=== PATIENT | female | born 1955 | race Caucasian/White ===

== ENCOUNTER 2017-04-12 08:50 | Inpatient (IN) | payer OTHER, MEDICARE ==
[2017-04-12 09:16] VITALS: BMI 34.1
--- NOTE | 2017-04-12 09:16 | PDOC ---
History of Present Illness - General Stated Complaint: SHORTNESS OF BREATH Time Seen by Provider: 04/12/17 08:58 History Source: Patient - History of Present Illness Initial Comments: 04/12/17 09:16 CC: "I have pain all over" Patient is a 61 y.o. female with a PMH SCC (R lung, Stage 3A, s/p chemotherapy + R middle lobectomy), recent (w/in last 2-3 months) hiatal hernia repair as well as brain aneurysm who presents c/o 3 day h/o of falls and chest pain. Patient states her chest pain started this morning after her 2:30 a.m. fall is stabbing, bilateral, extends bilaterally around her rib cage and is not pleuritic. Patient states she has been falling multiple times while trying to ambulate and is unable to identify any focal weakness ("I just fall") and denies any pre-fall lightheadedness, chest pain, diaphoresis or exacerbation of her baseline shortness of breath. PMD: Patient recently relocating from [place] to , establishing care with Dr. Goss Past surgical: Hiatal hernia repair, R middle lobe lobectomy Social: (-) cigarettes, (-) alcohol, (-) marijuana/cocaine/heroin Allergies: Lorazepam, Codeine, Merperidine + multiple non medication allergies, no latex allergy, allergy to nylon Past History - Past Medical History Allergies/Adverse Reactions: Allergies Allergy/AdvReac Type Severity Reaction Status Date / Time codeine Allergy Verified 04/12/17 09:05 ethyl alcohol Allergy Verified 04/12/17 09:05 lorazepam [From Ativan] Allergy Verified 04/12/17 09:05 meperidine HCl [From Demerol] Allergy Verified 04/12/17 09:05 nylon Allergy Verified 04/12/17 09:05 peanut Allergy Verified 04/12/17 09:05 sulfamethoxazole Allergy Verified 04/12/17 09:05 [From Bactrim] trimethoprim [From Bactrim] Allergy Verified 04/12/17 09:05 wool Allergy Verified 04/12/17 09:05 Home Medications: Ambulatory Orders Amitriptyline HCl [Elavil -] 50 mg PO DAILY 04/12/17 Aspirin [Aspirin EC] 81 mg PO BID 04/12/17 Atorvastatin Ca [Lipitor] 20 mg PO HS 04/12/17 Cetirizine HCl [Zyrtec -] 10 mg PO DAILY 04/12/17 Diazepam [Valium] 10 mg PO BID 04/12/17 Dicyclomine HCl [Bentyl] 10 mg PO TID 04/12/17 Fluticasone Prop 0.05% Nasal [Flonase -] 2 spray NS DAILY 04/12/17 Gabapentin 800 mg PO TID 04/12/17 Hydrochlorothiazide [Hctz -] 12.5 mg PO DAILY 04/12/17 Hydromorphone [Dilaudid -] 4 mg PO Q4H 04/12/17 Levothyroxine [Synthroid -] 25 mcg PO DAILY 04/12/17 Lidocaine 1 each TP DAILY PRN 04/12/17 Meclizine HCl [Antivert -] 12.5 mg PO TID PRN 04/12/17 Metoprolol Tartrate 25 mg PO BID 04/12/17 Mometasone Furoate [Asmanex 220Mcg -] 1 inh IH DAILY 04/12/17 Montelukast Na [Singulair -] 10 mg PO HS 04/12/17 Pantoprazole Sodium [Protonix -] 40 mg PO DAILY 04/12/17 Paroxetine HCl [Paxil] 30 mg PO DAILY 04/12/17 Sucralfate [Carafate -] 1 gm PO DAILY PRN 04/12/17 Review of Systems - Review of Systems Constitutional: No: Diaphoresis, Fever HEENTM: No: Blurred Vision, Throat Pain Respiratory: No: Shortness of Breath Cardiac (ROS): Yes: Chest Pain, Palpitations ABD/GI: No: Constipated, Diarrhea : No: Burning, Dysuria Neurological: No: Headache, Numbness Psychiatric: No: Anxiety, Depression All Other Systems: Reviewed and Negative *Physical Exam - Physical Exam General Appearance: Yes: Nourished, Thin HEENT: positive: EOMI, Pharynx Normal Neck: positive: Trachea midline, Supple Respiratory/Chest: positive: Lungs Clear, Normal Breath Sounds Cardiovascular: positive: S1, S2 Gastrointestinal/Abdominal: positive: Soft Neurologic: positive: alternative dispute resolution mediator II-XII NML intact, Fully Oriented, Alert ED Treatment Course - LABORATORY CBC & Chemistry Diagram: 04/14/17 06:00 04/14/17 06:00 Medical Decision Making - Medical Decision Making 04/12/17 10:00 Patient is a 61 y.o. female who presents via EMS for a 3 day h/o multiple falls and possible AMS. On PE, patient is somewhat somnolent with slurred speech though A&O x4 with normal neurological exam. Initial DDx includes r/o ACS vs. Brain Hemmorhage vs Brain Aneursym vs. Medication Induced AMS vs. Brain Metastasis PLAN 1. CT Head 2. CXR 3. Sepsis Labs 4. BNP 04/12/17 12:24 UA negative for acute infection; source of infection possibly abdominal given patient's recent hiatal hernia repair, CT Abdomen/Pelvis ordered. As patient has h/o SCC with c/o of dyspnea and no medical documentation readily available, CT chest w/o contrast ordered showed LLL PNA, patient started on Vancomycin and Zoysn and admitted to inpatient medicine under Dr. Rogers. *DC/Admit/Observation/Transfer Diagnosis at time of Disposition: Pneumonia Qualifiers: Pneumonia type: aspiration pneumonia - Discharge Dispostion Condition at time of disposition: Good Admit: Yes
[2017-04-12 09:40] LABS: VENOUS BLOOD GAS HCO3 29.8 meq/L (19-25); VENOUS PH 7.39 (7.32-7.42)
--- NOTE | 2017-04-12 09:53 | PDOC ---
Attending Attestation - Resident Resident Name: Bonny Mayes - ED Attending Attestation I have performed the following: I have examined & evaluated the patient, The case was reviewed & discussed with the resident, I agree w/resident's findings & plan, Exceptions are as noted - HPI HPI: 04/12/17 09:48 61 F with h/o Stage III small cell lung CA, s/p partial lobectomy, currently on chemotherapy (last tx 10/2016), presenting to ER with 3 days of falls, weakness, and 1 day of chest pain + SOB. Pt reports feeling weak over the past 3 days and has had multiple falls. Denies lightheadedness/dizziness, denies LOC. She states that her legs just gave out under her. Pt denies F/C. Denies JUDGE/N/V. Endorses pain in her left chest wall after falling associated with some pain with deep inspiration. Denies SOB otherwise. Denies abdominal pain. Denies dysuria but reports some difficulty voiding completely. Denies incontinence of bowel, no saddle anesthesia, no back pain. Pt also reports having hernia repair surgery 4 weeks ago. Pt notes that she is on dilaudid and valium and last took both last night. Pt's family member states that she often becomes sleepy and slurs her speech when she is tired. They believe she is at her baseline mentation and behavior. - Physicial Exam PE: 04/12/17 11:05 "GENERAL: Somnolent but easily arousable, alert, and fully oriented, in no acute distress HEAD: No signs of trauma EYES: pupils pinpoint but reactive, EOMI, sclera anicteric, conjunctiva clear ENT: Auricles normal inspection, hearing grossly normal, nares patent, oropharynx clear without exudates. Moist mucosa NECK: Normal ROM, supple, no lymphadenopathy, JVD, or masses LUNGS: + bilateral chest wall TTP, Breath sounds equal, clear to auscultation bilaterally. No wheezes, and no crackles HEART: Regular rate and rhythm, normal S1 and S2, no murmurs, rubs or gallops ABDOMEN: Soft, nontender, normoactive bowel sounds. No guarding, no rebound. No masses EXTREMITIES: Normal range of motion, no edema. No clubbing or cyanosis. No cords, erythema, or tenderness NEUROLOGICAL: Cranial nerves II through XII intact. NORMAL speech, 5/5 strength and sensation in all extremities, cerebellar function intact, visual izquierdo intact SKIN: Warm, Dry, normal turgor, no rashes or lesions noted. - Medical Decision Making 04/12/17 11:30 61 F with multiple falls over 3 days, now with L chest wall pain. Pt with fever 100.4 here. Etiology of pt's falls likely related to infectious process. UTI vs PNA vs post-op infection. Pt with no neuro deficits on exam. Consider cardiac etiology of fall given chest pain. however, chest pain is likely 2/2 trauma. Pt had no syncopal episode during falls to suggest arrhythmia. - Labs, trops - CTH - CXR, UA - Consider CTAP to r/o post-op infection - Admit Heart Score/ECG Review - History History: Slightly suspicious - Electrocardiogram EKG: Non specific repolarization disturbance - Age Age: 45-65 - Risk Factors Risk Factors Heart Score: Yes Hx Obesity - ECG Impressions Comment:: 04/12/17 10:17 NSR, no LATRICIA/STDs, TWI in V1-V3 and II, III, aVF, intervals wnl
[2017-04-12 10:00] LABS: BASOPHIL 0.3 % (0-2.0); EOSINOPHIL 2.2 % (0-4.5); MCH 31.2 pg (25.7-33.7); MCHC 32.8 g/dl (32.0-36.0); MEAN CELL VOLUME 94.9 fl (80-96); MEAN PLT VOLUME 8.1 fl (7.5-11.1); NEUTROPHILS 73.9 % (42.8-82.8); PLATELET COUNT 202 K/MM3 (134-434); RDW 14.7 % (11.6-15.6); WHITE BLOOD COUNT 6.8 K/mm3 (4.0-10.0)
[2017-04-12 10:24] LABS: ALBUMIN 3.9 g/dl (3.4-5.0); ANION GAP 10 (8-16); BILIRUBIN,TOTAL 0.6 mg/dL (0.2-1.0); CALCIUM 8.9 mg/dL (8.5-10.1); CO2 30 mmol/L (21-32); CREATININE 1.6 mg/dL (0.55-1.02); GLUCOSE,RANDOM 103 mg/dL (74-106); SGPT/ALT 27 U/L (12-78); TOT PROT 7.2 g/dl (6.4-8.2)
[2017-04-12 10:27] LABS: ALK PHOS 162 U/L (45-117); TROPONIN I < 0.02 ng/ml (0.00-0.05)
[2017-04-12 10:35] LABS: CPK 370 IU/L (26-192); SGOT/AST 29 U/L (15-37)
[2017-04-12 10:44] LABS: INR 1.13 (0.82-1.09); PROTHROMBIN TIME (PATIENT) 12.5 SEC (9.98-11.88)
[2017-04-12 10:47] LABS: ACTIVATED PTT 27.3 SECONDS (26.9-34.4)
[2017-04-12] MEDS ORDERED: POTASSIUM CHLORIDE TABS 20 MEQ TABLET.ER (FP) PO ONE ×2 (11:07→11:11)
[2017-04-12 11:11] LABS: URINE APPEARANCE CLEAR; URINE BILIRUBIN NEGATIVE (NEGATIVE); URINE BLOOD NEGATIVE (NEGATIVE); URINE COLOR YELLOW; URINE GLUCOSE (UA) NEGATIVE (NEGATIVE); URINE KETONE NEGATIVE (NEGATIVE); URINE LEUK ESTERASE NEGATIVE (NEGATIVE); URINE NITRITE NEGATIVE (NEGATIVE); URINE PROTEIN NEGATIVE (NEGATIVE); URINE UROBILINOGEN NEGATIVE mg/dL (0.2-1.0)
[2017-04-12] MEDS ORDERED: PIPERACILLIN/TAZOB 3.375 GM/50 ML PRE-DOCKED IV ONE (13:20)
[2017-04-12] MEDS ORDERED: PIPERACILLIN/TAZOB 3.375 GM 50 ML IVPB ONE (13:26)
[2017-04-12] MEDS ORDERED: SUCRALFATE 1 GM TABLET (FP) PO PRN (15:33)
[2017-04-12] MEDS ORDERED: VANCOMYCIN 1 GRAM (PRE-DOCKED) 250 ML IVPB ONE ×2 (15:45→17:45)
--- NOTE | 2017-04-12 15:47 | HP ---
Admitting History and Physical - Primary Care Physician PCP: Curly Goss - Admission Chief Complaint: unable to obtain History of Present Illness: Ms Chopra is a 61 year old female who is new to our practice who comes in with falls and pain. Patient is incredibly somnolent and I am unable to obtain history. Per ER chief internal auditor she obtained history from the patient's family who were at the bedside. Patient has a history of somnolence and recently has been falling. Per ER note she also complains of chest pain. No further history is obtainable at this time. History Source: Medical Record Limitations to Obtaining History: Clinical Condition - Past Medical History Heme/Onc: Yes: Other (small cell lung cancer) - Past Surgical History Past Surgical History: Yes: Hernia Repair - Smoking History Smoking history: Never smoked Have you smoked in the past 12 months: No - Alcohol/Substance Use Hx Alcohol Use: No - Social History Usual Living Arrangement: Yes: Other (family assistance) ADL: Family Assistance Home Medications - Allergies Allergies/Adverse Reactions: Allergies Allergy/AdvReac Type Severity Reaction Status Date / Time codeine Allergy Verified 04/12/17 09:05 ethyl alcohol Allergy Verified 04/12/17 09:05 lorazepam [From Ativan] Allergy Verified 04/12/17 09:05 meperidine HCl [From Demerol] Allergy Verified 04/12/17 09:05 nylon Allergy Verified 04/12/17 09:05 peanut Allergy Verified 04/12/17 09:05 sulfamethoxazole Allergy Verified 04/12/17 09:05 [From Bactrim] trimethoprim [From Bactrim] Allergy Verified 04/12/17 09:05 wool Allergy Verified 04/12/17 09:05 - Home Medications Home Medications: Ambulatory Orders Amitriptyline HCl [Elavil -] 50 mg PO DAILY 04/12/17 Aspirin [Aspirin EC] 81 mg PO BID 04/12/17 Atorvastatin Ca [Lipitor] 20 mg PO HS 04/12/17 Cetirizine HCl [Zyrtec -] 10 mg PO DAILY 04/12/17 Diazepam [Valium] 10 mg PO BID 04/12/17 Dicyclomine HCl [Bentyl] 10 mg PO TID 04/12/17 Fluticasone Prop 0.05% Nasal [Flonase -] 2 spray NS DAILY 04/12/17 Gabapentin 800 mg PO TID 04/12/17 Hydrochlorothiazide [Hctz -] 12.5 mg PO DAILY 04/12/17 Hydromorphone [Dilaudid -] 4 mg PO Q4H 04/12/17 Levothyroxine [Synthroid -] 25 mcg PO DAILY 04/12/17 Lidocaine 1 each TP DAILY PRN 04/12/17 Meclizine HCl [Antivert -] 12.5 mg PO TID PRN 04/12/17 Metoprolol Tartrate 25 mg PO BID 04/12/17 Mometasone Furoate [Asmanex 220Mcg -] 1 inh IH DAILY 04/12/17 Montelukast Na [Singulair -] 10 mg PO HS 04/12/17 Pantoprazole Sodium [Protonix -] 40 mg PO DAILY 04/12/17 Paroxetine HCl [Paxil] 30 mg PO DAILY 04/12/17 Sucralfate [Carafate -] 1 gm PO DAILY PRN 04/12/17 Family Disease History - Family Disease History Family History: Unable to Obtain Review of Systems Unable to obtain ROS, reason: somnolence Physical Examination Vital Signs: Vital Signs Temperature 37.1 C 04/12/17 14:03 Pulse Rate 75 04/12/17 14:44 Respiratory Rate 16 04/12/17 14:44 Blood Pressure 90/56 04/12/17 14:44 O2 Sat by Pulse Oximetry (%) 96 04/12/17 14:44 Constitutional: Yes: Other (somnolent, arousable to voice and shaking) Eyes: Yes: Conjunctiva Clear, PERRL Cardiovascular: Yes: Regular Rate and Rhythm. No: Gallop, Murmur, Rub Respiratory: Yes: Regular, On Nasal O2, Rhonchi. No: CTA Bilaterally, Rales, Wheezes Gastrointestinal: Yes: Normal Bowel Sounds, Soft. No: Distention, Tenderness Extremities: Yes: WNL Edema: No Labs: CBC, BMP 04/12/17 09:14 04/12/17 09:14 Imaging - Results Chest X-ray: Report Reviewed, Image Reviewed Cat Scan: Report Reviewed Problem List - Problems (1) Pneumonia Assessment/Plan: -patient presents with somnolence and found to have a pneumonia -left lower lobe -unsure of last hospitalization or if aspiration secondary to somnolence -admit to telemetry for both somnolence and chest pain -ID consult -vancomycin and zosyn currently -follow up blood cultures Code(s): J18.9 - PNEUMONIA, UNSPECIFIED ORGANISM (2) Metabolic encephalopathy Assessment/Plan: -suspect secondary to infection and multiple pain medications -treat pneumonia -hold all somnolent agents -consult neurology Code(s): G93.41 - METABOLIC ENCEPHALOPATHY (3) Chest pain Assessment/Plan: -ER note says patient has chest pain -possibly secondary to falls -will check cardiac enzymes x3 -telemetry Code(s): R07.9 - CHEST PAIN, UNSPECIFIED (4) Small cell lung cancer in adult Assessment/Plan: -consult oncology since with liver mass Code(s): C34.90 - MALIGNANT NEOPLASM OF UNSP PART OF UNSP BRONCHUS OR LUNG (5) Liver mass Assessment/Plan: -as above Code(s): R16.0 - HEPATOMEGALY, NOT ELSEWHERE CLASSIFIED (6) Hypokalemia Assessment/Plan: -replaced in ED Code(s): E87.6 - HYPOKALEMIA (7) Fall Assessment/Plan: -fall risk precautions -PT consult Code(s): W19.XXXA - UNSPECIFIED FALL, INITIAL ENCOUNTER
[2017-04-12] MEDS: SODIUM CHLORIDE 1,000 ML IV SCH (15:50)
[2017-04-12] MEDS: POTASSIUM CHLORIDE 20 MEQ PREMIX IVPB 100 ML IVPB ONE ×2 (15:51→16:05)
[2017-04-12] MEDS ORDERED: KCL 10 MEQ IVPB 100 ML IVPB ONE (16:02)
[2017-04-12 16:05] LABS: ARTERIAL BLD GAS O2 SATURATION 93.6 % (90-98.9); ARTERIAL BLOOD GAS BASE EXCESS 4.5 meq/l (-2-2); ARTERIAL BLOOD GAS HCO3 29.3 meq/L (22-26); ARTERIAL BLOOD GAS PO2 69.7 mmHg (80-100); ARTERIAL BLOOD GAS pH 7.41 (7.35-7.45)
[2017-04-12 16:06] LABS: ART PUNCT SITE RIGHT RADIAL; METHEMOGLOBIN 0.6 % (0.4-1.5); PT. ON O2? YES
[2017-04-12 16:07] LABS: LPM/O2% 3; TYPE OF O2 NASAL O2
[2017-04-12] MEDS ORDERED: HYDROmorphone HCL CARPU-JECT 2 MG/1 ML DISP.SYRIN IVPB ONE (17:44)
--- NOTE | 2017-04-12 17:48 | CONSULT ---
Consult Consult Specialty:: Oncology - History of Present Illness History of Present Illness: Patient is a 61 y.o. female with a PMH SCC (R lung, Stage 3A, s/p chemotherapy + R middle lobectomy), recent (w/in last 2-3 months) hiatal hernia repair as well as brain aneursym admitted for AMS/PNA/UTI. Pt seen and examined detailed hx obtained from sister at bedside. - History Source History Provided By: Family Member Limitations to Obtaining History: Clinical Condition - Past Medical History ...: No - Past Surgical History Past Surgical History: Yes: Hernia Repair - Alcohol/Substance Use Hx Alcohol Use: No - Smoking History Smoking history: Never smoked Have you smoked in the past 12 months: No - Social History ADL: Family Assistance Home Medications - Allergies Allergies/Adverse Reactions: Allergies Allergy/AdvReac Type Severity Reaction Status Date / Time codeine Allergy Verified 04/12/17 09:05 ethyl alcohol Allergy Verified 04/12/17 09:05 lorazepam [From Ativan] Allergy Verified 04/12/17 09:05 meperidine HCl [From Demerol] Allergy Verified 04/12/17 09:05 nylon Allergy Verified 04/12/17 09:05 peanut Allergy Verified 04/12/17 09:05 sulfamethoxazole Allergy Verified 04/12/17 09:05 [From Bactrim] trimethoprim [From Bactrim] Allergy Verified 04/12/17 09:05 wool Allergy Verified 04/12/17 09:05 - Home Medications Home Medications: Ambulatory Orders Amitriptyline HCl [Elavil -] 50 mg PO DAILY 04/12/17 Aspirin [Aspirin EC] 81 mg PO BID 04/12/17 Atorvastatin Ca [Lipitor] 20 mg PO HS 04/12/17 Cetirizine HCl [Zyrtec -] 10 mg PO DAILY 04/12/17 Diazepam [Valium] 10 mg PO BID 04/12/17 Dicyclomine HCl [Bentyl] 10 mg PO TID 04/12/17 Fluticasone Prop 0.05% Nasal [Flonase -] 2 spray NS DAILY 04/12/17 Gabapentin 800 mg PO TID 04/12/17 Hydrochlorothiazide [Hctz -] 12.5 mg PO DAILY 04/12/17 Hydromorphone [Dilaudid -] 4 mg PO Q4H 04/12/17 Levothyroxine [Synthroid -] 25 mcg PO DAILY 04/12/17 Lidocaine 1 each TP DAILY PRN 04/12/17 Meclizine HCl [Antivert -] 12.5 mg PO TID PRN 04/12/17 Metoprolol Tartrate 25 mg PO BID 04/12/17 Mometasone Furoate [Asmanex 220Mcg -] 1 inh IH DAILY 04/12/17 Montelukast Na [Singulair -] 10 mg PO HS 04/12/17 Pantoprazole Sodium [Protonix -] 40 mg PO DAILY 04/12/17 Paroxetine HCl [Paxil] 30 mg PO DAILY 04/12/17 Sucralfate [Carafate -] 1 gm PO DAILY PRN 04/12/17 Review of Systems - Review of Systems Constitutional: reports: Lethargy Neck: denies: Lumps, Pain on Movement Respiratory: denies: Cough Gastrointestinal: denies: Abdominal Pain, Bloating, Constipation Genitourinary: reports: Incontinence Physical Exam Vital Signs: Vital Signs Temperature 98.5 F 04/12/17 16:56 Pulse Rate 90 04/12/17 16:56 Respiratory Rate 20 04/12/17 16:56 Blood Pressure 116/84 04/12/17 16:56 O2 Sat by Pulse Oximetry (%) 96 04/12/17 16:56 Constitutional: Yes: Mild Distress, Other (looks drowsy.) Eyes: Yes: Conjunctiva Clear HENT: Yes: Atraumatic, Normocephalic Neck: Yes: Supple Cardiovascular: Yes: Regular Rate and Rhythm Respiratory: Yes: Regular, CTA Bilaterally Gastrointestinal: Yes: Normal Bowel Sounds, Soft, Abdomen, Obese Edema: No Neurological: Yes: Alert, Oriented ...Motor Strength: WNL Psychiatric: Yes: Alert, Oriented Imaging - Results Cat Scan: Report Reviewed Problem List - Problems (1) Liver mass Code(s): R16.0 - HEPATOMEGALY, NOT ELSEWHERE CLASSIFIED (2) Metabolic encephalopathy Code(s): G93.41 - METABOLIC ENCEPHALOPATHY (3) Small cell lung cancer in adult Code(s): C34.90 - MALIGNANT NEOPLASM OF UNSP PART OF UNSP BRONCHUS OR LUNG (4) Fall Code(s): W19.XXXA - UNSPECIFIED FALL, INITIAL ENCOUNTER (5) Pneumonia Code(s): J18.9 - PNEUMONIA, UNSPECIFIED ORGANISM Qualifiers: Pneumonia type: aspiration pneumonia Assessment/Plan 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 -Non contrast imaging with a liver mass, difficult to tell etiology ( either primary hepatoma or Lung met vs other), would need contrast imaging study ( CT w / liver protocol vs MRI liver/abdomen) once kidney fn stabilizes. ??pt with aneurysm repair and has coils ?MRI compatibility -AMS: CTH negative, likely metabolic (sepsis/narcotics)?Aspiration PNA/uti, on Abx, ID f/u. Need to r/o brain mets, once renal fn stabilizes,if MRI not feasible will do CTH w/contrast -TITO: IVF/Abx -Will f/u on Neurology recs. -PET CT done at [facility] on 04/05/2017, need to follow-up on the results , will obtain more info from outside oncologist ( Dr.Kenneth Lomeli in [place] [phone]). -Pt requesting pain meds and states that she is in a lot of pain, I have explained to her sister the rationale for not giving her dilaudid/valium that she takes at home , she is at risk for respiratory compromise/aspiration, they verbalized understanding. -HCP/POA is the sister Ruma. Pt just shifted from [place]. will follow
[2017-04-12] MEDS ORDERED: DEXTROSE 5%-WATER - 50 ML IVPB ONE (17:55)
[2017-04-12] MEDS ORDERED: PIPERACILLIN/TAZOBACTAM 3.375 GM VIAL IVPB ONE (17:55)
[2017-04-12] MEDS ORDERED: traMADol HCL 50 MG TABLET PO ONE (17:59)
[2017-04-12] MEDS ORDERED: PIPERACILLIN/TAZOB 3.375 GM/50 ML PRE-DOCKED IVPB SCH ×2 (18:00)
[2017-04-12] MEDS ORDERED: PIPERACILLIN/TAZOB 3.375 GM 3.375 GM in DEXTROSE 5%-WATER - 50 ML IVPB SCH (18:00)
[2017-04-12 19:11] LABS: CPK 213 IU/L (26-192); TROPONIN I < 0.02 ng/ml (0.00-0.05)
[2017-04-12 19:15] LABS: FREE T4 0.78 ng/dl (0.76-1.46); THYROID STIMULATING HORMONE 1.66 uIU/ml (0.358-3.74)
[2017-04-12] MEDS: ATORVASTATIN CA 20 MG TABLET (FP) PO SCH (21:01)
[2017-04-12] MEDS: ASPIRIN COATED 81 MG TABLET.EC PO SCH (21:01)
[2017-04-12] MEDS: MONTELUKAST NA 10 MG TABLET PO SCH (21:01)
[2017-04-12] MEDS: METOPROLOL TARTRATE 25 MG TABLET (FP) PO SCH (21:02)
[2017-04-13] MEDS ORDERED: PIPERACILLIN/TAZOBACTAM 3.375 GM VIAL IVPB ONE ×3 (01:03→17:06)
[2017-04-13] MEDS ORDERED: DEXTROSE 5%-WATER - 50 ML IVPB ONE ×3 (01:04→17:07)
[2017-04-13] MEDS: PIPERACILLIN/TAZOB 3.375 GM 3.375 GM in DEXTROSE 5%-WATER - 50 ML IVPB SCH ×3 (01:12→17:30)
[2017-04-13] MEDS: LEVOTHYROXINE NA 25 MCG TABLET (FP) PO SCH (06:16)
[2017-04-13] MEDS: SODIUM CHLORIDE 1,000 ML IV SCH ×2 (06:17→17:17)
--- NOTE | 2017-04-13 08:01 | CON.NEURO ---
Consult Consult Specialty:: neurology - History of Present Illness Chief Complaint: AMS History of Present Illness: Patient is a 61 y.o. female with a PMH SCC (R lung, Stage 3A, s/p chemotherapy + R middle lobectomy), recent (w/in last 2-3 months) hiatal hernia repair as well as brain aneursym admitted for AMS/PNA/UTI. Pt seen and examined at the bedside. She is awake and alert , states that has dx as lung cancer last year , and received chemo. She c/o joint pain and is on gabapentin for RA. She denies any headache, weakness or numbness, no h/o stroke , NH etc. - Past Medical History ...: No - Past Surgical History Past Surgical History: Yes: Hernia Repair - Alcohol/Substance Use Hx Alcohol Use: No - Smoking History Smoking history: Never smoked Have you smoked in the past 12 months: No - Social History ADL: Family Assistance Home Medications - Allergies Allergies/Adverse Reactions: Allergies Allergy/AdvReac Type Severity Reaction Status Date / Time codeine Allergy Verified 04/12/17 09:05 ethyl alcohol Allergy Verified 04/12/17 09:05 lorazepam [From Ativan] Allergy Verified 04/12/17 09:05 meperidine HCl [From Demerol] Allergy Verified 04/12/17 09:05 nylon Allergy Verified 04/12/17 09:05 peanut Allergy Verified 04/12/17 09:05 sulfamethoxazole Allergy Verified 04/12/17 09:05 [From Bactrim] trimethoprim [From Bactrim] Allergy Verified 04/12/17 09:05 wool Allergy Verified 04/12/17 09:05 - Home Medications Home Medications: Ambulatory Orders Amitriptyline HCl [Elavil -] 50 mg PO DAILY 04/12/17 Aspirin [Aspirin EC] 81 mg PO BID 04/12/17 Atorvastatin Ca [Lipitor] 20 mg PO HS 04/12/17 Cetirizine HCl [Zyrtec -] 10 mg PO DAILY 04/12/17 Diazepam [Valium] 10 mg PO BID 04/12/17 Dicyclomine HCl [Bentyl] 10 mg PO TID 04/12/17 Fluticasone Prop 0.05% Nasal [Flonase -] 2 spray NS DAILY 04/12/17 Gabapentin 800 mg PO TID 04/12/17 Hydrochlorothiazide [Hctz -] 12.5 mg PO DAILY 04/12/17 Hydromorphone [Dilaudid -] 4 mg PO Q4H 04/12/17 Levothyroxine [Synthroid -] 25 mcg PO DAILY 04/12/17 Lidocaine 1 each TP DAILY PRN 04/12/17 Meclizine HCl [Antivert -] 12.5 mg PO TID PRN 04/12/17 Metoprolol Tartrate 25 mg PO BID 04/12/17 Mometasone Furoate [Asmanex 220Mcg -] 1 inh IH DAILY 04/12/17 Montelukast Na [Singulair -] 10 mg PO HS 04/12/17 Pantoprazole Sodium [Protonix -] 40 mg PO DAILY 04/12/17 Paroxetine HCl [Paxil] 30 mg PO DAILY 04/12/17 Sucralfate [Carafate -] 1 gm PO DAILY PRN 04/12/17 Review of Systems - Review of Systems Eyes: reports: No Symptoms HENT: reports: No Symptoms Neck: reports: No Symptoms Cardiovascular: reports: No Symptoms Psychiatric: reports: No Symptoms (All 14 0rgans reviewed and -ve beside HPI .) Physical Exam-Neuro Vital Signs: Vital Signs Temperature 97.7 F 04/13/17 06:00 Pulse Rate 73 04/13/17 06:00 Respiratory Rate 16 04/13/17 06:00 Blood Pressure 106/64 04/13/17 06:00 O2 Sat by Pulse Oximetry (%) 96 04/12/17 19:44 Constitutional: Yes: No Distress Neck: Yes: Supple Cardiovascular: Yes: WNL, Regular Rate and Rhythm Respiratory: Yes: Regular Musculoskeletal: Yes: Other (JOINT PAIN ) Edema: No Psychiatric: Yes: Alert, Oriented Labs: INR, PTT INR 1.13 (0.82-1.09) 04/12/17 09:14 - Neuro Exam Level Of Consciousness: Yes: Oriented to Person, Oriented to Place, Oriented to Time Eyes: Yes: PERRLA Speech: WNL Cranial Nerves II-XII Intact: Yes Gag: Present DTR's: 1+ Left Bicep, 1+ Right Bicep, 1+ Left Tricep, 1+ Right Tricep, 1+ Left Brachioradialis, 1+ Right Brachioradialis, 1+ Left Achilles, 1+ Right Achilles Response to light touch: Normal Response to pain prick: Normal Coordination: Normal: Finger to Nose Motor Strength: 4/5: Left Arm, Right Arm, Left Leg, Right Leg (Moves all exts ) Gait: Other (Deferred ) Imaging - Results Cat Scan: Report Reviewed, Image Reviewed (No acute finding) Problem List - Problems (1) Encephalopathy Code(s): G93.40 - ENCEPHALOPATHY, UNSPECIFIED (2) Lung cancer Code(s): C34.90 - MALIGNANT NEOPLASM OF UNSP PART OF UNSP BRONCHUS OR LUNG (3) SCC (squamous cell carcinoma of lung) Code(s): C34.90 - MALIGNANT NEOPLASM OF UNSP PART OF UNSP BRONCHUS OR LUNG (4) UTI (urinary tract infection) Code(s): N39.0 - URINARY TRACT INFECTION, SITE NOT SPECIFIED (5) TITO (acute kidney injury) Code(s): N17.9 - ACUTE KIDNEY FAILURE, UNSPECIFIED Assessment/Plan 61 y/o w h/o SCC R lung , s/p chemo RA , chronic pain syndrome p/w AMS due to possible infectious / metabolic encephalopathy due to pneumonia , UTI , TITO . MS is improving , no focal neurological deficit on exam ; will obtain MRI brain wo to exclude brain mets. -Will obtain PET scan result from other facility. -Neurocheck q 4 h -Ketorolac im PRN -SE -Will resume gabapentin 300 mg tid when able to swallow Health maintenance per primary team. HOUSTON Webster MD
[2017-04-13 09:12] LABS: BASOPHIL 0.4 % (0-2.0); EOSINOPHIL 4.5 % (0-4.5); MCH 31.3 pg (25.7-33.7); MCHC 33.3 g/dl (32.0-36.0); MEAN CELL VOLUME 93.9 fl (80-96); MEAN PLT VOLUME 7.8 fl (7.5-11.1); NEUTROPHILS 69.8 % (42.8-82.8); PLATELET COUNT 177 K/MM3 (134-434); RDW 14.4 % (11.6-15.6); WHITE BLOOD COUNT 5.1 K/mm3 (4.0-10.0)
[2017-04-13 09:19] LABS: INR 1.13 (0.82-1.09); PROTHROMBIN TIME (PATIENT) 12.5 SEC (9.98-11.88)
[2017-04-13 09:22] LABS: ACTIVATED PTT 27.6 SECONDS (26.9-34.4)
--- NOTE | 2017-04-13 09:28 | EKG ---
Test Reason : Blood Pressure : / mmHG Vent. Rate : 097 BPM Atrial Rate : 097 BPM P-R Int : 180 ms QRS Dur : 102 ms QT Int : 356 ms P-R-T Axes : 035 029 004 degrees QTc Int : 452 ms POOR DATA QUALITY, INTERPRETATION MAY BE ADVERSELY AFFECTED NORMAL SINUS RHYTHM POSSIBLE LEFT ATRIAL ENLARGEMENT CANNOT RULE OUT INFERIOR INFARCT , AGE UNDETERMINED ABNORMAL ECG NO PREVIOUS ECGS AVAILABLE Confirmed by MD AMANDA, JACQUIE ([id number]) on 04/13/2017 9:28:05 AM Referred By: Confirmed By:JACQUIE PATEL MD
[2017-04-13 09:31] LABS: ALBUMIN 2.8 g/dl (3.4-5.0); ANION GAP 10 (8-16); BILIRUBIN,TOTAL 0.8 mg/dL (0.2-1.0); CALCIUM 8.2 mg/dL (8.5-10.1); CO2 29 mmol/L (21-32); CREATININE 1.3 mg/dL (0.55-1.02); GLUCOSE,RANDOM 88 mg/dL (74-106); MAGNESIUM 2.2 mg/dL (1.8-2.4); PHOSPHOROUS 3.1 mg/dL (2.5-4.9); SGOT/AST 16 U/L (15-37); SGPT/ALT 18 U/L (12-78); TOT PROT 5.5 g/dl (6.4-8.2)
[2017-04-13 09:32] LABS: ALK PHOS 117 U/L (45-117); CPK 132 IU/L (26-192); TROPONIN I < 0.02 ng/ml (0.00-0.05)
[2017-04-13] MEDS: ASPIRIN COATED 81 MG TABLET.EC PO SCH ×2 (09:56→21:17)
[2017-04-13] MEDS: LORATADINE 10 MG TABLET PO SCH (09:56)
[2017-04-13] MEDS: PANTOPRAZOLE 40 MG TABLET (FP) PO SCH (09:57)
[2017-04-13] MEDS: METOPROLOL TARTRATE 25 MG TABLET (FP) PO SCH ×2 (09:57→21:16)
[2017-04-13] MEDS ORDERED: PARoxetine HCL 30 MG TABLET PO SCH (10:00)
[2017-04-13] MEDS ORDERED: PT OWN MED DRAWER 7, Y5N ONE ×4 (10:21→15:41)
[2017-04-13] MEDS: FLUTICASONE PROP 0.05% 16 GM NASAL SPRAY NS SCH ×2 (10:24→14:03)
[2017-04-13] MEDS: PAROXETINE HCL 20 MG, PAROXETINE HCL 10 MG PO SCH (10:27)
[2017-04-13] MEDS: MOMETASONE FUROATE 220 MCG/IH INHALER IH SCH (10:32)
--- NOTE | 2017-04-13 13:10 | PN ---
Physical Exam: SUBJECTIVE: Patient seen and examined. She reports being in increased pain when she moves and her recent hernia was in her throat. She feels something has torn inside her following the surgery. OBJECTIVE: Vital Signs Period Temp Pulse Resp BP Sys/Sloan Pulse Ox Last 24 Hr 97.7 F-98.6 F 72-90 16-20 90-116/55-84 89-96 PE Neuro: awake, alert, mental slowing, cn 2-12intact Pulm: diminished, LL lobe incision, tenderness to palpation CV: s1 s2 rrr + sternal reproducible CP Abd: s nd +bs : + vaca clear urine Ext: + 1 edema, warm Laboratory Results - last 24 hr 04/12/17 04/12/17 04/13/17 15:46 18:00 07:30 WBC 5.1 RBC 3.08 L Hgb 9.6 L D Hct 29.0 L MCV 93.9 MCH 31.3 MCHC 33.3 RDW 14.4 Plt Count 177 MPV 7.8 Neutrophils % 69.8 Lymphocytes % 18.3 Monocytes % 7.0 Eosinophils % 4.5 D Basophils % 0.4 INR PTT (Actin FS) Puncture Site Right radial ABG pH 7.41 ABG pCO2 at Pt Temp 47.3 H ABG pO2 at Pt Temp 69.7 L ABG HCO3 29.3 H ABG O2 Sat (Measured) 93.6 ABG O2 Content 12.7 L ABG Base Excess 4.5 H Phil Test Not applicable Carboxyhemoglobin 1.9 Methemoglobin 0.6 O2 Delivery Device Nasal o2 Oxygen Flow Rate 3 Sodium Potassium Chloride Carbon Dioxide Anion Gap BUN Creatinine Creat Clearance w eGFR Random Glucose Calcium Phosphorus Magnesium Total Bilirubin AST ALT Alkaline Phosphatase Creatine Kinase 213 H Creatine Kinase Index 0.8 CK-MB (CK-2) 1.848 Troponin I < 0.02 Total Protein Albumin 04/13/17 04/13/17 04/13/17 07:30 07:30 07:30 WBC RBC Hgb Hct MCV MCH MCHC RDW Plt Count MPV Neutrophils % Lymphocytes % Monocytes % Eosinophils % Basophils % INR 1.13 PTT (Actin FS) 27.6 Puncture Site ABG pH ABG pCO2 at Pt Temp ABG pO2 at Pt Temp ABG HCO3 ABG O2 Sat (Measured) ABG O2 Content ABG Base Excess Phil Test Carboxyhemoglobin Methemoglobin O2 Delivery Device Oxygen Flow Rate Sodium 144 Potassium 3.5 Chloride 105 Carbon Dioxide 29 Anion Gap 10 BUN 13 D Creatinine 1.3 H Creat Clearance w eGFR 41.92 Random Glucose 88 Calcium 8.2 L Phosphorus 3.1 Magnesium 2.2 Total Bilirubin 0.8 D AST 16 D ALT 18 D Alkaline Phosphatase 117 D Creatine Kinase 132 Creatine Kinase Index CK-MB (CK-2) Troponin I < 0.02 Total Protein 5.5 L D Albumin 2.8 L D Active Medications Generic Name Dose Route Start Last Admin Trade Name Gigiq PRN Reason Stop Dose Admin Aspirin 81 mg 04/12/17 22:00 04/13/17 09:56 Ecotrin - PO 81 mg BID MARILIN Administration Atorvastatin Calcium 20 mg 04/12/17 22:00 04/12/17 21:01 Lipitor - PO 20 mg HS MARILIN Administration Fluticasone Propionate 2 spray 04/13/17 10:00 04/13/17 10:24 Flonase - NS Not Given DAILY MARILIN Gabapentin 300 mg 04/13/17 14:00 Neurontin - PO TID MARILIN Sodium Chloride 1,000 mls @ 75 mls/hr 04/12/17 15:45 04/13/17 06:17 Normal Saline - IV 75 mls/hr ASDIR MARILIN Administration Piperacillin Sod/Tazobactam 50 mls @ 100 mls/hr 04/13/17 02:00 04/13/17 10:15 Sod 3.375 gm/ Dextrose IVPB 100 mls/hr Q8H-IV MARILIN Administration Protocol Levothyroxine Sodium 25 mcg 04/13/17 07:00 04/13/17 06:16 Synthroid - PO 25 mcg DAILY@0700 MARILIN Administration Loratadine 10 mg 04/13/17 10:00 04/13/17 09:56 Claritin - PO 10 mg DAILY MARILIN Administration Metoprolol Tartrate 25 mg 04/12/17 22:00 04/13/17 09:57 Lopressor - PO 25 mg BID MARILIN Administration Mometasone Furoate 1 puff 04/13/17 10:00 04/13/17 10:32 Asmanex 220mcg - IH 220 mcg DAILY MARILIN Administration Montelukast Sodium 10 mg 04/12/17 22:00 04/12/17 21:01 Singulair - PO 10 mg HS MARILIN Administration Pantoprazole Sodium 40 mg 04/13/17 10:00 04/13/17 09:57 Protonix - PO 40 mg DAILY MARILIN Administration Paroxetine HCl 20 mg/ 30 mg 04/13/17 10:00 04/13/17 10:27 Paroxetine HCl 10 mg PO 30 mg DAILY MARILIN Administration Sucralfate 1 gm 04/12/17 15:33 Carafate - PO DAILY PRN stomach pain Assessment: 61 year old female with PMHx Stage III small cell lung CA, s/p partial lobectomy, currently on chemotherapy (last tx 10/2016), recent hernia repair 2-3 weeks ago admitted with 3 days of falls, weakness, and 1 day of chest pain + SOB. Plan: 1. Hypoxia/chest pain - Requiring increased oxygen - Will obtain CTA r/o PE given recent surgery and hypercoauable state - Serial trops negative, CP reproducible, possible from recent surgery - Pulmonary requested to see 2. Right lung scc, stage 3A - Liver mass seen on CT ? hepatoma vs lung met - Will need contrast imaging study vs MRI liver/abd (however ?aneurysm repair as coils seen on Head CT) - Oncology following, PET done at [place] 04/05/17, Dr.Kenneth Lomeli in [place] [phone] 3. LL PNA - ? aspiration - s/p vanco - Continue Zosyn - Continue IVF 4. Frequent falls, increased pain - MRA r/o brain mets - Will start gabapentin 300mg TID for pain - PRN ultram 5. HTN - Stable, on the lower side, can decrease to daily if needed - Metoprolol 25mg BID 6. Hypothyroid - Synthroid 88mcg daily 7. TITO - Baseline cr unknown - Cr improving - IVF as above 8. DVT ppx - Lovenox sq Visit type - Emergency Visit Emergency Visit: Yes ED Registration Date: 04/12/17 Care time: The patient presented to the Emergency Department on the above date and was hospitalized for further evaluation of their emergent condition. - New Patient This patient is new to me today: Yes Date on this admission: 04/13/17 - Critical Care Critical Care patient: No
--- NOTE | 2017-04-13 13:18 | PN ---
Progress Note (short form) - Note Progress Note: Seen in follow up. Sleeping in bed. Reports ongoing back pain predominantly. Meds reviewed. Current Medications Generic Name Dose Route Start Last Admin Trade Name Tanner PRN Reason Stop Dose Admin Aspirin 81 mg 04/12/17 22:00 04/13/17 09:56 Ecotrin - PO 81 mg BID MARILIN Administration Atorvastatin Calcium 20 mg 04/12/17 22:00 04/12/17 21:01 Lipitor - PO 20 mg HS MARILIN Administration Fluticasone Propionate 2 spray 04/13/17 10:00 04/13/17 10:24 Flonase - NS Not Given DAILY MARILIN Gabapentin 300 mg 04/13/17 14:00 Neurontin - PO TID MARILIN Sodium Chloride 1,000 mls @ 75 mls/hr 04/12/17 15:45 04/13/17 06:17 Normal Saline - IV 75 mls/hr ASDIR MARILIN Administration Piperacillin Sod/Tazobactam 50 mls @ 100 mls/hr 04/13/17 02:00 04/13/17 10:15 Sod 3.375 gm/ Dextrose IVPB 100 mls/hr Q8H-IV MARILIN Administration Protocol Levothyroxine Sodium 25 mcg 04/13/17 07:00 04/13/17 06:16 Synthroid - PO 25 mcg DAILY@0700 MARILIN Administration Loratadine 10 mg 04/13/17 10:00 04/13/17 09:56 Claritin - PO 10 mg DAILY MARILIN Administration Metoprolol Tartrate 25 mg 04/12/17 22:00 04/13/17 09:57 Lopressor - PO 25 mg BID MARILIN Administration Mometasone Furoate 1 puff 04/13/17 10:00 04/13/17 10:32 Asmanex 220mcg - IH 220 mcg DAILY MARILIN Administration Montelukast Sodium 10 mg 04/12/17 22:00 04/12/17 21:01 Singulair - PO 10 mg HS MARILIN Administration Pantoprazole Sodium 40 mg 04/13/17 10:00 04/13/17 09:57 Protonix - PO 40 mg DAILY MARILIN Administration Paroxetine HCl 20 mg/ 30 mg 04/13/17 10:00 04/13/17 10:27 Paroxetine HCl 10 mg PO 30 mg DAILY MARILIN Administration Sucralfate 1 gm 04/12/17 15:33 Carafate - PO DAILY PRN stomach pain On exam: Last Vital Signs Temp Pulse Resp BP Pulse Ox 97.7 F 79 16 106/64 94 L 04/13/17 06:00 04/13/17 11:17 04/13/17 06:00 04/13/17 06:00 04/13/17 11:17 General: Supine in bed, obese. Extremities: No pallor, no icterus. Chest:good AE bilaterally, clear. Abdomen: Soft, no organomegaly, no masses. Neuro: Drowsy but rousable, interactive and responsive, generally oriented, occasional word-finding difficulties, non-focal. CVS: Normal sinus rhythm, S1, S2, no gallop or murmur. CBC, BMP 04/13/17 07:30 04/13/17 07:30 Assessment. 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 Non contrast imaging with a liver mass, not characterized (either primary hepatoma vs met vs other), would need contrast imaging study (CT w/ liver protocol vs MRI liver/abdomen) once kidney fn stabilizes. Prior aneurysm repair and has coils - ?MRI compatibility AMS: CTH negative, likely metabolic (sepsis/narcotics) - appreciate input neurology - apparently more alert now than on admission. TITO: IVF - improving. Suspicion of penumonia - empiric antibiotics. -PET CT done at [facility] on 04/05/2017, need to follow-up on the results , will obtain more info from outside oncologist (Dr.Kenneth Lomeli in [place] [phone]). Will follow.
--- NOTE | 2017-04-13 13:26 | CON.ID ---
Consult Consult Specialty:: infectious diseases Referred by:: weakness Reason for Consultation:: r/o uti/pna - History of Present Illness Chief Complaint: weakness with frequent falls History of Present Illness: 61 y.o. female with a PMH SCC (R lung, Stage 3A, s/p chemotherapy + R middle lobectomy), recent (w/in last 2-3 months) hiatal hernia repair as well as brain aneursym admitted for AMS/PNA/UTI. She is awake and alert , states that has dx as lung cancer last year , and received chemo. She c/o joint pain and is on gabapentin for RA. She denies any headache, weakness or numbness, no h/o stroke , [place] ETC. patient denies any fever,it seems patient when admitted was somnolent and was not able to give any history she is currently awake and alert and does not look she is any distress patient has chronic vaca and according to her her doctor at [facility] had treated her with abx for uti patients main complaint is weakness and has multiple falls patient denies any other symptoms - History Source History Provided By: Patient Limitations to Obtaining History: No Limitations - Past Medical History ...: No - Past Surgical History Past Surgical History: Yes: Hernia Repair - Alcohol/Substance Use Hx Alcohol Use: No - Smoking History Smoking history: Never smoked Have you smoked in the past 12 months: No - Social History ADL: Family Assistance Home Medications - Allergies Allergies/Adverse Reactions: Allergies Allergy/AdvReac Type Severity Reaction Status Date / Time codeine Allergy Verified 04/12/17 09:05 ethyl alcohol Allergy Verified 04/12/17 09:05 lorazepam [From Ativan] Allergy Verified 04/12/17 09:05 meperidine HCl [From Demerol] Allergy Verified 04/12/17 09:05 nylon Allergy Verified 04/12/17 09:05 peanut Allergy Verified 04/12/17 09:05 sulfamethoxazole Allergy Verified 04/12/17 09:05 [From Bactrim] trimethoprim [From Bactrim] Allergy Verified 04/12/17 09:05 wool Allergy Verified 04/12/17 09:05 - Home Medications Home Medications: Ambulatory Orders Amitriptyline HCl [Elavil -] 50 mg PO DAILY 04/12/17 Aspirin [Aspirin EC] 81 mg PO BID 04/12/17 Atorvastatin Ca [Lipitor] 20 mg PO HS 04/12/17 Cetirizine HCl [Zyrtec -] 10 mg PO DAILY 04/12/17 Diazepam [Valium] 10 mg PO BID 04/12/17 Dicyclomine HCl [Bentyl] 10 mg PO TID 04/12/17 Fluticasone Prop 0.05% Nasal [Flonase -] 2 spray NS DAILY 04/12/17 Gabapentin 800 mg PO TID 04/12/17 Hydrochlorothiazide [Hctz -] 12.5 mg PO DAILY 04/12/17 Hydromorphone [Dilaudid -] 4 mg PO Q4H 04/12/17 Levothyroxine [Synthroid -] 25 mcg PO DAILY 04/12/17 Lidocaine 1 each TP DAILY PRN 04/12/17 Meclizine HCl [Antivert -] 12.5 mg PO TID PRN 04/12/17 Metoprolol Tartrate 25 mg PO BID 04/12/17 Mometasone Furoate [Asmanex 220Mcg -] 1 inh IH DAILY 04/12/17 Montelukast Na [Singulair -] 10 mg PO HS 04/12/17 Pantoprazole Sodium [Protonix -] 40 mg PO DAILY 04/12/17 Paroxetine HCl [Paxil] 30 mg PO DAILY 04/12/17 Sucralfate [Carafate -] 1 gm PO DAILY PRN 04/12/17 Review of Systems - Review of Systems Constitutional: reports: Weakness, Other Eyes: reports: No Symptoms HENT: reports: No Symptoms Neck: reports: No Symptoms Cardiovascular: reports: No Symptoms Respiratory: reports: Cough Gastrointestinal: reports: No Symptoms Genitourinary: reports: No Symptoms Musculoskeletal: reports: Other Integumentary: reports: No Symptoms Neurological: reports: No Symptoms Endocrine: reports: No Symptoms Hematology/Lymphatic: reports: No Symptoms Psychiatric: reports: No Symptoms Physical Exam Vital Signs: Vital Signs Temperature 97.7 F 04/13/17 06:00 Pulse Rate 79 04/13/17 11:17 Respiratory Rate 16 04/13/17 06:00 Blood Pressure 106/64 04/13/17 06:00 O2 Sat by Pulse Oximetry (%) 94 L 04/13/17 11:17 Constitutional: Yes: Well Nourished, No Distress, Calm Eyes: Yes: Conjunctiva Clear HENT: Yes: Atraumatic, Normocephalic Neck: Yes: Supple, Trachea Midline Cardiovascular: Yes: Regular Rate and Rhythm Respiratory: Yes: Diminished (left side) Gastrointestinal: Yes: Normal Bowel Sounds, Soft Renal/: Yes: [place] Present Musculoskeletal: Yes: WNL, Muscle Weakness Neurological: Yes: Alert, Oriented Psychiatric: Yes: Alert, Oriented Labs: CBC, BMP 04/13/17 07:30 04/13/17 07:30 Imaging - Results Chest X-ray: Report Reviewed, Image Reviewed Cat Scan: Report Reviewed, Image Reviewed Assessment/Plan this patient with multiple medical issues now admitted with somnolency, suspicion of uti,pna and weakenss with frequent falls according to the history her frequency of falls have increased the way the history is i am worried about multiple issues and uti could be a factor looking at the patients ct scan and her other imaging studies i have less suspicion of pna though with her history i cannot rule it out also the urine looks pretty clean Problem List - Problems (1) Encephalopathy Code(s): G93.40 - ENCEPHALOPATHY, UNSPECIFIED (2) Lung cancer Code(s): C34.90 - MALIGNANT NEOPLASM OF UNSP PART OF UNSP BRONCHUS OR LUNG (3) SCC (squamous cell carcinoma of lung) Code(s): C34.90 - MALIGNANT NEOPLASM OF UNSP PART OF UNSP BRONCHUS OR LUNG (4) UTI (urinary tract infection) Code(s): N39.0 - URINARY TRACT INFECTION, SITE NOT SPECIFIED (5) TITO (acute kidney injury) Code(s): N17.9 - ACUTE KIDNEY FAILURE, UNSPECIFIED pna uti i am going to continue abx on the patient because of her picture also i am worried about the finding on the liver is it a mets. neurology is on the case plan continue zosyn incentive kota await for cx reports consider doing t3,t4,tsh rest as per primary team
--- NOTE | 2017-04-13 13:45 | PN ---
Progress Note (short form) - Note Progress Note: PULMONARY CONSULTATION DICTATED 04/13/17 IMP ACUTE HYPOXEMIC RESPIRATORY FAILURE R/O PE,ATELECTASIS BILATERAL CONSOLIDATIONS ?PNEUMONIA,?ATELECTASIS LUNG CA SMALL CELL S/P RML LOBECTOMY,CHEMO S/P LEFT THORACOTOMY SECONDARY TO HIATAL HERNIA REPAIR CHEST PAIN LIVER MASS ?MET HTN PLAN O2 ANTIBIOTICS PER ID INHALED BRONCHODILATORS CHEST CTA LOVENOX INCENTIVE SPIROMETER DR WETZEL Problem List - Problems (1) TITO (acute kidney injury) Code(s): N17.9 - ACUTE KIDNEY FAILURE, UNSPECIFIED (2) Liver mass Code(s): R16.0 - HEPATOMEGALY, NOT ELSEWHERE CLASSIFIED (3) Lung cancer Code(s): C34.90 - MALIGNANT NEOPLASM OF UNSP PART OF UNSP BRONCHUS OR LUNG (4) SCC (squamous cell carcinoma of lung) Code(s): C34.90 - MALIGNANT NEOPLASM OF UNSP PART OF UNSP BRONCHUS OR LUNG (5) Small cell lung cancer in adult Code(s): C34.90 - MALIGNANT NEOPLASM OF UNSP PART OF UNSP BRONCHUS OR LUNG (6) Acute hypoxemic respiratory failure Code(s): J96.01 - ACUTE RESPIRATORY FAILURE WITH HYPOXIA (7) Chest pain Code(s): R07.9 - CHEST PAIN, UNSPECIFIED (8) Pneumonia Code(s): J18.9 - PNEUMONIA, UNSPECIFIED ORGANISM Qualifiers: Pneumonia type: aspiration pneumonia
[2017-04-13] MEDS: GABAPENTIN 300 MG CAPSULE (FP) PO SCH ×2 (13:56→21:17)
[2017-04-13] MEDS: ENOXAPARIN NA (PORCINE) 100 MG/1 ML DISP.SYRIN SQ SCH ×2 (13:59→21:17)
[2017-04-13] MEDS: TIOTROPIUM BROMIDE 18 MCG/INH (DEVICE W/ 5 CAPSULES) IH SCH (15:37)
[2017-04-13] MEDS ORDERED: ALBUTEROL SO4 2.5/IPRATROPIUM 0.5 INH SOL 3 ML VIAL.NEB. NEB SCH (18:00)
[2017-04-13] MEDS: ATORVASTATIN CA 20 MG TABLET (FP) PO SCH (21:17)
[2017-04-13] MEDS: MONTELUKAST NA 10 MG TABLET PO SCH (21:17)
[2017-04-14] MEDS ORDERED: DEXTROSE 5%-WATER - 50 ML IVPB ONE ×3 (01:06→18:15)
[2017-04-14] MEDS ORDERED: PIPERACILLIN/TAZOBACTAM 3.375 GM VIAL IVPB ONE ×3 (01:06→18:15)
[2017-04-14] MEDS: PIPERACILLIN/TAZOB 3.375 GM 3.375 GM in DEXTROSE 5%-WATER - 50 ML IVPB SCH ×3 (01:08→18:21)
[2017-04-14] MEDS: GABAPENTIN 300 MG CAPSULE (FP) PO SCH ×3 (06:10→22:30)
[2017-04-14] MEDS: LEVOTHYROXINE NA 25 MCG TABLET (FP) PO SCH (06:10)
[2017-04-14 06:37] LABS: HEP B SURFACE AB Non Reactive (.)
[2017-04-14 08:28] LABS: BASOPHIL 0.5 % (0-2.0); EOSINOPHIL 5.1 % (0-4.5); MCH 30.8 pg (25.7-33.7); MEAN CELL VOLUME 93.3 fl (80-96); MEAN PLT VOLUME 7.8 fl (7.5-11.1); NEUTROPHILS 61.7 % (42.8-82.8); PLATELET COUNT 189 K/MM3 (134-434); RDW 14.2 % (11.6-15.6); WHITE BLOOD COUNT 5.1 K/mm3 (4.0-10.0)
[2017-04-14 08:53] LABS: ALBUMIN 2.9 g/dl (3.4-5.0); ANION GAP 8 (8-16); CALCIUM 8.1 mg/dL (8.5-10.1); CO2 29 mmol/L (21-32); GLUCOSE,RANDOM 88 mg/dL (74-106)
[2017-04-14 08:58] LABS: ALK PHOS 114 U/L (45-117); BILIRUBIN,TOTAL 0.5 mg/dL (0.2-1.0); CREATININE 1.4 mg/dL (0.55-1.02); SGOT/AST 15 U/L (15-37); SGPT/ALT 19 U/L (12-78); TOT PROT 5.6 g/dl (6.4-8.2)
[2017-04-14] MEDS: SODIUM CHLORIDE 1,000 ML IV SCH ×2 (09:02→16:44)
--- NOTE | 2017-04-14 09:43 | ED.PROV ---
Physicial Exam I saw and examined the patient. - Vital Signs Last Vital Signs Temp Pulse Resp BP Pulse Ox 98.2 F 73 20 105/69 96 04/14/17 06:00 04/14/17 06:00 04/13/17 22:00 04/14/17 06:00 04/13/17 21:00 - Physical Exam Reason for Response: 04/14/17 09:40 Nosebleed, Right Nostril, Ongoing..... was called to insert nasal baloon. Could not see where the bleeding was coming from.... the was blood in the posterior pharynx and coming out of the right nostril..... 7.5 ap baloon was placed without any difficulty at all and 3 cc of air was placed in the balloon with effective hemostasis. Dr. Wren notified of procedure (covering for Dr. Rogers).
--- NOTE | 2017-04-14 10:01 | PN ---
Physical Exam: SUBJECTIVE: Patient seen and examined at bedside. Able to relate medical history. Interacted with sister and friend. OBJECTIVE: Vital Signs Period Temp Pulse Resp BP Sys/Sloan Pulse Ox Last 24 Hr 98.2 F-99.0 F 73-82 18-20 105-108/68-71 94-96 GENERAL: The patient is awake, alert, and fully oriented, in no acute distress. At times during conversation, says she becomes sleepy and closes her eyes, then re-engages back in conversation. HEAD: Normal with no signs of trauma. EYES: PERRL, extraocular movements intact, sclera anicteric, conjunctiva clear. No ptosis. LUNGS: Diminished breath sounds left base. HEART: Regular rate and rhythm, S1, S2 without murmur, rub or gallop. ABDOMEN: Soft, nondistended, normoactive bowel sounds; mild LUQ tenderness EXTREMITIES: 2+ pulses, warm, well-perfused, no edema. NEUROLOGICAL: Cranial nerves II through XII grossly intact. Normal speech, gait not observed. PSYCH: Normal mood, normal affect. Laboratory Results - last 24 hr 04/13/17 04/14/17 04/14/17 07:30 06:00 06:00 WBC 5.1 RBC 3.11 L Hgb 9.6 L Hct 29.0 L MCV 93.3 MCH 30.8 MCHC 33.0 RDW 14.2 Plt Count 189 MPV 7.8 Neutrophils % 61.7 Lymphocytes % 25.4 D Monocytes % 7.3 Eosinophils % 5.1 H Basophils % 0.5 Sodium 146 H Potassium 3.5 Chloride 109 H Carbon Dioxide 29 Anion Gap 8 BUN 10 D Creatinine 1.4 H Creat Clearance w eGFR 38.49 Random Glucose 88 Calcium 8.1 L Total Bilirubin 0.5 D AST 15 ALT 19 Alkaline Phosphatase 114 Total Protein 5.6 L Albumin 2.9 L Hepatitis A Ab Total Negative Hep Bs Antigen Negative Hep Bs Antibody Non reactive Hep B Core Total Ab Negative Hepatitis C Antibody <0.1 Active Medications Generic Name Dose Route Start Last Admin Trade Name Freq PRN Reason Stop Dose Admin Aspirin 81 mg 04/12/17 22:00 04/13/17 21:17 Ecotrin - PO 81 mg BID MARILIN Administration Atorvastatin Calcium 20 mg 04/12/17 22:00 04/13/17 21:17 Lipitor - PO 20 mg HS MARILIN Administration Fluticasone Propionate 2 spray 04/13/17 10:00 04/13/17 14:03 Flonase - NS 2 sprays DAILY MARILIN Administration Gabapentin 300 mg 04/13/17 14:00 04/14/17 06:10 Neurontin - PO 300 mg TID MARILIN Administration Sodium Chloride 1,000 mls @ 75 mls/hr 04/12/17 15:45 04/14/17 09:02 Normal Saline - IV 75 mls/hr ASDIR MARILIN Administration Piperacillin Sod/Tazobactam 50 mls @ 100 mls/hr 04/13/17 02:00 04/14/17 01:08 Sod 3.375 gm/ Dextrose IVPB 100 mls/hr Q8H-IV MARILIN Administration Protocol Levothyroxine Sodium 25 mcg 04/13/17 07:00 04/14/17 06:10 Synthroid - PO 25 mcg DAILY@0700 MARILIN Administration Loratadine 10 mg 04/13/17 10:00 04/13/17 09:56 Claritin - PO 10 mg DAILY MARILIN Administration Metoprolol Tartrate 25 mg 04/12/17 22:00 04/13/17 21:16 Lopressor - PO 25 mg BID MARILIN Administration Mometasone Furoate 1 puff 04/13/17 10:00 04/13/17 10:32 Asmanex 220mcg - IH 220 mcg DAILY MARILIN Administration Montelukast Sodium 10 mg 04/12/17 22:00 04/13/17 21:17 Singulair - PO 10 mg HS MARILIN Administration Pantoprazole Sodium 40 mg 04/13/17 10:00 04/13/17 09:57 Protonix - PO 40 mg DAILY MARILIN Administration Paroxetine HCl 20 mg/ 30 mg 04/13/17 10:00 04/13/17 10:27 Paroxetine HCl 10 mg PO 30 mg DAILY MARILIN Administration Sucralfate 1 gm 04/12/17 15:33 Carafate - PO DAILY PRN stomach pain Tiotropium Manning 1 puff 04/13/17 14:30 04/13/17 15:37 Spiriva - IH 1 puff DAILY MARILIN Administration ASSESSMENT/PLAN 61 year-old female with a PMH of aneurysm repair with coils, small cell lung cancer Stage III s/p RML lobectomy and currently on chemotherapy (last tx 2016), h/o pulmonary embolism, recent hiatal hernia repair (2-3 months), admitted with 3 days of falls, weakness, and 1 day of chest pain and SOB. Community acquired pneumonia Left pleural effusion --04/12 and 04/14 CT: extensive LLL consolidation and moderate size left pleural effusion --discussed with Dr. Lion, he will discuss possible aspiration with IR tomorrow --continue Zosyn (day #2) Hypoxemic respiratory failure Chest pain r/o PE --CTA negative for PE --due egfr of 45, hydrated with NS 75cc x12 hrs before CTA and continue hydration following CTA x12hr --renal following Epistaxis --mild nosebleed while on full dose lovenox --nasal packing in place --full a/c stopped since CTA neg for PE Small cell lung cancer Stage III --follows with oncologist in [place], Dr.Kenneth Lomeli [phone] --PET scan done at [facility] 04/05/2017 --follow up with oncologist in [place] Aneurysm s/p repair with coils --coils are MRI compatable (card in chart) Frequent falls Somnolence --patient on valium, gabapentin, hydromorphone, meclizine, cetirizine at home --falls could be secondary to polypharmacy; ultram PRN for pain --MRI brain pending to r/o brain mets Hypertension --continue metoprolol Hypothyroidism --continue levothyroxine DVT prophylaxis: subq lovenox, oob, ambulation Visit type - Emergency Visit Emergency Visit: Yes ED Registration Date: 04/12/17 Care time: The patient presented to the Emergency Department on the above date and was hospitalized for further evaluation of their emergent condition. - New Patient This patient is new to me today: Yes Date on this admission: 04/14/17 - Critical Care Critical Care patient: No
--- NOTE | 2017-04-14 10:13 | PN ---
Progress Note (short form) - Note Progress Note: Patient is a 61 y.o. female with a PMH SCC (R lung, Stage 3A, s/p chemotherapy + R middle lobectomy), recent (w/in last 2-3 months) hiatal hernia repair as well as brain aneursym admitted for AMS/PNA/UTI. Pt seen and examined at the bedside. She is awake and alert , states that has dx as lung cancer last year , and received chemo. She c/o joint pain and is on gabapentin for RA. She denies any headache, weakness or numbness, no h/o stroke , [place] etc. F/U: Pt was started on Levonax full dose concerning PE , given the h/o PE in the past and respiratory distress however she developed nose bleed.She denies any headache, visual changes , weakness, numbness. Level Of Consciousness: Yes: Oriented to Person, Oriented to Place, Oriented to Time Eyes: Yes: PERRLA Speech: WNL Cranial Nerves II-XII Intact: Yes Gag: Present DTR's: 1+ Left Bicep, 1+ Right Bicep, 1+ Left Tricep, 1+ Right Tricep, 1+ Left Brachioradialis, 1+ Right Brachioradialis, 1+ Left Achilles, 1+ Right Achilles Response to light touch: Normal Response to pain prick: Normal Coordination: Normal: Finger to Nose Motor Strength: Moves all exts , no focal weakness Gait: Other (Deferred ) A/P: AMS and multiple fall due to encephalopathy , inf/ met ; ? pneumonia , UTI in the setting of lung cancer; h/o brain aneurysm s/p coiling. MS is improving ;need to exclude brain mets. AC on hold for nose bleed f/u w CTA chest to exclude PE Will verify w radiology regarding compatibility w MRI neurocheck q 4 Health maintenance per primary team. Thank you. HOUTSON Webster MD , Problem List - Problems (1) Encephalopathy Code(s): G93.40 - ENCEPHALOPATHY, UNSPECIFIED (2) Lung cancer Code(s): C34.90 - MALIGNANT NEOPLASM OF UNSP PART OF UNSP BRONCHUS OR LUNG (3) SCC (squamous cell carcinoma of lung) Code(s): C34.90 - MALIGNANT NEOPLASM OF UNSP PART OF UNSP BRONCHUS OR LUNG (4) UTI (urinary tract infection) Code(s): N39.0 - URINARY TRACT INFECTION, SITE NOT SPECIFIED (5) TITO (acute kidney injury) Code(s): N17.9 - ACUTE KIDNEY FAILURE, UNSPECIFIED
--- NOTE | 2017-04-14 11:27 | CON.NEP ---
Consult Consult Specialty:: nephrology Reason for Consultation:: ckd - History of Present Illness History of Present Illness: 61 y.o. female with a PMH SCC (R lung, Stage 3A, s/p chemotherapy + R middle lobectomy), recent (w/in last 2-3 months) hiatal hernia repair as well as brain aneursym admitted for AMS/PNA/UTI. She needs to have PE ruled out given dyspnea and h/o PE in past. She was started on lovenox and started having epistaxis. Needs a CTA to guide therapy. Has a history of urinary retention and has had a vaca for at least three weeks. Her memory is poor. - History Source History Provided By: Patient, Medical Record - Past Medical History Pulmonary: Yes: Cancer, Pulmonary Embolus Gastrointestinal: Yes: Hiatal Hernia ...: No - Past Surgical History Past Surgical History: Yes: Hernia Repair - Alcohol/Substance Use Hx Alcohol Use: No - Smoking History Smoking history: Never smoked Have you smoked in the past 12 months: No - Social History ADL: Family Assistance Home Medications - Allergies Allergies/Adverse Reactions: Allergies Allergy/AdvReac Type Severity Reaction Status Date / Time codeine Allergy Verified 04/12/17 09:05 ethyl alcohol Allergy Verified 04/12/17 09:05 lorazepam [From Ativan] Allergy Verified 04/12/17 09:05 meperidine HCl [From Demerol] Allergy Verified 04/12/17 09:05 nylon Allergy Verified 04/12/17 09:05 peanut Allergy Verified 04/12/17 09:05 sulfamethoxazole Allergy Verified 04/12/17 09:05 [From Bactrim] trimethoprim [From Bactrim] Allergy Verified 04/12/17 09:05 wool Allergy Verified 04/12/17 09:05 - Home Medications Home Medications: Ambulatory Orders Amitriptyline HCl [Elavil -] 50 mg PO DAILY 04/12/17 Aspirin [Aspirin EC] 81 mg PO BID 04/12/17 Atorvastatin Ca [Lipitor] 20 mg PO HS 04/12/17 Cetirizine HCl [Zyrtec -] 10 mg PO DAILY 04/12/17 Diazepam [Valium] 10 mg PO BID 04/12/17 Dicyclomine HCl [Bentyl] 10 mg PO TID 04/12/17 Fluticasone Prop 0.05% Nasal [Flonase -] 2 spray NS DAILY 04/12/17 Gabapentin 800 mg PO TID 04/12/17 Hydrochlorothiazide [Hctz -] 12.5 mg PO DAILY 04/12/17 Hydromorphone [Dilaudid -] 4 mg PO Q4H 04/12/17 Levothyroxine [Synthroid -] 25 mcg PO DAILY 04/12/17 Lidocaine 1 each TP DAILY PRN 04/12/17 Meclizine HCl [Antivert -] 12.5 mg PO TID PRN 04/12/17 Metoprolol Tartrate 25 mg PO BID 04/12/17 Mometasone Furoate [Asmanex 220Mcg -] 1 inh IH DAILY 04/12/17 Montelukast Na [Singulair -] 10 mg PO HS 04/12/17 Pantoprazole Sodium [Protonix -] 40 mg PO DAILY 04/12/17 Paroxetine HCl [Paxil] 30 mg PO DAILY 04/12/17 Sucralfate [Carafate -] 1 gm PO DAILY PRN 04/12/17 Review of Systems - Review of Systems Constitutional: reports: Malaise Eyes: reports: No Symptoms HENT: reports: Difficult Swallowing Neck: reports: No Symptoms Cardiovascular: reports: No Symptoms Respiratory: reports: SOB Gastrointestinal: reports: No Symptoms Genitourinary: reports: Other (has vaca) Breasts: reports: No Symptoms Reported Musculoskeletal: reports: No Symptoms Integumentary: reports: No Symptoms Neurological: reports: No Symptoms Endocrine: reports: No Symptoms Hematology/Lymphatic: reports: No Symptoms Psychiatric: reports: No Symptoms Nephrology Consult - Height Height: 5 ft 4 in - Weight Weight: 199 lb - BMI Body Mass Index (BMI): 34.1 - Lab Results CBC,BMP: CBC, BMP 04/14/17 06:00 04/14/17 06:00 Anion Gap: Anion Gap Anion Gap 8 (8-16) 04/14/17 06:00 - Imaging Chest X-ray: Report Reviewed Cat Scan: Report Reviewed (no pe, liver lesion) - Physical Examination Vital Signs: Vital Signs Temperature 98.2 F 04/14/17 06:00 Pulse Rate 73 04/14/17 06:00 Respiratory Rate 20 04/13/17 22:00 Blood Pressure 105/69 04/14/17 06:00 O2 Sat by Pulse Oximetry (%) 96 04/13/17 21:00 Constitutional: Yes: Well Nourished, Calm, Mild Distress Eyes: Yes: Conjunctiva Clear, EOM Intact HENT: Yes: Atraumatic, Normocephalic Neck: Yes: Supple, Trachea Midline Cardiovascular: Yes: Regular Rate and Rhythm Respiratory: Yes: Regular, Diminished Gastrointestinal: Yes: Normal Bowel Sounds Renal/: Yes: WNL, [place] Present Musculoskeletal: Yes: WNL Extremities: Yes: WNL Edema: No Wound/Incision: Yes: Clean/Dry Neurological: Yes: Alert, Oriented Psychiatric: Yes: Alert, Oriented Assessment/Plan IMPRESSION non proteinuric ckd h/o pe dyspnea r/o PE- pt needs cta despite renal insufficiency. 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
--- NOTE | 2017-04-14 11:30 | PN ---
Progress Note, Physician History of Present Illness: pulmonary alert,-resp distress. chest cta - for pe - Current Medication List Current Medications: Active Medications Aspirin (Ecotrin -) 81 mg PO BID [facility] Last Admin: 04/13/17 21:17 Dose: 81 mg Atorvastatin Calcium (Lipitor -) 20 mg PO HS [facility] Last Admin: 04/13/17 21:17 Dose: 20 mg Fluticasone Propionate (Flonase -) 2 spray NS DAILY [facility] Last Admin: 04/13/17 14:03 Dose: 2 sprays Gabapentin (Neurontin -) 300 mg PO TID [facility] Last Admin: 04/14/17 06:10 Dose: 300 mg Sodium Chloride (Normal Saline -) 1,000 mls @ 75 mls/hr IV ASDIR [facility] Last Admin: 04/14/17 09:02 Dose: 75 mls/hr Piperacillin Sod/Tazobactam (Sod 3.375 gm/ Dextrose) 50 mls @ 100 mls/hr IVPB Q8H-IV MARILIN PRN Reason: Protocol Last Admin: 04/14/17 01:08 Dose: 100 mls/hr Levothyroxine Sodium (Synthroid -) 25 mcg PO DAILY@0700 [facility] Last Admin: 04/14/17 06:10 Dose: 25 mcg Loratadine (Claritin -) 10 mg PO DAILY [facility] Last Admin: 04/13/17 09:56 Dose: 10 mg Metoprolol Tartrate (Lopressor -) 25 mg PO BID [facility] Last Admin: 04/13/17 21:16 Dose: 25 mg Mometasone Furoate (Asmanex 220mcg -) 1 puff IH DAILY [facility] Last Admin: 04/13/17 10:32 Dose: 220 mcg Montelukast Sodium (Singulair -) 10 mg PO HS [facility] Last Admin: 04/13/17 21:17 Dose: 10 mg Pantoprazole Sodium (Protonix -) 40 mg PO DAILY [facility] Last Admin: 04/13/17 09:57 Dose: 40 mg Paroxetine HCl 20 mg/ (Paroxetine HCl 10 mg) 30 mg PO DAILY [facility] Last Admin: 04/13/17 10:27 Dose: 30 mg Sucralfate (Carafate -) 1 gm PO DAILY PRN PRN Reason: stomach pain Tiotropium [place] (Spiriva -) 1 puff IH DAILY [facility] Last Admin: 04/13/17 15:37 Dose: 1 puff - Objective Vital Signs: Vital Signs Temperature 98.2 F 04/14/17 06:00 Pulse Rate 73 04/14/17 06:00 Respiratory Rate 20 04/13/17 22:00 Blood Pressure 105/69 04/14/17 06:00 O2 Sat by Pulse Oximetry (%) 96 04/13/17 21:00 Constitutional: Yes: Well Nourished, Calm Eyes: Yes: WNL HENT: Yes: WNL Neck: Yes: WNL Cardiovascular: Yes: Regular Rate and Rhythm, S1, S2 Respiratory: Yes: Diminished (bibasilar crackles) Gastrointestinal: Yes: Normal Bowel Sounds, Soft Extremities: Yes: WNL Edema: No Labs: CBC, BMP 04/14/17 06:00 04/14/17 06:00 INR, PTT INR 1.13 (0.82-1.09) 04/13/17 07:30 Problem List - Problems (1) TITO (acute kidney injury) Code(s): N17.9 - ACUTE KIDNEY FAILURE, UNSPECIFIED (2) Liver mass Code(s): R16.0 - HEPATOMEGALY, NOT ELSEWHERE CLASSIFIED (3) Lung cancer Code(s): C34.90 - MALIGNANT NEOPLASM OF UNSP PART OF UNSP BRONCHUS OR LUNG (4) SCC (squamous cell carcinoma of lung) Code(s): C34.90 - MALIGNANT NEOPLASM OF UNSP PART OF UNSP BRONCHUS OR LUNG (5) Small cell lung cancer in adult Code(s): C34.90 - MALIGNANT NEOPLASM OF UNSP PART OF UNSP BRONCHUS OR LUNG (6) Acute hypoxemic respiratory failure Code(s): J96.01 - ACUTE RESPIRATORY FAILURE WITH HYPOXIA (7) Chest pain Code(s): R07.9 - CHEST PAIN, UNSPECIFIED (8) Pneumonia Code(s): J18.9 - PNEUMONIA, UNSPECIFIED ORGANISM Qualifiers: Pneumonia type: aspiration pneumonia Assessment/Plan IMP ACUTE HYPOXEMIC RESPIRATORY FAILURE ,ATELECTASIS BILATERAL CONSOLIDATIONS ?PNEUMONIA,?ATELECTASIS LUNG CA SMALL CELL S/P RML LOBECTOMY,CHEMO S/P LEFT THORACOTOMY SECONDARY TO HIATAL HERNIA REPAIR CHEST PAIN LIVER MASS ?MET HTN PLEURAL EFFUSION PLAN O2 ANTIBIOTICS PER ID INHALED BRONCHODILATORS INCENTIVE SPIROMETER THORACENTESIS IN AM DR WETZEL Problem List - Problems (1) TITO (acute kidney injury) Code(s): N17.9 - ACUTE KIDNEY FAILURE, UNSPECIFIED (2) Liver mass Code(s): R16.0 - HEPATOMEGALY, NOT ELSEWHERE CLASSIFIED (3) Lung cancer Code(s): C34.90 - MALIGNANT NEOPLASM OF UNSP PART OF UNSP BRONCHUS OR LUNG (4) SCC (squamous cell carcinoma of lung) Code(s): C34.90 - MALIGNANT NEOPLASM OF UNSP PART OF UNSP BRONCHUS OR LUNG (5) Small cell lung cancer in adult Code(s): C34.90 - MALIGNANT NEOPLASM OF UNSP PART OF UNSP BRONCHUS OR LUNG (6) Acute hypoxemic respiratory failure Code(s): J96.01 - ACUTE RESPIRATORY FAILURE WITH HYPOXIA (7) Chest pain Code(s): R07.9 - CHEST PAIN, UNSPECIFIED (8) Pneumonia Code(s): J18.9 - PNEUMONIA, UNSPECIFIED ORGANISM Qualifiers: Pneumonia type: aspiration pneumonia
[2017-04-14] MEDS ORDERED: PT OWN MED DRAWER 7, Y5N ONE ×2 (12:13→12:26)
[2017-04-14] MEDS: METOPROLOL TARTRATE 25 MG TABLET (FP) PO SCH ×2 (12:20→22:30)
[2017-04-14] MEDS: FLUTICASONE PROP 0.05% 16 GM NASAL SPRAY NS SCH (12:21)
[2017-04-14] MEDS: LORATADINE 10 MG TABLET PO SCH (12:21)
[2017-04-14] MEDS: TIOTROPIUM BROMIDE 18 MCG/INH (DEVICE W/ 5 CAPSULES) IH SCH (12:21)
[2017-04-14] MEDS: ASPIRIN COATED 81 MG TABLET.EC PO SCH ×2 (12:21→22:30)
[2017-04-14] MEDS: PANTOPRAZOLE 40 MG TABLET (FP) PO SCH (12:21)
[2017-04-14] MEDS: PAROXETINE HCL 20 MG, PAROXETINE HCL 10 MG PO SCH (12:26)
[2017-04-14] MEDS: MOMETASONE FUROATE 220 MCG/IH INHALER IH SCH (12:27)
--- NOTE | 2017-04-14 14:46 | PN ---
Progress Note, Physician History of Present Illness: patient stable no new issues patient has nose bleed now the nose is packed - Current Medication List Current Medications: Active Medications Aspirin (Ecotrin -) 81 mg PO BID [facility] Last Admin: 04/14/17 12:21 Dose: Not Given Atorvastatin Calcium (Lipitor -) 20 mg PO HS [facility] Last Admin: 04/13/17 21:17 Dose: 20 mg Fluticasone Propionate (Flonase -) 2 spray NS DAILY [facility] Last Admin: 04/14/17 12:21 Dose: Not Given Gabapentin (Neurontin -) 300 mg PO TID [facility] Last Admin: 04/14/17 06:10 Dose: 300 mg Sodium Chloride (Normal Saline -) 1,000 mls @ 75 mls/hr IV ASDIR [facility] Last Admin: 04/14/17 09:02 Dose: 75 mls/hr Piperacillin Sod/Tazobactam (Sod 3.375 gm/ Dextrose) 50 mls @ 100 mls/hr IVPB Q8H-IV MARILIN PRN Reason: Protocol Last Admin: 04/14/17 12:20 Dose: 100 mls/hr Levothyroxine Sodium (Synthroid -) 25 mcg PO DAILY@0700 [facility] Last Admin: 04/14/17 06:10 Dose: 25 mcg Loratadine (Claritin -) 10 mg PO DAILY [facility] Last Admin: 04/14/17 12:21 Dose: 10 mg Metoprolol Tartrate (Lopressor -) 25 mg PO BID [facility] Last Admin: 04/14/17 12:20 Dose: 25 mg Mometasone Furoate (Asmanex 220mcg -) 1 puff IH DAILY [facility] Last Admin: 04/14/17 12:27 Dose: 1 puff Montelukast Sodium (Singulair -) 10 mg PO HS [facility] Last Admin: 04/13/17 21:17 Dose: 10 mg Pantoprazole Sodium (Protonix -) 40 mg PO DAILY [facility] Last Admin: 04/14/17 12:21 Dose: 40 mg Paroxetine HCl 20 mg/ (Paroxetine HCl 10 mg) 30 mg PO DAILY [facility] Last Admin: 04/14/17 12:26 Dose: 30 mg Sucralfate (Carafate -) 1 gm PO DAILY PRN PRN Reason: stomach pain Tiotropium [place] (Spiriva -) 1 puff IH DAILY [facility] Last Admin: 04/14/17 12:21 Dose: 1 puff Tramadol HCl (Ultram -) 50 mg PO Q6H PRN PRN Reason: PAIN - Objective Vital Signs: Vital Signs Temperature 98.2 F 04/14/17 06:00 Pulse Rate 73 04/14/17 06:00 Respiratory Rate 20 04/13/17 22:00 Blood Pressure 105/69 04/14/17 06:00 O2 Sat by Pulse Oximetry (%) 96 04/13/17 21:00 Constitutional: Yes: No Distress, Calm Cardiovascular: Yes: Regular Rate and Rhythm Respiratory: Yes: Regular, CTA Bilaterally Gastrointestinal: Yes: Normal Bowel Sounds, Soft Genitourinary: Yes: [place] Present Musculoskeletal: Yes: WNL Extremities: Yes: WNL Neurological: Yes: Alert, Oriented Psychiatric: Yes: Alert, Oriented Labs: CBC, BMP 04/14/17 06:00 04/14/17 06:00 INR, PTT INR 1.13 (0.82-1.09) 04/13/17 07:30 Assessment/Plan Problem List - Problems (1) Encephalopathy Code(s): G93.40 - ENCEPHALOPATHY, UNSPECIFIED (2) Lung cancer Code(s): C34.90 - MALIGNANT NEOPLASM OF UNSP PART OF UNSP BRONCHUS OR LUNG (3) SCC (squamous cell carcinoma of lung) Code(s): C34.90 - MALIGNANT NEOPLASM OF UNSP PART OF UNSP BRONCHUS OR LUNG (4) UTI (urinary tract infection) Code(s): N39.0 - URINARY TRACT INFECTION, SITE NOT SPECIFIED (5) TITO (acute kidney injury) Code(s): N17.9 - ACUTE KIDNEY FAILURE, UNSPECIFIED pna uti plan continue abx nutrition rest continue as per primary onco and pul on case
[2017-04-14] MEDS: ATORVASTATIN CA 20 MG TABLET (FP) PO SCH (22:30)
[2017-04-14] MEDS: MONTELUKAST NA 10 MG TABLET PO SCH (22:30)
[2017-04-15] MEDS ORDERED: DEXTROSE 5%-WATER - 50 ML IVPB ONE ×3 (00:55→18:19)
[2017-04-15] MEDS ORDERED: PIPERACILLIN/TAZOBACTAM 3.375 GM VIAL IVPB ONE ×3 (00:55→18:18)
[2017-04-15] MEDS: PIPERACILLIN/TAZOB 3.375 GM 3.375 GM in DEXTROSE 5%-WATER - 50 ML IVPB SCH ×3 (01:13→18:21)
[2017-04-15] MEDS: SODIUM CHLORIDE 1,000 ML IV SCH ×3 (02:05→22:41)
[2017-04-15] MEDS: GABAPENTIN 300 MG CAPSULE (FP) PO SCH ×4 (06:02→21:40)
[2017-04-15] MEDS ORDERED: PT OWN MED DRAWER 7, Y5N ONE ×5 (06:06→21:30)
[2017-04-15] MEDS: LEVOTHYROXINE NA 25 MCG TABLET (FP) PO SCH (06:10)
[2017-04-15 07:57] LABS: BASOPHIL 0.5 % (0-2.0); EOSINOPHIL 4.6 % (0-4.5); MCH 31.2 pg (25.7-33.7); MCHC 33.3 g/dl (32.0-36.0); MEAN CELL VOLUME 93.9 fl (80-96); MEAN PLT VOLUME 7.5 fl (7.5-11.1); NEUTROPHILS 61.1 % (42.8-82.8); PLATELET COUNT 226 K/MM3 (134-434); RDW 14.3 % (11.6-15.6); WHITE BLOOD COUNT 5.8 K/mm3 (4.0-10.0)
[2017-04-15 08:32] LABS: ALBUMIN 3.4 g/dl (3.4-5.0); ALK PHOS 125 U/L (45-117); ANION GAP 11 (8-16); BILIRUBIN,TOTAL 0.5 mg/dL (0.2-1.0); CALCIUM 8.7 mg/dL (8.5-10.1); CO2 25 mmol/L (21-32); CREATININE 1.3 mg/dL (0.55-1.02); GLUCOSE,RANDOM 93 mg/dL (74-106); MAGNESIUM 2.1 mg/dL (1.8-2.4); SGOT/AST 16 U/L (15-37); SGPT/ALT 20 U/L (12-78); TOT PROT 6.7 g/dl (6.4-8.2)
--- NOTE | 2017-04-15 09:07 | PN ---
Progress Note (short form) - Note Progress Note: 61 y.o. female with a PMH SCC (R lung, Stage 3A, s/p chemotherapy + R middle lobectomy), recent (w/in last 2-3 months) hiatal hernia repair as well as brain aneursym admitted for AMS/PNA/UTI. Pt seen and examined at the bedside. She is awake and alert , states that has dx as lung cancer last year , and received chemo. She c/o joint pain and is on gabapentin for RA. She denies any headache, weakness or numbness, no h/o stroke , SD etc. Pt was started on Levonax full dose concerning PE , given the h/o PE in the past and respiratory distress however she developed nose bleed. F/U: MS much improved; back to baseline supposed to get thoracentisis today MRI BR-P CTA : no PE, liver lesion, L Pleural effusion she states she gets occasional periods of hand weakness. Vital Signs Temperature 98.0 F 04/15/17 05:00 Pulse Rate 69 04/15/17 05:00 Respiratory Rate 20 04/15/17 05:00 Blood Pressure 120/71 04/15/17 05:00 O2 Sat by Pulse Oximetry (%) 98 04/14/17 21:00 CBCD WBC 5.8 K/mm3 (4.0-10.0) 04/15/17 07:05 RBC 3.45 M/mm3 (3.60-5.2) L 04/15/17 07:05 Hgb 10.8 GM/dL (10.7-15.3) D 04/15/17 07:05 Hct 32.4 % (32.4-45.2) 04/15/17 07:05 MCV 93.9 fl (80-96) 04/15/17 07:05 MCHC 33.3 g/dl (32.0-36.0) 04/15/17 07:05 RDW 14.3 % (11.6-15.6) 04/15/17 07:05 Plt Count 226 K/MM3 (134-434) 04/15/17 07:05 MPV 7.5 fl (7.5-11.1) 04/15/17 07:05 CMP Sodium 144 mmol/L (136-145) 04/15/17 07:05 Potassium 3.4 mmol/L (3.5-5.1) L 04/15/17 07:05 Chloride 108 mmol/L (98-107) H 04/15/17 07:05 Carbon Dioxide 25 mmol/L (21-32) 04/15/17 07:05 Anion Gap 11 (8-16) 04/15/17 07:05 BUN 8 mg/dL (7-18) 04/15/17 07:05 Creatinine 1.3 mg/dL (0.55-1.02) H 04/15/17 07:05 Creat Clearance w eGFR 41.92 (>60) 04/15/17 07:05 Calcium 8.7 mg/dL (8.5-10.1) 04/15/17 07:05 Total Bilirubin 0.5 mg/dL (0.2-1.0) 04/15/17 07:05 AST 16 U/L (15-37) 04/15/17 07:05 ALT 20 U/L (12-78) 04/15/17 07:05 Alkaline Phosphatase 125 U/L (45-117) H 04/15/17 07:05 Total Protein 6.7 g/dl (6.4-8.2) 04/15/17 07:05 Albumin 3.4 g/dl (3.4-5.0) 04/15/17 07:05 Level Of Consciousness: Yes: Oriented to Person, Oriented to Place, Oriented to Time Eyes: Yes: PERRLA Speech: WNL Cranial Nerves II-XII Intact: Yes Gag: Present DTR's: 1+ Left Bicep, 1+ Right Bicep, 1+ Left Tricep, 1+ Right Tricep, 1+ Left Brachioradialis, 1+ Right Brachioradialis, 1+ Left Achilles, 1+ Right Achilles Response to light touch: Normal Response to pain prick: Normal Coordination: Normal: Finger to Nose Motor Strength: Moves all exts , no focal weakness Gait: Other (Deferred ) A/P: AMS and multiple fall due to encephalopathy , inf/ metabloic; ? pneumonia , UTI in the setting of lung cancer; h/o brain aneurysm s/p coiling. MS back to baseline, will get MRI brain to ensure no metastatic disaese (told to be compatible) Dr Lopes
[2017-04-15] MEDS ORDERED: ENOXAPARIN NA (PORCINE) 40 MG/0.4 ML DISP.SYRIN SQ SCH (10:00)
[2017-04-15] MEDS: METOPROLOL TARTRATE 25 MG TABLET (FP) PO SCH ×2 (10:31→21:40)
[2017-04-15] MEDS: MOMETASONE FUROATE 220 MCG/IH INHALER IH SCH (10:43)
[2017-04-15] MEDS: TIOTROPIUM BROMIDE 18 MCG/INH (DEVICE W/ 5 CAPSULES) IH SCH (10:43)
[2017-04-15] MEDS: FLUTICASONE PROP 0.05% 16 GM NASAL SPRAY NS SCH (10:44)
[2017-04-15] MEDS: LORATADINE 10 MG TABLET PO SCH ×2 (11:06→15:27)
[2017-04-15] MEDS: PAROXETINE HCL 20 MG, PAROXETINE HCL 10 MG PO SCH ×2 (11:06→16:31)
[2017-04-15] MEDS: PANTOPRAZOLE 40 MG TABLET (FP) PO SCH ×2 (11:06→16:32)
[2017-04-15 13:14] LABS: PLEURAL FLUID SOURCE PLEURAL
[2017-04-15 13:15] LABS: PLEURAL FLUID APPEARANCE HAZY; PLEURAL FLUID COLOR YELLOW
[2017-04-15 13:23] LABS: GLUCOSE,BODY FLUID 97 mg/dl
--- NOTE | 2017-04-15 13:30 | PN ---
Progress Note, Physician History of Present Illness: patient stable no new issues patient had thoracocentesis - Current Medication List Current Medications: Active Medications Aspirin (Ecotrin -) 81 mg PO BID [facility] Last Admin: 04/14/17 22:30 Dose: Not Given Atorvastatin Calcium (Lipitor -) 20 mg PO HS [facility] Last Admin: 04/14/17 22:30 Dose: 20 mg Fluticasone Propionate (Flonase -) 2 spray NS DAILY [facility] Last Admin: 04/15/17 10:44 Dose: 2 sprays Gabapentin (Neurontin -) 300 mg PO TID [facility] Last Admin: 04/15/17 06:02 Dose: Not Given Sodium Chloride (Normal Saline -) 1,000 mls @ 75 mls/hr IV ASDIR [facility] Last Admin: 04/15/17 02:05 Dose: 75 mls/hr Piperacillin Sod/Tazobactam (Sod 3.375 gm/ Dextrose) 50 mls @ 100 mls/hr IVPB Q8H-IV MARILIN PRN Reason: Protocol Last Admin: 04/15/17 10:31 Dose: 100 mls/hr Levothyroxine Sodium (Synthroid -) 25 mcg PO DAILY@0700 [facility] Last Admin: 04/15/17 06:10 Dose: 25 mcg Loratadine (Claritin -) 10 mg PO DAILY [facility] Last Admin: 04/15/17 11:06 Dose: Not Given Metoprolol Tartrate (Lopressor -) 25 mg PO BID [facility] Last Admin: 04/15/17 10:31 Dose: 25 mg Mometasone Furoate (Asmanex 220mcg -) 1 puff IH DAILY [facility] Last Admin: 04/15/17 10:43 Dose: 1 puff Montelukast Sodium (Singulair -) 10 mg PO HS [facility] Last Admin: 04/14/17 22:30 Dose: 10 mg Pantoprazole Sodium (Protonix -) 40 mg PO DAILY [facility] Last Admin: 04/15/17 11:06 Dose: Not Given Paroxetine HCl 20 mg/ (Paroxetine HCl 10 mg) 30 mg PO DAILY [facility] Last Admin: 04/15/17 11:06 Dose: Not Given Sucralfate (Carafate -) 1 gm PO DAILY PRN PRN Reason: stomach pain Tiotropium [place] (Spiriva -) 1 puff IH DAILY [facility] Last Admin: 04/15/17 10:43 Dose: 1 puff Tramadol HCl (Ultram -) 50 mg PO Q6H PRN PRN Reason: PAIN - Objective Vital Signs: Vital Signs Temperature 98.1 F 04/15/17 12:59 Pulse Rate 66 04/15/17 12:59 Respiratory Rate 12 04/15/17 12:59 Blood Pressure 155/87 04/15/17 12:59 O2 Sat by Pulse Oximetry (%) 96 04/15/17 12:57 Constitutional: Yes: No Distress, Calm Cardiovascular: Yes: Regular Rate and Rhythm Respiratory: Yes: Regular, Poor Air Entry Gastrointestinal: Yes: Normal Bowel Sounds, Soft Genitourinary: Yes: [place] Present Musculoskeletal: Yes: WNL Extremities: Yes: WNL Neurological: Yes: Alert, Oriented Psychiatric: Yes: Alert, Oriented Labs: CBC, BMP 04/15/17 07:05 04/15/17 07:05 INR, PTT INR 1.13 (0.82-1.09) 04/13/17 07:30 Assessment/Plan Problem List - Problems (1) Encephalopathy Code(s): G93.40 - ENCEPHALOPATHY, UNSPECIFIED (2) Lung cancer Code(s): C34.90 - MALIGNANT NEOPLASM OF UNSP PART OF UNSP BRONCHUS OR LUNG (3) SCC (squamous cell carcinoma of lung) Code(s): C34.90 - MALIGNANT NEOPLASM OF UNSP PART OF UNSP BRONCHUS OR LUNG (4) UTI (urinary tract infection) Code(s): N39.0 - URINARY TRACT INFECTION, SITE NOT SPECIFIED (5) TITO (acute kidney injury) Code(s): N17.9 - ACUTE KIDNEY FAILURE, UNSPECIFIED pna uti plan continue abx nutrition await for all the reports from pleural tap rest as per primary team
--- NOTE | 2017-04-15 14:25 | PN ---
Progress Note, Physician History of Present Illness: pulmonary alert,nad ,s/p thoracentesis . pleural fluid c/w exudate - Current Medication List Current Medications: Active Medications Aspirin (Ecotrin -) 81 mg PO BID [facility] Last Admin: 04/14/17 22:30 Dose: Not Given Atorvastatin Calcium (Lipitor -) 20 mg PO HS [facility] Last Admin: 04/14/17 22:30 Dose: 20 mg Fluticasone Propionate (Flonase -) 2 spray NS DAILY [facility] Last Admin: 04/15/17 10:44 Dose: 2 sprays Gabapentin (Neurontin -) 300 mg PO TID [facility] Last Admin: 04/15/17 06:02 Dose: Not Given Sodium Chloride (Normal Saline -) 1,000 mls @ 75 mls/hr IV ASDIR [facility] Last Admin: 04/15/17 02:05 Dose: 75 mls/hr Piperacillin Sod/Tazobactam (Sod 3.375 gm/ Dextrose) 50 mls @ 100 mls/hr IVPB Q8H-IV MARILIN PRN Reason: Protocol Last Admin: 04/15/17 10:31 Dose: 100 mls/hr Levothyroxine Sodium (Synthroid -) 25 mcg PO DAILY@0700 [facility] Last Admin: 04/15/17 06:10 Dose: 25 mcg Loratadine (Claritin -) 10 mg PO DAILY [facility] Last Admin: 04/15/17 11:06 Dose: Not Given Metoprolol Tartrate (Lopressor -) 25 mg PO BID [facility] Last Admin: 04/15/17 10:31 Dose: 25 mg Mometasone Furoate (Asmanex 220mcg -) 1 puff IH DAILY [facility] Last Admin: 04/15/17 10:43 Dose: 1 puff Montelukast Sodium (Singulair -) 10 mg PO HS [facility] Last Admin: 04/14/17 22:30 Dose: 10 mg Pantoprazole Sodium (Protonix -) 40 mg PO DAILY [facility] Last Admin: 04/15/17 11:06 Dose: Not Given Paroxetine HCl 20 mg/ (Paroxetine HCl 10 mg) 30 mg PO DAILY [facility] Last Admin: 04/15/17 11:06 Dose: Not Given Sucralfate (Carafate -) 1 gm PO DAILY PRN PRN Reason: stomach pain Tiotropium [place] (Spiriva -) 1 puff IH DAILY [facility] Last Admin: 04/15/17 10:43 Dose: 1 puff Tramadol HCl (Ultram -) 50 mg PO Q6H PRN PRN Reason: PAIN - Objective Vital Signs: Vital Signs Temperature 98.1 F 04/15/17 12:59 Pulse Rate 66 04/15/17 12:59 Respiratory Rate 12 04/15/17 12:59 Blood Pressure 155/87 04/15/17 12:59 O2 Sat by Pulse Oximetry (%) 96 04/15/17 12:57 Constitutional: Yes: Well Nourished, Calm Eyes: Yes: WNL HENT: Yes: WNL Neck: Yes: WNL Cardiovascular: Yes: Regular Rate and Rhythm, S1, S2 Respiratory: Yes: Diminished Gastrointestinal: Yes: Normal Bowel Sounds, Soft Extremities: Yes: WNL Edema: No Labs: CBC, BMP 04/15/17 07:05 04/15/17 07:05 INR, PTT INR 1.13 (0.82-1.09) 04/13/17 07:30 Problem List - Problems (1) TITO (acute kidney injury) Code(s): N17.9 - ACUTE KIDNEY FAILURE, UNSPECIFIED (2) Liver mass Code(s): R16.0 - HEPATOMEGALY, NOT ELSEWHERE CLASSIFIED (3) Lung cancer Code(s): C34.90 - MALIGNANT NEOPLASM OF UNSP PART OF UNSP BRONCHUS OR LUNG (4) SCC (squamous cell carcinoma of lung) Code(s): C34.90 - MALIGNANT NEOPLASM OF UNSP PART OF UNSP BRONCHUS OR LUNG (5) Small cell lung cancer in adult Code(s): C34.90 - MALIGNANT NEOPLASM OF UNSP PART OF UNSP BRONCHUS OR LUNG (6) Acute hypoxemic respiratory failure Code(s): J96.01 - ACUTE RESPIRATORY FAILURE WITH HYPOXIA (7) Chest pain Code(s): R07.9 - CHEST PAIN, UNSPECIFIED (8) Pneumonia Code(s): J18.9 - PNEUMONIA, UNSPECIFIED ORGANISM Qualifiers: Pneumonia type: aspiration pneumonia Assessment/Plan IMP ACUTE HYPOXEMIC RESPIRATORY FAILURE ,ATELECTASIS BILATERAL CONSOLIDATIONS ?PNEUMONIA,?ATELECTASIS LUNG CA SMALL CELL S/P RML LOBECTOMY,CHEMO S/P LEFT THORACOTOMY SECONDARY TO HIATAL HERNIA REPAIR CHEST PAIN LIVER MASS ?MET HTN PLEURAL EFFUSION EXUDATE PLAN O2 ANTIBIOTICS PER ID INHALED BRONCHODILATORS INCENTIVE SPIROMETER CHECK CYTOLOGY ,CULTURES PLEURAL FLUID DR WETZEL Problem List - Problems (1) TITO (acute kidney injury) Code(s): N17.9 - ACUTE KIDNEY FAILURE, UNSPECIFIED (2) Liver mass Code(s): R16.0 - HEPATOMEGALY, NOT ELSEWHERE CLASSIFIED (3) Lung cancer Code(s): C34.90 - MALIGNANT NEOPLASM OF UNSP PART OF UNSP BRONCHUS OR LUNG (4) SCC (squamous cell carcinoma of lung) Code(s): C34.90 - MALIGNANT NEOPLASM OF UNSP PART OF UNSP BRONCHUS OR LUNG (5) Small cell lung cancer in adult Code(s): C34.90 - MALIGNANT NEOPLASM OF UNSP PART OF UNSP BRONCHUS OR LUNG (6) Acute hypoxemic respiratory failure Code(s): J96.01 - ACUTE RESPIRATORY FAILURE WITH HYPOXIA (7) Chest pain Code(s): R07.9 - CHEST PAIN, UNSPECIFIED (8) Pneumonia Code(s): J18.9 - PNEUMONIA, UNSPECIFIED ORGANISM Qualifiers: Pneumonia type: aspiration pneumonia
--- NOTE | 2017-04-15 14:34 | CONS ---
DATE OF CONSULTATION: 04/13/2017 The patient is a 61-year-old white female with a past medical history of bronchogenic carcinoma, small cell type, status post right thoracotomy, right middle lobe lobectomy, recent left thoracotomy for a hiatal hernia repair 3 weeks ago, history of [employer] aneurysm, history of pulmonary embolism approximately a year ago. Time line is difficult to determine as the patient is having difficulty remembering dates. She presented to [facility] on April 12 with complaint of chest pain, stabbing in character, bilaterally, extending around her rib cage. States the pain is nonpleuritic in nature. She also states she has fallen multiple times recently while trying to ambulate. On admission, she underwent a CT of the head which was negative. She had a by Neurology. She also underwent a CT scan of the chest which revealed evidence of bibasilar consolidations, left greater than right, with left pleural effusion. Patient was noted earlier today to be more hypoxic with low O2 saturations requiring increased O2 concentration. The patient has a history of smoking, quit a long time ago. There is no history of occupational exposure to chemicals or fumes. Denies any history of respiratory failure in the past or ventilatory support. PAST MEDICAL HISTORY: Again includes lung cancer, small cell type, status post thoracotomy I believe a year ago, status post chemotherapy for 3 months, history of pulmonary embolism, history of recent hiatal hernia repair, status post left thoracotomy, history of [employer] aneurysm status post coils. Positive hypertension. No diabetes. REVIEW OF SYSTEMS: No orthopnea, positive mild shortness of breath, positive dyspnea on exertion, positive mild weakness, positive chest pain. No cough. Positive sleepiness. CURRENT MEDICATIONS: Asmanex, piperacillin, Lovenox, Neurontin, paroxetine, Lopressor, Lipitor, Flonase, Singulair, Ecotrin, Carafate, Protonix, Synthroid, and Claritin. PHYSICAL EXAMINATION: General: The patient is a well-developed, well-nourished female, awake, in no acute distress. Vital Signs: She is currently afebrile. Blood pressure is 106/64. Respiratory rate is 16. O2 saturation is 94% on 5 L. HEENT: Normocephalic, atraumatic. Neck: Supple. Heart: Regular, S1, S2. Chest: Diminished breath sounds bilaterally. Abdomen: Soft. Bowel sounds are positive. Extremities: No cyanosis or edema. LABORATORY: WBC 5.1, hemoglobin 9.6, hematocrit 29, platelet count 177,000. INR is 1.13. Blood gas: pH 7.41, PCO2 of 47, PO2 of 69, a bicarbonate 29, saturation 93.6 on 3 L nasal cannula. BUN is 13, creatinine 1.3. Chest CT reveals evidence of left lower lobe consolidation, atelectasis, effusion. There is a small right basilar atelectasis. There is no pleural effusion. There is a large right lobe liver lesion. IMPRESSION: 1. Acute hypoxemic respiratory failure multiple factors. One cannot exclude possible pulmonary embolism. Patient at increased risk secondary to recent surgery, hypercoagulable state due to lung cancer. 2. Possible secondary to atelectasis postoperative. 3. Rule out possible pneumonia. 4. Liver mass. PLAN: A CTA of the chest, supplemental O2, inhaled bronchodilators, cautious use of analgesics, incentive spirometer, antibiotics, cultures, follow up chest x-rays. YENNY WETZEL M.D. [id number]
--- NOTE | 2017-04-15 15:00 | PN ---
Progress Note, Physician Chief Complaint: Ms Chopra complains of multiple areas of pain, including the site of the thoracentesis. Denies chest pressure, shortness of breath, nausea/vomiting - Current Medication List Current Medications: Active Medications Aspirin (Ecotrin -) 81 mg PO BID [facility] Last Admin: 04/14/17 22:30 Dose: Not Given Atorvastatin Calcium (Lipitor -) 20 mg PO HS [facility] Last Admin: 04/14/17 22:30 Dose: 20 mg Fluticasone Propionate (Flonase -) 2 spray NS DAILY [facility] Last Admin: 04/15/17 10:44 Dose: 2 sprays Gabapentin (Neurontin -) 300 mg PO TID [facility] Last Admin: 04/15/17 14:58 Dose: Not Given Sodium Chloride (Normal Saline -) 1,000 mls @ 75 mls/hr IV ASDIR [facility] Last Admin: 04/15/17 02:05 Dose: 75 mls/hr Piperacillin Sod/Tazobactam (Sod 3.375 gm/ Dextrose) 50 mls @ 100 mls/hr IVPB Q8H-IV [facility] PRN Reason: Protocol Last Admin: 04/15/17 10:31 Dose: 100 mls/hr Levothyroxine Sodium (Synthroid -) 25 mcg PO DAILY@0700 [facility] Last Admin: 04/15/17 06:10 Dose: 25 mcg Loratadine (Claritin -) 10 mg PO DAILY [facility] Last Admin: 04/15/17 11:06 Dose: Not Given Metoprolol Tartrate (Lopressor -) 25 mg PO BID [facility] Last Admin: 04/15/17 10:31 Dose: 25 mg Mometasone Furoate (Asmanex 220mcg -) 1 puff IH DAILY [facility] Last Admin: 04/15/17 10:43 Dose: 1 puff Montelukast Sodium (Singulair -) 10 mg PO HS [facility] Last Admin: 04/14/17 22:30 Dose: 10 mg Pantoprazole Sodium (Protonix -) 40 mg PO DAILY [facility] Last Admin: 04/15/17 11:06 Dose: Not Given Paroxetine HCl 20 mg/ (Paroxetine HCl 10 mg) 30 mg PO DAILY [facility] Last Admin: 04/15/17 11:06 Dose: Not Given Sucralfate (Carafate -) 1 gm PO DAILY PRN PRN Reason: stomach pain Tiotropium [place] (Spiriva -) 1 puff IH DAILY [facility] Last Admin: 04/15/17 10:43 Dose: 1 puff Tramadol HCl (Ultram -) 50 mg PO Q6H PRN PRN Reason: PAIN - Objective Vital Signs: Vital Signs Temperature 36.7 C 04/15/17 12:59 Pulse Rate 66 04/15/17 12:59 Respiratory Rate 12 04/15/17 12:59 Blood Pressure 155/87 04/15/17 12:59 O2 Sat by Pulse Oximetry (%) 96 04/15/17 12:57 Constitutional: Yes: No Distress, Calm, Obese Cardiovascular: Yes: Regular Rate and Rhythm. No: Gallop, Murmur, Rub Respiratory: Yes: Regular, CTA Bilaterally. No: Rales, Rhonchi, Wheezes Gastrointestinal: Yes: Normal Bowel Sounds, Soft. No: Distention, Tenderness Extremities: Yes: WNL Edema: No Labs: CBC, BMP 04/15/17 07:05 04/15/17 07:05 INR, PTT INR 1.13 (0.82-1.09) 04/13/17 07:30 Problem List - Problems (1) Pneumonia Code(s): J18.9 - PNEUMONIA, UNSPECIFIED ORGANISM Qualifiers: Pneumonia type: aspiration pneumonia (2) Metabolic encephalopathy Code(s): G93.41 - METABOLIC ENCEPHALOPATHY (3) Chest pain Code(s): R07.9 - CHEST PAIN, UNSPECIFIED (4) Small cell lung cancer in adult Code(s): C34.90 - MALIGNANT NEOPLASM OF UNSP PART OF UNSP BRONCHUS OR LUNG (5) Liver mass Code(s): R16.0 - HEPATOMEGALY, NOT ELSEWHERE CLASSIFIED (6) Hypokalemia Code(s): E87.6 - HYPOKALEMIA (7) Fall Code(s): W19.XXXA - UNSPECIFIED FALL, INITIAL ENCOUNTER Assessment/Plan (1) Pneumonia Assessment/Plan: -appreciate ID assistance -s/p thoracentesis with exudate -continue zosyn per ID Code(s): J18.9 - PNEUMONIA, UNSPECIFIED ORGANISM (2) Metabolic encephalopathy Assessment/Plan: -much improved from Saturday -possible baseline -multifactorial -exacerbated by infection and pain medications -however needs MRI to evaluate for possible mets -appreciate neurology assistance Code(s): G93.41 - METABOLIC ENCEPHALOPATHY (3) Chest pain Assessment/Plan: -resolved Code(s): R07.9 - CHEST PAIN, UNSPECIFIED (4) Small cell lung cancer in adult Assessment/Plan: -appreciate oncology assistance -s/p thoracentesis, fluid sent for cytology Code(s): C34.90 - MALIGNANT NEOPLASM OF UNSP PART OF UNSP BRONCHUS OR LUNG (5) Liver mass Assessment/Plan: -will d/w oncology about possible biopsy Code(s): R16.0 - HEPATOMEGALY, NOT ELSEWHERE CLASSIFIED (6) Hypokalemia Assessment/Plan: -resolved Code(s): E87.6 - HYPOKALEMIA (7) Fall Assessment/Plan: -fall risk precautions -PT consulted and following Code(s): W19.XXXA - UNSPECIFIED FALL, INITIAL ENCOUNTER
--- NOTE | 2017-04-15 15:23 | PN ---
Progress Note, Physician History of Present Illness: Pt seen and examined at bedside. She had the thoracocentesis done today. - Current Medication List Current Medications: Active Medications Aspirin (Ecotrin -) 81 mg PO BID [facility] Last Admin: 04/14/17 22:30 Dose: Not Given Atorvastatin Calcium (Lipitor -) 20 mg PO HS [facility] Last Admin: 04/14/17 22:30 Dose: 20 mg Fluticasone Propionate (Flonase -) 2 spray NS DAILY [facility] Last Admin: 04/15/17 10:44 Dose: 2 sprays Gabapentin (Neurontin -) 300 mg PO TID [facility] Last Admin: 04/15/17 06:02 Dose: Not Given Sodium Chloride (Normal Saline -) 1,000 mls @ 75 mls/hr IV ASDIR [facility] Last Admin: 04/15/17 02:05 Dose: 75 mls/hr Piperacillin Sod/Tazobactam (Sod 3.375 gm/ Dextrose) 50 mls @ 100 mls/hr IVPB Q8H-IV [facility] PRN Reason: Protocol Last Admin: 04/15/17 10:31 Dose: 100 mls/hr Levothyroxine Sodium (Synthroid -) 25 mcg PO DAILY@0700 [facility] Last Admin: 04/15/17 06:10 Dose: 25 mcg Loratadine (Claritin -) 10 mg PO DAILY [facility] Last Admin: 04/15/17 11:06 Dose: Not Given Metoprolol Tartrate (Lopressor -) 25 mg PO BID [facility] Last Admin: 04/15/17 10:31 Dose: 25 mg Mometasone Furoate (Asmanex 220mcg -) 1 puff IH DAILY [facility] Last Admin: 04/15/17 10:43 Dose: 1 puff Montelukast Sodium (Singulair -) 10 mg PO HS [facility] Last Admin: 04/14/17 22:30 Dose: 10 mg Pantoprazole Sodium (Protonix -) 40 mg PO DAILY [facility] Last Admin: 04/15/17 11:06 Dose: Not Given Paroxetine HCl 20 mg/ (Paroxetine HCl 10 mg) 30 mg PO DAILY [facility] Last Admin: 04/15/17 11:06 Dose: Not Given Sucralfate (Carafate -) 1 gm PO DAILY PRN PRN Reason: stomach pain Tiotropium [place] (Spiriva -) 1 puff IH DAILY [facility] Last Admin: 04/15/17 10:43 Dose: 1 puff Tramadol HCl (Ultram -) 50 mg PO Q6H PRN PRN Reason: PAIN - Objective Vital Signs: Vital Signs Temperature 98.1 F 04/15/17 12:59 Pulse Rate 66 04/15/17 12:59 Respiratory Rate 12 04/15/17 12:59 Blood Pressure 155/87 04/15/17 12:59 O2 Sat by Pulse Oximetry (%) 96 04/15/17 12:57 Constitutional: Yes: Calm Eyes: Yes: Conjunctiva Clear Cardiovascular: Yes: S1, S2 Respiratory: Yes: CTA Bilaterally Gastrointestinal: Yes: Soft Genitourinary: Yes: WNL Edema: No Neurological: Yes: Oriented Psychiatric: Yes: Oriented Labs: CBC, BMP 04/15/17 07:05 04/15/17 07:05 INR, PTT INR 1.13 (0.82-1.09) 04/13/17 07:30 Laboratory Tests 04/12/17 04/15/17 09:14 07:05 Sodium 144 Potassium 3.4 L Chloride 108 H Carbon Dioxide 25 Anion Gap 11 BUN 8 Creatinine 1.3 H Urine Protein Negative Urine Blood Negative Problem List - Problems (1) Small cell lung cancer in adult Code(s): C34.90 - MALIGNANT NEOPLASM OF UNSP PART OF UNSP BRONCHUS OR LUNG (2) CKD (chronic kidney disease) Code(s): N18.9 - CHRONIC KIDNEY DISEASE, UNSPECIFIED Assessment/Plan Current Medications Generic Name Dose Route Start Last Admin Trade Name Freq PRN Reason Stop Dose Admin Aspirin 81 mg 04/12/17 22:00 04/14/17 22:30 Ecotrin - PO Not Given BID [facility] Atorvastatin Calcium 20 mg 04/12/17 22:00 04/14/17 22:30 Lipitor - PO 20 mg HS [facility] Administration Fluticasone Propionate 2 spray 04/13/17 10:00 04/15/17 10:44 Flonase - NS 2 sprays DAILY [facility] Administration Gabapentin 300 mg 04/13/17 14:00 04/15/17 06:02 Neurontin - PO Not Given TID [facility] Sodium Chloride 1,000 mls @ 75 mls/hr 04/12/17 15:45 04/15/17 02:05 Normal Saline - IV 75 mls/hr ASDIR [facility] Administration Piperacillin Sod/Tazobactam 50 mls @ 100 mls/hr 04/13/17 02:00 04/15/17 10:31 Sod 3.375 gm/ Dextrose IVPB 100 mls/hr Q8H-IV [facility] Administration Protocol Levothyroxine Sodium 25 mcg 04/13/17 07:00 04/15/17 06:10 Synthroid - PO 25 mcg DAILY@0700 [facility] Administration Loratadine 10 mg 04/13/17 10:00 04/15/17 11:06 Claritin - PO Not Given DAILY [facility] Metoprolol Tartrate 25 mg 04/12/17 22:00 04/15/17 10:31 Lopressor - PO 25 mg BID [facility] Administration Mometasone Furoate 1 puff 04/13/17 10:00 04/15/17 10:43 Asmanex 220mcg - IH 1 puff DAILY [facility] Administration Montelukast Sodium 10 mg 04/12/17 22:00 04/14/17 22:30 Singulair - PO 10 mg HS [facility] Administration Pantoprazole Sodium 40 mg 04/13/17 10:00 04/15/17 11:06 Protonix - PO Not Given DAILY [facility] Paroxetine HCl 20 mg/ 30 mg 04/13/17 10:00 04/15/17 11:06 Paroxetine HCl 10 mg PO Not Given DAILY [facility] Sucralfate 1 gm 04/12/17 15:33 Carafate - PO DAILY PRN stomach pain Tiotropium [place] 1 puff 04/13/17 14:30 04/15/17 10:43 Spiriva - IH 1 puff DAILY [facility] Administration Tramadol HCl 50 mg 04/14/17 12:28 Ultram - PO Q6H PRN PAIN Impression 1. CKD 2. r/o PE 3. pleural effusion 4. lung cancer 5. hypothyroidism Plan - repeat bmp in am to check renal function - cont current meds - can stop fluids if tolerating diet - follow up thoracocentesis results - will follow Dr Fung
[2017-04-15 15:40] LABS: PLEURAL FLUID LYMPHOCYTES 34 %; PLEURAL FLUID NEUTROPHIL 7 %
[2017-04-15 15:41] LABS: PLEURAL FLUID MACROPHAGES 47 %
[2017-04-15] MEDS: traMADol HCL 50 MG TABLET PO PRN (18:44)
--- NOTE | 2017-04-15 18:52 | PN ---
Progress Note (short form) - Note Progress Note: Patient seen and examined Last Vital Signs Temp Pulse Resp BP Pulse Ox 98.1 F 67 12 147/71 96 04/15/17 15:35 04/15/17 15:35 04/15/17 12:59 04/15/17 15:35 04/15/17 12:57 Cor: RSR, No murmurs, No gallops Lungs: Clear to P&A Abd: Soft, Normal bowel sounds, No organomegaly Ext:No significant edema Skin: No rashes, Integument intact Abnormal Lab Results 04/15/17 04/15/17 07:05 07:05 RBC 3.45 L Eosinophils % 4.6 H Potassium 3.4 L Chloride 108 H Creatinine 1.3 H Alkaline Phosphatase 125 H Active Medications Generic Name Dose Route Start Last Admin Trade Name Freq PRN Reason Stop Dose Admin Aspirin 81 mg 04/12/17 22:00 04/14/17 22:30 Ecotrin - PO Not Given BID [facility] Atorvastatin Calcium 20 mg 04/12/17 22:00 04/14/17 22:30 Lipitor - PO 20 mg HS [facility] Administration Fluticasone Propionate 2 spray 04/13/17 10:00 04/15/17 10:44 Flonase - NS 2 sprays DAILY [facility] Administration Gabapentin 300 mg 04/13/17 14:00 04/15/17 15:28 Neurontin - PO 300 mg TID [facility] Administration Sodium Chloride 1,000 mls @ 75 mls/hr 04/12/17 15:45 04/15/17 18:30 Normal Saline - IV 75 mls/hr ASDIR [facility] Administration Piperacillin Sod/Tazobactam 50 mls @ 100 mls/hr 04/13/17 02:00 04/15/17 18:21 Sod 3.375 gm/ Dextrose IVPB 100 mls/hr Q8H-IV [facility] Administration Protocol Levothyroxine Sodium 25 mcg 04/13/17 07:00 04/15/17 06:10 Synthroid - PO 25 mcg DAILY@0700 [facility] Administration Loratadine 10 mg 04/13/17 10:00 04/15/17 15:27 Claritin - PO 10 mg DAILY [facility] Administration Metoprolol Tartrate 25 mg 04/12/17 22:00 04/15/17 10:31 Lopressor - PO 25 mg BID [facility] Administration Mometasone Furoate 1 puff 04/13/17 10:00 04/15/17 10:43 Asmanex 220mcg - IH 1 puff DAILY [facility] Administration Montelukast Sodium 10 mg 04/12/17 22:00 04/14/17 22:30 Singulair - PO 10 mg HS [facility] Administration Pantoprazole Sodium 40 mg 04/13/17 10:00 04/15/17 16:32 Protonix - PO 40 mg DAILY [facility] Administration Paroxetine HCl 20 mg/ 30 mg 04/13/17 10:00 04/15/17 16:31 Paroxetine HCl 10 mg PO 30 mg DAILY [facility] Administration Sucralfate 1 gm 04/12/17 15:33 Carafate - PO DAILY PRN stomach pain Tiotropium [place] 1 puff 04/13/17 14:30 04/15/17 10:43 Spiriva - IH 1 puff DAILY [facility] Administration Tramadol HCl 50 mg 04/14/17 12:28 04/15/17 18:44 Ultram - PO 50 mg Q6H PRN Administration PAIN A/P 61 y/o patient with 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 Non contrast imaging with a liver mass, not characterized (hemangioma vs neoplastic), would need contrast imaging study (CT w/ liver protocol ) once kidney fn imporoves further. Had CTA chest on 04/14 --so need to wait 48-72hrs. for repeat contrast load and need to check cr prior. Prior aneurysm repair and has coils - discussed with MRI team --can only have MRI for 15mins. discussed with neurology To check MRI brain without contrast AMS: CTH negative, likely metabolic (sepsis/narcotics) - appreciate input neurology - apparently more alert now than on admission. TITO: IVF - improving. Suspicion of penumonia - empiric antibiotics. s/p thoracentesis--await cytology -PET CT done at [facility] on 04/05/2017, need to follow-up on the results , will obtain more info from outside oncologist (Dr.Kenneth Lomeli in [place] [phone]). discussed with her health care proxy Will follow.
[2017-04-15] MEDS: ATORVASTATIN CA 20 MG TABLET (FP) PO SCH (21:40)
[2017-04-15] MEDS: MONTELUKAST NA 10 MG TABLET PO SCH (21:40)
[2017-04-16] MEDS ORDERED: DEXTROSE 5%-WATER - 50 ML IVPB ONE ×3 (02:34→17:08)
[2017-04-16] MEDS ORDERED: PIPERACILLIN/TAZOBACTAM 3.375 GM VIAL IVPB ONE ×3 (02:34→17:08)
[2017-04-16] MEDS: PIPERACILLIN/TAZOB 3.375 GM 3.375 GM in DEXTROSE 5%-WATER - 50 ML IVPB SCH ×3 (02:41→17:18)
[2017-04-16] MEDS: LEVOTHYROXINE NA 25 MCG TABLET (FP) PO SCH (06:37)
[2017-04-16] MEDS: GABAPENTIN 300 MG CAPSULE (FP) PO SCH ×3 (06:37→21:15)
--- NOTE | 2017-04-16 07:25 | CONSULT ---
Consult Consult Specialty:: pain medicine Referred by:: hospitalist Reason for Consultation:: chest pain - History of Present Illness Chief Complaint: chest pain History of Present Illness: Patient is a 61 y.o. female with a PMH SCC (R lung, Stage 3A, s/p chemotherapy + R middle lobectomy), recent (w/in last 2-3 months) hiatal hernia repair as well as brain aneursym admitted for AMS/PNA/UTI. Patient had been seen yesterday. She reports she cannot take opioids due to respiratory status Pain score 7/10 - Past Medical History Pulmonary: Yes: Cancer, Pulmonary Embolus Gastrointestinal: Yes: Hiatal Hernia ...: No - Past Surgical History Past Surgical History: Yes: Hernia Repair - Alcohol/Substance Use Hx Alcohol Use: No - Smoking History Smoking history: Never smoked Have you smoked in the past 12 months: No - Social History ADL: Family Assistance Home Medications - Allergies Allergies/Adverse Reactions: Allergies Allergy/AdvReac Type Severity Reaction Status Date / Time codeine Allergy Verified 04/12/17 09:05 ethyl alcohol Allergy Verified 04/12/17 09:05 lorazepam [From Ativan] Allergy Verified 04/12/17 09:05 meperidine HCl [From Demerol] Allergy Verified 04/12/17 09:05 nylon Allergy Verified 04/12/17 09:05 peanut Allergy Verified 04/12/17 09:05 sulfamethoxazole Allergy Verified 04/12/17 09:05 [From Bactrim] trimethoprim [From Bactrim] Allergy Verified 04/12/17 09:05 wool Allergy Verified 04/12/17 09:05 - Home Medications Home Medications: Ambulatory Orders Amitriptyline HCl [Elavil -] 50 mg PO DAILY 04/12/17 Aspirin [Aspirin EC] 81 mg PO BID 04/12/17 Atorvastatin Ca [Lipitor] 20 mg PO HS 04/12/17 Cetirizine HCl [Zyrtec -] 10 mg PO DAILY 04/12/17 Diazepam [Valium] 10 mg PO BID 04/12/17 Dicyclomine HCl [Bentyl] 10 mg PO TID 04/12/17 Fluticasone Prop 0.05% Nasal [Flonase -] 2 spray NS DAILY 04/12/17 Gabapentin 800 mg PO TID 04/12/17 Hydrochlorothiazide [Hctz -] 12.5 mg PO DAILY 04/12/17 Hydromorphone [Dilaudid -] 4 mg PO Q4H 04/12/17 Levothyroxine [Synthroid -] 25 mcg PO DAILY 04/12/17 Lidocaine 1 each TP DAILY PRN 04/12/17 Meclizine HCl [Antivert -] 12.5 mg PO TID PRN 04/12/17 Metoprolol Tartrate 25 mg PO BID 04/12/17 Mometasone Furoate [Asmanex 220Mcg -] 1 inh IH DAILY 04/12/17 Montelukast Na [Singulair -] 10 mg PO HS 04/12/17 Pantoprazole Sodium [Protonix -] 40 mg PO DAILY 04/12/17 Paroxetine HCl [Paxil] 30 mg PO DAILY 04/12/17 Sucralfate [Carafate -] 1 gm PO DAILY PRN 04/12/17 Physical Exam Vital Signs: Vital Signs Temperature 99.3 F 04/16/17 06:00 Pulse Rate 69 04/16/17 06:00 Respiratory Rate 16 04/16/17 06:00 Blood Pressure 135/78 04/16/17 06:00 O2 Sat by Pulse Oximetry (%) 96 04/15/17 21:00 Musculoskeletal: Yes: Other (chest pain around thoracic incision) Labs: CBC, BMP 04/15/17 07:05 04/15/17 07:05 Assessment/Plan Chest pain secondary to thoracentesis site 1. Patient does not want to take opioids 2. Recommend increasing tramadol 1-2 tabs PO q8h prn pain Increasing gabapentin to 300mg PO q8h Tylenol prn pain Consider outpatient medicinal marijuana 3. Physical therapy
[2017-04-16] MEDS ORDERED: PT OWN MED DRAWER 7, Y5N ONE (09:37)
[2017-04-16] MEDS: ASPIRIN COATED 81 MG TABLET.EC PO SCH ×2 (09:48→21:15)
[2017-04-16] MEDS: METOPROLOL TARTRATE 25 MG TABLET (FP) PO SCH ×2 (09:48→21:16)
[2017-04-16] MEDS: PAROXETINE HCL 20 MG, PAROXETINE HCL 10 MG PO SCH (09:48)
[2017-04-16] MEDS: LORATADINE 10 MG TABLET PO SCH (09:55)
[2017-04-16] MEDS: PANTOPRAZOLE 40 MG TABLET (FP) PO SCH (09:55)
[2017-04-16] MEDS: MOMETASONE FUROATE 220 MCG/IH INHALER IH SCH (09:56)
[2017-04-16] MEDS: TIOTROPIUM BROMIDE 18 MCG/INH (DEVICE W/ 5 CAPSULES) IH SCH (09:56)
[2017-04-16] MEDS: FLUTICASONE PROP 0.05% 16 GM NASAL SPRAY NS SCH (09:58)
--- NOTE | 2017-04-16 10:40 | PN ---
Progress Note (short form) - Note Progress Note: Reports discomfort at the thoracentesis site. Pleuritic type chest pain with deep breathing and cough. No hemoptysis. Intake & Output 04/13/17 04/14/17 04/15/17 04/16/17 23:59 23:59 23:59 23:59 Intake Total 2124 1200 1462.5 0 Output Total 3050 2300 Balance -926 -1100 1462.5 0 Weight 199 lb Last Vital Signs Temp Pulse Resp BP Pulse Ox 99.3 F 69 16 135/78 96 04/16/17 06:00 04/16/17 06:00 04/16/17 06:00 04/16/17 06:00 04/15/17 21:00 Active Medications Aspirin (Ecotrin -) 81 mg PO BID [facility] Last Admin: 04/16/17 09:48 Dose: 81 mg Atorvastatin Calcium (Lipitor -) 20 mg PO HS [facility] Last Admin: 04/15/17 21:40 Dose: 20 mg Fluticasone Propionate (Flonase -) 2 spray NS DAILY [facility] Last Admin: 04/16/17 09:58 Dose: 2 sprays Gabapentin (Neurontin -) 300 mg PO TID [facility] Last Admin: 04/16/17 06:37 Dose: 300 mg Sodium Chloride (Normal Saline -) 1,000 mls @ 75 mls/hr IV [facility] Last Admin: 04/15/17 22:41 Dose: 75 mls/hr Piperacillin Sod/Tazobactam (Sod 3.375 gm/ Dextrose) 50 mls @ 100 mls/hr IVPB Q8H-IV [facility] PRN Reason: Protocol Last Admin: 04/16/17 10:01 Dose: 100 mls/hr Levothyroxine Sodium (Synthroid -) 25 mcg PO DAILY@0700 [facility] Last Admin: 04/16/17 06:37 Dose: 25 mcg Loratadine (Claritin -) 10 mg PO DAILY [facility] Last Admin: 04/16/17 09:55 Dose: 10 mg Metoprolol Tartrate (Lopressor -) 25 mg PO BID [facility] Last Admin: 04/16/17 09:48 Dose: 25 mg Mometasone Furoate (Asmanex 220mcg -) 1 puff IH DAILY [facility] Last Admin: 04/16/17 09:56 Dose: 220 mcg Montelukast Sodium (Singulair -) 10 mg PO HS [facility] Last Admin: 04/15/17 21:40 Dose: 10 mg Pantoprazole Sodium (Protonix -) 40 mg PO DAILY [facility] Last Admin: 04/16/17 09:55 Dose: 40 mg Paroxetine HCl 20 mg/ (Paroxetine HCl 10 mg) 30 mg PO DAILY [facility] Last Admin: 04/16/17 09:48 Dose: 30 mg Sucralfate (Carafate -) 1 gm PO DAILY PRN PRN Reason: stomach pain Tiotropium [place] (Spiriva -) 1 puff IH DAILY [facility] Last Admin: 04/16/17 09:56 Dose: 1 puff Tramadol HCl (Ultram -) 50 mg PO Q6H PRN PRN Reason: PAIN Last Admin: 04/15/17 18:44 Dose: 50 mg Constitutional: Yes: Mildly uncomfortable due to pain Eyes: Yes: WNL HENT: Yes: WNL Neck: Yes: WNL Cardiovascular: Yes: Regular Rate and Rhythm, S1, S2 Respiratory: Yes: Bibasilar rhonchi Gastrointestinal: Yes: Normal Bowel Sounds, Soft, obese Extremities: Yes: WNL Edema: No Labs: Laboratory Results - last 24 hr 04/15/17 11:30 Fluid Source Y Fluid WBC 1,160 Fluid RBC 5,705 Fluid Neutrophils Y Fluid Glucose 97 Fluid Total Protein 3.4 LDH Serum/Fluid Ratio 109 Fluid Amylase 29 Pleural Fluid Source Pleural Pleural Color Yellow Pleural Appearance Hazy Pleural RBC Y Pleural Neutrophils 7 Pleural Lymphocytes 34 Pleural Eosinophils 12 Pleural Macrophages 47 Pleural Albumin 2 Pleural Amylase 27.288 Pleural Triglycerides 23 Problem List - Problems (1) TITO (acute kidney injury) Code(s): N17.9 - ACUTE KIDNEY FAILURE, UNSPECIFIED (2) Liver mass Code(s): R16.0 - HEPATOMEGALY, NOT ELSEWHERE CLASSIFIED (3) Lung cancer Code(s): C34.90 - MALIGNANT NEOPLASM OF UNSP PART OF UNSP BRONCHUS OR LUNG (4) SCC (squamous cell carcinoma of lung) Code(s): C34.90 - MALIGNANT NEOPLASM OF UNSP PART OF UNSP BRONCHUS OR LUNG (5) Small cell lung cancer in adult Code(s): C34.90 - MALIGNANT NEOPLASM OF UNSP PART OF UNSP BRONCHUS OR LUNG (6) Acute hypoxemic respiratory failure Code(s): J96.01 - ACUTE RESPIRATORY FAILURE WITH HYPOXIA (7) Chest pain Code(s): R07.9 - CHEST PAIN, UNSPECIFIED (8) Pneumonia Code(s): J18.9 - PNEUMONIA, UNSPECIFIED ORGANISM Qualifiers: Pneumonia type: aspiration pneumonia Assessment/Plan IMP ACUTE HYPOXEMIC RESPIRATORY FAILURE ,ATELECTASIS BILATERAL CONSOLIDATIONS : PNEUMONIA / ATELECTASIS LUNG CA SMALL CELL S/P RML LOBECTOMY,CHEMO S/P LEFT THORACOTOMY SECONDARY TO HIATAL HERNIA REPAIR CHEST PAIN LIVER MASS ?MET HTN PLEURAL EFFUSION EXUDATE PLAN O2 TO MAINTAIN SATURATION ANTIBIOTICS PER ID INHALED BRONCHODILATORS INCENTIVE SPIROMETER FOLLOW CYTOLOGY & CULTURES FROM PLEURAL FLUID DR TATE
--- NOTE | 2017-04-16 11:32 | PN ---
Progress Note, Physician Chief Complaint: altered mental status History of Present Illness: Mentation improved. Patient is a 61 y.o. female with a PMH SCC (R lung, Stage 3A, s/p chemotherapy + R middle lobectomy), recent (w/in last 2-3 months) hiatal hernia repair as well as brain aneursym admitted for AMS/PNA/UTI. Pt seen and examined at the bedside. She is awake and alert , states that has dx as lung cancer last year , and received chemo. She c/o joint pain and is on gabapentin for RA. She denies any headache, weakness or numbness, no h/o stroke , SD etc. Pt was started on Levonax full dose concerning PE , given the h/o PE in the past and respiratory distress however she developed nose bleed.She denies any headache, visual changes , weakness, numbness. She continues to await her MRI, which is to be limited to 15 minutes, and non- contrast. - Current Medication List Current Medications: Active Medications Aspirin (Ecotrin -) 81 mg PO BID [facility] Last Admin: 04/16/17 09:48 Dose: 81 mg Atorvastatin Calcium (Lipitor -) 20 mg PO HS [facility] Last Admin: 04/15/17 21:40 Dose: 20 mg Fluticasone Propionate (Flonase -) 2 spray NS DAILY [facility] Last Admin: 04/16/17 09:58 Dose: 2 sprays Gabapentin (Neurontin -) 300 mg PO TID [facility] Last Admin: 04/16/17 06:37 Dose: 300 mg Sodium Chloride (Normal Saline -) 1,000 mls @ 75 mls/hr IV ASDIR [facility] Last Admin: 04/15/17 22:41 Dose: 75 mls/hr Piperacillin Sod/Tazobactam (Sod 3.375 gm/ Dextrose) 50 mls @ 100 mls/hr IVPB Q8H-IV [facility]ILIN PRN Reason: Protocol Last Admin: 04/16/17 10:01 Dose: 100 mls/hr Levothyroxine Sodium (Synthroid -) 25 mcg PO DAILY@0700 [facility] Last Admin: 04/16/17 06:37 Dose: 25 mcg Loratadine (Claritin -) 10 mg PO DAILY [facility] Last Admin: 04/16/17 09:55 Dose: 10 mg Metoprolol Tartrate (Lopressor -) 25 mg PO BID [facility] Last Admin: 04/16/17 09:48 Dose: 25 mg Mometasone Furoate (Asmanex 220mcg -) 1 puff IH DAILY [facility] Last Admin: 04/16/17 09:56 Dose: 220 mcg Montelukast Sodium (Singulair -) 10 mg PO HS [facility] Last Admin: 04/15/17 21:40 Dose: 10 mg Pantoprazole Sodium (Protonix -) 40 mg PO DAILY [facility] Last Admin: 04/16/17 09:55 Dose: 40 mg Paroxetine HCl 20 mg/ (Paroxetine HCl 10 mg) 30 mg PO DAILY [facility] Last Admin: 04/16/17 09:48 Dose: 30 mg Sucralfate (Carafate -) 1 gm PO DAILY PRN PRN Reason: stomach pain Tiotropium [place] (Spiriva -) 1 puff IH DAILY [facility] Last Admin: 04/16/17 09:56 Dose: 1 puff Tramadol HCl (Ultram -) 50 mg PO Q6H PRN PRN Reason: PAIN Last Admin: 04/15/17 18:44 Dose: 50 mg - Objective Vital Signs: Vital Signs Temperature 99.3 F 04/16/17 06:00 Pulse Rate 69 04/16/17 06:00 Respiratory Rate 16 04/16/17 06:00 Blood Pressure 135/78 04/16/17 06:00 O2 Sat by Pulse Oximetry (%) 96 04/15/17 21:00 Neurological: Yes: Alert, Unsteady Gait Labs: CBC, BMP 04/15/17 07:05 04/15/17 07:05 INR, PTT INR 1.13 (0.82-1.09) 04/13/17 07:30 - ....Imaging MRI: Pending Problem List - Problems (1) Encephalopathy Assessment/Plan: improved, awaits MRI brain Code(s): G93.40 - ENCEPHALOPATHY, UNSPECIFIED
--- NOTE | 2017-04-16 13:14 | PATH ---
Cytology Non-Gynecological Report Patient Name: ANGELO TINSLEY [facility]. Rec. #: [id number] /Age/Gender: 1955 (Age: 61) / F Account: [id number] Location: [address] [place] [address]/[facility] Taken: 04/15/2017 Received: 04/15/2017 Reported: 04/16/2017 Physicians: Jaron Murray M.D. Specimen(s) Received PLEURAL FLUID Clinical History Pleural effusion, lung cancer Final Diagnosis PLEURAL FLUID, PARACENTESIS: SATISFACTORY FOR EVALUATION. NO MALIGNANT CELLS IDENTIFIED. REACTIVE MESOTHELIAL CELLS, HISTIOCYTES AND MIXED INFLAMMATORY CELLS. Electronically Signed Mesfin Zapien M.D. Gross Description Received is 45 cc of cloudy pink fluid in 50% alcohol. One cytofunnel slide and one cell block are made.
[2017-04-16] MEDS: traMADol HCL 50 MG TABLET PO PRN (14:01)
[2017-04-16] MEDS: SODIUM CHLORIDE 1,000 ML IV SCH (14:02)
--- NOTE | 2017-04-16 14:08 | PN ---
Progress Note, Physician History of Present Illness: main issue pain all over the body otherwise stable - Current Medication List Current Medications: Active Medications Aspirin (Ecotrin -) 81 mg PO BID [facility] Last Admin: 04/16/17 09:48 Dose: 81 mg Atorvastatin Calcium (Lipitor -) 20 mg PO HS [facility] Last Admin: 04/15/17 21:40 Dose: 20 mg Fluticasone Propionate (Flonase -) 2 spray NS DAILY [facility] Last Admin: 04/16/17 09:58 Dose: 2 sprays Gabapentin (Neurontin -) 300 mg PO TID [facility] Last Admin: 04/16/17 14:01 Dose: 300 mg Sodium Chloride (Normal Saline -) 1,000 mls @ 75 mls/hr IV ASDIR [facility] Last Admin: 04/16/17 14:02 Dose: 75 mls/hr Piperacillin Sod/Tazobactam (Sod 3.375 gm/ Dextrose) 50 mls @ 100 mls/hr IVPB Q8H-IV [facility]ILIN PRN Reason: Protocol Last Admin: 04/16/17 10:01 Dose: 100 mls/hr Levothyroxine Sodium (Synthroid -) 25 mcg PO DAILY@0700 [facility] Last Admin: 04/16/17 06:37 Dose: 25 mcg Loratadine (Claritin -) 10 mg PO DAILY [facility] Last Admin: 04/16/17 09:55 Dose: 10 mg Metoprolol Tartrate (Lopressor -) 25 mg PO BID [facility] Last Admin: 04/16/17 09:48 Dose: 25 mg Mometasone Furoate (Asmanex 220mcg -) 1 puff IH DAILY [facility] Last Admin: 04/16/17 09:56 Dose: 220 mcg Montelukast Sodium (Singulair -) 10 mg PO HS [facility] Last Admin: 04/15/17 21:40 Dose: 10 mg Pantoprazole Sodium (Protonix -) 40 mg PO DAILY [facility] Last Admin: 04/16/17 09:55 Dose: 40 mg Paroxetine HCl 20 mg/ (Paroxetine HCl 10 mg) 30 mg PO DAILY [facility] Last Admin: 04/16/17 09:48 Dose: 30 mg Sucralfate (Carafate -) 1 gm PO DAILY PRN PRN Reason: stomach pain Tiotropium [place] (Spiriva -) 1 puff IH DAILY [facility] Last Admin: 09/12/17 09:56 Dose: 1 puff Tramadol HCl (Ultram -) 50 mg PO Q6H PRN PRN Reason: PAIN Last Admin: 04/16/17 14:01 Dose: 50 mg - Objective Vital Signs: Vital Signs Temperature 99.3 F 04/16/17 06:00 Pulse Rate 69 04/16/17 06:00 Respiratory Rate 16 04/16/17 06:00 Blood Pressure 135/78 04/16/17 06:00 O2 Sat by Pulse Oximetry (%) 96 04/15/17 21:00 Constitutional: Yes: Calm, Mild Distress Cardiovascular: Yes: Regular Rate and Rhythm Respiratory: Yes: Poor Air Entry Gastrointestinal: Yes: Normal Bowel Sounds, Soft Musculoskeletal: Yes: WNL Extremities: Yes: WNL Neurological: Yes: Alert, Oriented Psychiatric: Yes: Alert, Oriented Labs: CBC, BMP 04/15/17 07:05 04/15/17 07:05 INR, PTT INR 1.13 (0.82-1.09) 04/13/17 07:30 Assessment/Plan Problem List - Problems (1) Encephalopathy Code(s): G93.40 - ENCEPHALOPATHY, UNSPECIFIED (2) Lung cancer Code(s): C34.90 - MALIGNANT NEOPLASM OF UNSP PART OF UNSP BRONCHUS OR LUNG (3) SCC (squamous cell carcinoma of lung) Code(s): C34.90 - MALIGNANT NEOPLASM OF UNSP PART OF UNSP BRONCHUS OR LUNG (4) UTI (urinary tract infection) Code(s): N39.0 - URINARY TRACT INFECTION, SITE NOT SPECIFIED (5) TITO (acute kidney injury) Code(s): N17.9 - ACUTE KIDNEY FAILURE, UNSPECIFIED pna uti plan continue abx nutrition await for all the reports from pleural tap rest as per primary team probably will deescalate abx by tomorrow final plan awaited
--- NOTE | 2017-04-16 14:09 | PN ---
Progress Note, Physician History of Present Illness: Pt seen and examined at bedside. She is out of bed to chair. She denies shortness of breath. - Current Medication List Current Medications: Active Medications Aspirin (Ecotrin -) 81 mg PO BID [facility] Last Admin: 04/16/17 09:48 Dose: 81 mg Atorvastatin Calcium (Lipitor -) 20 mg PO HS [facility] Last Admin: 04/15/17 21:40 Dose: 20 mg Fluticasone Propionate (Flonase -) 2 spray NS DAILY [facility] Last Admin: 04/16/17 09:58 Dose: 2 sprays Gabapentin (Neurontin -) 300 mg PO TID [facility] Last Admin: 04/16/17 14:01 Dose: 300 mg Sodium Chloride (Normal Saline -) 1,000 mls @ 75 mls/hr IV ASDIR [facility] Last Admin: 04/16/17 14:02 Dose: 75 mls/hr Piperacillin Sod/Tazobactam (Sod 3.375 gm/ Dextrose) 50 mls @ 100 mls/hr IVPB Q8H-IV MARILIN PRN Reason: Protocol Last Admin: 04/16/17 10:01 Dose: 100 mls/hr Levothyroxine Sodium (Synthroid -) 25 mcg PO DAILY@0700 [facility] Last Admin: 04/16/17 06:37 Dose: 25 mcg Loratadine (Claritin -) 10 mg PO DAILY [facility] Last Admin: 04/16/17 09:55 Dose: 10 mg Metoprolol Tartrate (Lopressor -) 25 mg PO BID [facility] Last Admin: 04/16/17 09:48 Dose: 25 mg Mometasone Furoate (Asmanex 220mcg -) 1 puff IH DAILY [facility] Last Admin: 04/16/17 09:56 Dose: 220 mcg Montelukast Sodium (Singulair -) 10 mg PO HS [facility] Last Admin: 04/15/17 21:40 Dose: 10 mg Pantoprazole Sodium (Protonix -) 40 mg PO DAILY [facility] Last Admin: 04/16/17 09:55 Dose: 40 mg Paroxetine HCl 20 mg/ (Paroxetine HCl 10 mg) 30 mg PO DAILY [facility] Last Admin: 04/16/17 09:48 Dose: 30 mg Sucralfate (Carafate -) 1 gm PO DAILY PRN PRN Reason: stomach pain Tiotropium [place] (Spiriva -) 1 puff IH DAILY [facility] Last Admin: 04/16/17 09:56 Dose: 1 puff Tramadol HCl (Ultram -) 50 mg PO Q6H PRN PRN Reason: PAIN Last Admin: 04/16/17 14:01 Dose: 50 mg - Objective Vital Signs: Vital Signs Temperature 99.3 F 04/16/17 06:00 Pulse Rate 69 04/16/17 06:00 Respiratory Rate 16 04/16/17 06:00 Blood Pressure 135/78 04/16/17 06:00 O2 Sat by Pulse Oximetry (%) 96 04/15/17 21:00 Constitutional: Yes: Calm Eyes: Yes: Conjunctiva Clear HENT: Yes: Atraumatic Neck: Yes: Supple Cardiovascular: Yes: S1, S2 Respiratory: Yes: On Nasal O2 Gastrointestinal: Yes: Soft Genitourinary: Yes: WNL Edema: No Neurological: Yes: Oriented Psychiatric: Yes: Oriented Labs: CBC, BMP 04/15/17 07:05 04/15/17 07:05 INR, PTT INR 1.13 (0.82-1.09) 04/13/17 07:30 Problem List - Problems (1) Small cell lung cancer in adult Code(s): C34.90 - MALIGNANT NEOPLASM OF UNSP PART OF UNSP BRONCHUS OR LUNG (2) CKD (chronic kidney disease) Code(s): N18.9 - CHRONIC KIDNEY DISEASE, UNSPECIFIED Assessment/Plan Current Medications Generic Name Dose Route Start Last Admin Trade Name Freq PRN Reason Stop Dose Admin Aspirin 81 mg 04/12/17 22:00 04/16/17 09:48 Ecotrin - PO 81 mg BID [facility]IN Administration Atorvastatin Calcium 20 mg 04/12/17 22:00 04/15/17 21:40 Lipitor - PO 20 mg HS [facility] Administration Fluticasone Propionate 2 spray 04/13/17 10:00 04/16/17 09:58 Flonase - NS 2 sprays DAILY [facility] Administration Gabapentin 300 mg 04/13/17 14:00 04/16/17 14:01 Neurontin - PO 300 mg TID [facility] Administration Sodium Chloride 1,000 mls @ 75 mls/hr 04/12/17 15:45 04/16/17 14:02 Normal Saline - IV 75 mls/hr ASDIR [facility] Administration Piperacillin Sod/Tazobactam 50 mls @ 100 mls/hr 04/13/17 02:00 04/16/17 10:01 Sod 3.375 gm/ Dextrose IVPB 100 mls/hr Q8H-IV [facility]ILIN Administration Protocol Levothyroxine Sodium 25 mcg 04/13/17 07:00 04/16/17 06:37 Synthroid - PO 25 mcg DAILY@0700 [facility] Administration Loratadine 10 mg 04/13/17 10:00 04/16/17 09:55 Claritin - PO 10 mg DAILY [facility] Administration Metoprolol Tartrate 25 mg 04/12/17 22:00 04/16/17 09:48 Lopressor - PO 25 mg BID [facility] Administration Mometasone Furoate 1 puff 04/13/17 10:00 04/16/17 09:56 Asmanex 220mcg - IH 220 mcg DAILY [facility] Administration Montelukast Sodium 10 mg 04/12/17 22:00 04/15/17 21:40 Singulair - PO 10 mg HS [facility] Administration Pantoprazole Sodium 40 mg 04/13/17 10:00 04/16/17 09:55 Protonix - PO 40 mg DAILY [facility] Administration Paroxetine HCl 20 mg/ 30 mg 04/13/17 10:00 04/16/17 09:48 Paroxetine HCl 10 mg PO 30 mg DAILY [facility] Administration Sucralfate 1 gm 04/12/17 15:33 Carafate - PO DAILY PRN stomach pain Tiotropium [place] 1 puff 04/13/17 14:30 04/16/17 09:56 Spiriva - IH 1 puff DAILY [facility] Administration Tramadol HCl 50 mg 04/14/17 12:28 04/16/17 14:01 Ultram - PO 50 mg Q6H PRN Administration PAIN Impression 1. CKD 2. r/o PE 3. pleural effusion 4. lung cancer 5. hypothyroidism Plan - check bmp stat - can hold fluids - also repeat labs in am - encourage PO intake - follow up thoracocentesis results - will follow Dr Fung
--- NOTE | 2017-04-16 14:13 | PN ---
Progress Note (short form) - Note Progress Note: Pt seen and examined No overnight events. Cor: RSR, No murmurs, No gallops Lungs: Clear to P&A Abd: Soft, Normal bowel sounds, No organomegaly Ext:No significant edema Skin: No rashes, Integument intact Last Vital Signs Temp Pulse Resp BP Pulse Ox 99.3 F 69 16 135/78 96 04/16/17 06:00 04/16/17 06:00 04/16/17 06:00 04/16/17 06:00 04/15/17 21:00 CBC, BMP 04/15/17 07:05 04/15/17 07:05 Current Medications Generic Name Dose Route Start Last Admin Trade Name Freq PRN Reason Stop Dose Admin Aspirin 81 mg 04/12/17 22:00 04/16/17 09:48 Ecotrin - PO 81 mg BID [facility] Administration Atorvastatin Calcium 20 mg 04/12/17 22:00 04/15/17 21:40 Lipitor - PO 20 mg HS [facility] Administration Fluticasone Propionate 2 spray 04/13/17 10:00 04/16/17 09:58 Flonase - NS 2 sprays DAILY [facility] Administration Gabapentin 300 mg 04/13/17 14:00 04/16/17 14:01 Neurontin - PO 300 mg TID [facility] Administration Sodium Chloride 1,000 mls @ 75 mls/hr 04/12/17 15:45 04/16/17 14:02 Normal Saline - IV 75 mls/hr ASDIR [facility] Administration Piperacillin Sod/Tazobactam 50 mls @ 100 mls/hr 04/13/17 02:00 04/16/17 10:01 Sod 3.375 gm/ Dextrose IVPB 100 mls/hr Q8H-IV [facility]ILIN Administration Protocol Levothyroxine Sodium 25 mcg 04/13/17 07:00 04/16/17 06:37 Synthroid - PO 25 mcg DAILY@0700 [facility] Administration Loratadine 10 mg 04/13/17 10:00 04/16/17 09:55 Claritin - PO 10 mg DAILY [facility] Administration Metoprolol Tartrate 25 mg 04/12/17 22:00 04/16/17 09:48 Lopressor - PO 25 mg BID [facility] Administration Mometasone Furoate 1 puff 04/13/17 10:00 04/16/17 09:56 Asmanex 220mcg - IH 220 mcg DAILY [facility] Administration Montelukast Sodium 10 mg 04/12/17 22:00 04/15/17 21:40 Singulair - PO 10 mg HS [facility] Administration Pantoprazole Sodium 40 mg 04/13/17 10:00 04/16/17 09:55 Protonix - PO 40 mg DAILY [facility] Administration Paroxetine HCl 20 mg/ 30 mg 04/13/17 10:00 04/16/17 09:48 Paroxetine HCl 10 mg PO 30 mg DAILY [facility] Administration Sucralfate 1 gm 04/12/17 15:33 Carafate - PO DAILY PRN stomach pain Tiotropium [place] 1 puff 04/13/17 14:30 04/16/17 09:56 Spiriva - IH 1 puff DAILY [facility] Administration Tramadol HCl 50 mg 04/14/17 12:28 04/16/17 14:01 Ultram - PO 50 mg Q6H PRN Administration PAIN Assessment/Plan: 61 y/o patient with 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 Non contrast imaging with a liver mass, not characterized (hemangioma vs neoplastic), would need contrast imaging study (CT w/ liver protocol ) ,today is going for MRI brain. Will eventually need a CT/MR with liver protocol to determine the lesion and the need for biopsy. will likely need fluids post MRI. Prior aneurysm repair and has coils - discussed with MRI team today again, who confirmed to me that they have reviewed the pts reports of Coil ( they reviewed the cards given by the pt and showed to their radiologist), who mentioned that they are compatible and would be OK for a normal study and administering contrast was Ok'd by cotton picking machine operator. AMS: CTH negative, likely metabolic (sepsis/narcotics) - appreciate input neurology - now completely back to baseline. 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 TITO: IVF - improving, renal following . 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 I called [facility] Nuclear Medicine [phone] , awaiting the report to be faxed to [facility] -I called DC oncologist , , and left my cell phone and pts info and awaiting a call back at this time. Will follow. Problem List - Problems (1) Liver mass Code(s): R16.0 - HEPATOMEGALY, NOT ELSEWHERE CLASSIFIED (2) Metabolic encephalopathy Code(s): G93.41 - METABOLIC ENCEPHALOPATHY (3) Small cell lung cancer in adult Code(s): C34.90 - MALIGNANT NEOPLASM OF UNSP PART OF UNSP BRONCHUS OR LUNG (4) Fall Code(s): W19.XXXA - UNSPECIFIED FALL, INITIAL ENCOUNTER (5) Pneumonia Code(s): J18.9 - PNEUMONIA, UNSPECIFIED ORGANISM Qualifiers: Pneumonia type: aspiration pneumonia
--- NOTE | 2017-04-16 15:26 | PN ---
Progress Note (short form) - Note Progress Note: Brief Note, Wait for today's BMP prior to contrast administration.Communicated with RN. PET-CT done : [place]:: report placed in the chart. Briefly, Impression: No evidence of hypermetabolic malignancy. post surgical changes in the left lateral chest wall and subcutaneous tissues with foci of uptake along the left angel-diaphragm and gastric cardia. Findings most likley due to recent post surgical changes given hx of diaphrgamatic hernia repair. Small left sided effusion with loculated component in the left upper posterior lung. Non avidhypodense right hepatic lesion , most likely benign in etiology and may be due to hemangioma. Small mildly dilated loops of small bowel, without definite transition point, most likely representing small bowel ileus Hypodense cystic left pelvic sidewall lesion, most likely benign etiology Problem List - Problems (1) Liver mass Code(s): R16.0 - HEPATOMEGALY, NOT ELSEWHERE CLASSIFIED (2) Metabolic encephalopathy Code(s): G93.41 - METABOLIC ENCEPHALOPATHY (3) Small cell lung cancer in adult Code(s): C34.90 - MALIGNANT NEOPLASM OF UNSP PART OF UNSP BRONCHUS OR LUNG (4) Fall Code(s): W19.XXXA - UNSPECIFIED FALL, INITIAL ENCOUNTER (5) Pneumonia Code(s): J18.9 - PNEUMONIA, UNSPECIFIED ORGANISM Qualifiers: Pneumonia type: aspiration pneumonia
--- NOTE | 2017-04-16 15:35 | PN ---
Progress Note, Physician Chief Complaint: Ms Chopra says she is feeling better today. No cp, sob, n/v. Says she is not hungry and does not want to eat much. States she has diarrhea. - Current Medication List Current Medications: Active Medications Aspirin (Ecotrin -) 81 mg PO BID [facility] Last Admin: 04/16/17 09:48 Dose: 81 mg Atorvastatin Calcium (Lipitor -) 20 mg PO HS [facility] Last Admin: 04/15/17 21:40 Dose: 20 mg Fluticasone Propionate (Flonase -) 2 spray NS DAILY [facility] Last Admin: 04/16/17 09:58 Dose: 2 sprays Gabapentin (Neurontin -) 300 mg PO TID [facility] Last Admin: 04/16/17 14:01 Dose: 300 mg Piperacillin Sod/Tazobactam (Sod 3.375 gm/ Dextrose) 50 mls @ 100 mls/hr IVPB Q8H-IV [facility]ILIN PRN Reason: Protocol Last Admin: 04/16/17 10:01 Dose: 100 mls/hr Levothyroxine Sodium (Synthroid -) 25 mcg PO DAILY@0700 [facility] Last Admin: 04/16/17 06:37 Dose: 25 mcg Loratadine (Claritin -) 10 mg PO DAILY [facility] Last Admin: 04/16/17 09:55 Dose: 10 mg Metoprolol Tartrate (Lopressor -) 25 mg PO BID [facility] Last Admin: 04/16/17 09:48 Dose: 25 mg Mometasone Furoate (Asmanex 220mcg -) 1 puff IH DAILY [facility] Last Admin: 04/16/17 09:56 Dose: 220 mcg Montelukast Sodium (Singulair -) 10 mg PO HS [facility] Last Admin: 04/15/17 21:40 Dose: 10 mg Pantoprazole Sodium (Protonix -) 40 mg PO DAILY [facility] Last Admin: 04/16/17 09:55 Dose: 40 mg Paroxetine HCl 20 mg/ (Paroxetine HCl 10 mg) 30 mg PO DAILY [facility] Last Admin: 04/16/17 09:48 Dose: 30 mg Sucralfate (Carafate -) 1 gm PO DAILY PRN PRN Reason: stomach pain Tiotropium [place] (Spiriva -) 1 puff IH DAILY [facility] Last Admin: 04/16/17 09:56 Dose: 1 puff Tramadol HCl (Ultram -) 50 mg PO Q6H PRN PRN Reason: PAIN Last Admin: 04/16/17 14:01 Dose: 50 mg - Objective Vital Signs: Vital Signs Temperature 36.8 C 04/16/17 10:00 Pulse Rate 70 04/16/17 10:00 Respiratory Rate 18 04/16/17 10:00 Blood Pressure 160/99 04/16/17 10:00 O2 Sat by Pulse Oximetry (%) 94 L 04/16/17 09:00 Constitutional: Yes: Well Nourished, No Distress, Calm Cardiovascular: Yes: Regular Rate and Rhythm. No: Gallop, Murmur, Rub Respiratory: Yes: Regular, CTA Bilaterally. No: Rales, Rhonchi, Wheezes Gastrointestinal: Yes: Normal Bowel Sounds, Soft. No: Distention, Tenderness Extremities: Yes: WNL Edema: No Labs: CBC, BMP 04/15/17 07:05 INR, PTT INR 1.13 (0.82-1.09) 04/13/17 07:30 Problem List - Problems (1) Pneumonia Code(s): J18.9 - PNEUMONIA, UNSPECIFIED ORGANISM Qualifiers: Pneumonia type: aspiration pneumonia (2) Metabolic encephalopathy Code(s): G93.41 - METABOLIC ENCEPHALOPATHY (3) Chest pain Code(s): R07.9 - CHEST PAIN, UNSPECIFIED (4) Small cell lung cancer in adult Code(s): C34.90 - MALIGNANT NEOPLASM OF UNSP PART OF UNSP BRONCHUS OR LUNG (5) Liver mass Code(s): R16.0 - HEPATOMEGALY, NOT ELSEWHERE CLASSIFIED (6) Hypokalemia Code(s): E87.6 - HYPOKALEMIA (7) Fall Code(s): W19.XXXA - UNSPECIFIED FALL, INITIAL ENCOUNTER Assessment/Plan (1) Pneumonia Assessment/Plan: -appreciate ID assistance -s/p thoracentesis with exudate -continue zosyn per ID Code(s): J18.9 - PNEUMONIA, UNSPECIFIED ORGANISM (2) Metabolic encephalopathy Assessment/Plan: -patient appears at baseline -continue to monitor Code(s): G93.41 - METABOLIC ENCEPHALOPATHY (3) Chest pain Assessment/Plan: -resolved Code(s): R07.9 - CHEST PAIN, UNSPECIFIED (4) Small cell lung cancer in adult Assessment/Plan: -appreciate oncology assistance -s/p thoracentesis, fluid sent for cytology -MRI of the brain today Code(s): C34.90 - MALIGNANT NEOPLASM OF UNSP PART OF UNSP BRONCHUS OR LUNG (5) Liver mass Assessment/Plan: -patient says either hemangioma vs mesh Code(s): R16.0 - HEPATOMEGALY, NOT ELSEWHERE CLASSIFIED (6) Hypokalemia Assessment/Plan: -resolved Code(s): E87.6 - HYPOKALEMIA (7) Fall Assessment/Plan: -fall risk precautions -PT consulted and following Code(s): W19.XXXA - UNSPECIFIED FALL, INITIAL ENCOUNTER (8) Diarrhea -check for c diff since on antibiotics -add lactobacillus
[2017-04-16 18:31] LABS: ANION GAP 8 (8-16); CALCIUM 8.4 mg/dL (8.5-10.1); CO2 26 mmol/L (21-32); CREATININE 1.2 mg/dL (0.55-1.02); GLUCOSE,RANDOM 134 mg/dL (74-106)
[2017-04-16] MEDS: MONTELUKAST NA 10 MG TABLET PO SCH (21:15)
[2017-04-16] MEDS: diphenhydrAMINE HCL 25 MG CAPSULE (FP) PO PRN (21:15)
[2017-04-16] MEDS: ATORVASTATIN CA 20 MG TABLET (FP) PO SCH (21:15)
[2017-04-17] MEDS ORDERED: POTASSIUM CHLORIDE TABS 20 MEQ TABLET.ER (FP) PO ONE (00:20)
[2017-04-17] MEDS ORDERED: PIPERACILLIN/TAZOBACTAM 3.375 GM VIAL IVPB ONE (01:07)
[2017-04-17] MEDS ORDERED: DEXTROSE 5%-WATER - 50 ML IVPB ONE (01:07)
[2017-04-17] MEDS: PIPERACILLIN/TAZOB 3.375 GM 3.375 GM in DEXTROSE 5%-WATER - 50 ML IVPB SCH ×2 (01:17→12:32)
[2017-04-17] MEDS: diphenhydrAMINE HCL 25 MG CAPSULE (FP) PO PRN (01:42)
[2017-04-17] MEDS: GABAPENTIN 300 MG CAPSULE (FP) PO SCH ×3 (06:28→22:40)
[2017-04-17] MEDS: LEVOTHYROXINE NA 25 MCG TABLET (FP) PO SCH (06:28)
[2017-04-17 08:23] LABS: BASOPHIL 0.6 % (0-2.0); EOSINOPHIL 5.4 % (0-4.5); MCH 30.8 pg (25.7-33.7); MCHC 33.5 g/dl (32.0-36.0); MEAN PLT VOLUME 7.3 fl (7.5-11.1); NEUTROPHILS 65.6 % (42.8-82.8); PLATELET COUNT 211 K/MM3 (134-434); RDW 13.9 % (11.6-15.6); WHITE BLOOD COUNT 6.2 K/mm3 (4.0-10.0)
[2017-04-17 08:36] LABS: ANION GAP 8 (8-16); CALCIUM 8.9 mg/dL (8.5-10.1); CO2 26 mmol/L (21-32); CREATININE 1.3 mg/dL (0.55-1.02); GLUCOSE,RANDOM 101 mg/dL (74-106); MAGNESIUM 1.9 mg/dL (1.8-2.4); PHOSPHOROUS 3.4 mg/dL (2.5-4.9)
[2017-04-17] MEDS: FLUTICASONE PROP 0.05% 16 GM NASAL SPRAY NS SCH (10:00)
--- NOTE | 2017-04-17 11:27 | PN ---
Progress Note (short form) - Note Progress Note: PULMONARY APPEARS LETHARGIC VSS/AFEBRILE COMPLAINING OF DIARRHEA ANICTERIC DIMINISHED B/L BREATH SOUNDS RIGHT GREATER THAN LEFT S1S2 BS+ OBESE NO CALF TENDERNESS LABS/MEDS/PATH/IMAGING/MICRO/NOTES REVIEWED IMP ACUTE HYPOXEMIC RESPIRATORY FAILURE RESOLVING BILATERAL CONSOLIDATIONS : PNEUMONIA / ATELECTASIS LUNG CA SMALL CELL S/P RML LOBECTOMY,CHEMO S/P LEFT THORACOTOMY SECONDARY TO HIATAL HERNIA REPAIR CHEST PAIN LIVER MASS ?MET HTN PLEURAL EFFUSION EXUDATE/CYTOLOGY NEGATIVE MRI BRAIN NO METS PLAN O2 TO MAINTAIN SATURATION ANTIBIOTICS PER ID INHALED BRONCHODILATORS INCENTIVE SPIROMETER AVOID OVERSEDATION Nirav NAM MD
[2017-04-17] MEDS ORDERED: PT OWN MED DRAWER 7, Y5N ONE (12:22)
[2017-04-17] MEDS: LORATADINE 10 MG TABLET PO SCH (12:25)
[2017-04-17] MEDS: LACTOBACILLUS ACIDOPHILUS 1 EACH TAB (FP) PO SCH (12:25)
[2017-04-17] MEDS: METOPROLOL TARTRATE 25 MG TABLET (FP) PO SCH ×2 (12:25→22:40)
[2017-04-17] MEDS: PANTOPRAZOLE 40 MG TABLET (FP) PO SCH (12:25)
[2017-04-17] MEDS: PAROXETINE HCL 20 MG, PAROXETINE HCL 10 MG PO SCH (12:25)
[2017-04-17] MEDS: MOMETASONE FUROATE 220 MCG/IH INHALER IH SCH (12:28)
[2017-04-17] MEDS: ASPIRIN COATED 81 MG TABLET.EC PO SCH ×2 (12:32→22:40)
[2017-04-17] MEDS: TIOTROPIUM BROMIDE 18 MCG/INH (DEVICE W/ 5 CAPSULES) IH SCH (12:32)
--- NOTE | 2017-04-17 12:52 | PN ---
Progress Note, Physician History of Present Illness: main issue pain all over the body otherwise stable had some dirrhoea - Current Medication List Current Medications: Active Medications Aspirin (Ecotrin -) 81 mg PO BID [facility] Last Admin: 04/17/17 12:32 Dose: 81 mg Atorvastatin Calcium (Lipitor -) 20 mg PO HS [facility] Last Admin: 04/16/17 21:15 Dose: 20 mg Diphenhydramine HCl (Benadryl -) 25 mg PO Q4H PRN PRN Reason: ITCHING Last Admin: 04/17/17 01:42 Dose: 25 mg Fluticasone Propionate (Flonase -) 2 spray NS DAILY [facility] Last Admin: 04/16/17 09:58 Dose: 2 sprays Gabapentin (Neurontin -) 300 mg PO TID [facility] Last Admin: 04/17/17 06:28 Dose: 300 mg Piperacillin Sod/Tazobactam (Sod 3.375 gm/ Dextrose) 50 mls @ 100 mls/hr IVPB Q8H-IV [facility] PRN Reason: Protocol Last Admin: 04/17/17 12:32 Dose: Not Given Lactobacillus Acidophilus (Bacid -) 1 tab PO DAILY [facility] Last Admin: 04/17/17 12:25 Dose: 1 tab Levothyroxine Sodium (Synthroid -) 25 mcg PO DAILY@0700 [facility] Last Admin: 04/17/17 06:28 Dose: 25 mcg Loratadine (Claritin -) 10 mg PO DAILY [facility] Last Admin: 04/17/17 12:25 Dose: 10 mg Metoprolol Tartrate (Lopressor -) 25 mg PO BID [facility] Last Admin: 04/17/17 12:25 Dose: 25 mg Mometasone Furoate (Asmanex 220mcg -) 1 puff IH DAILY [facility] Last Admin: 04/17/17 12:28 Dose: 220 mcg Montelukast Sodium (Singulair -) 10 mg PO HS [facility] Last Admin: 04/16/17 21:15 Dose: 10 mg Pantoprazole Sodium (Protonix -) 40 mg PO DAILY [facility] Last Admin: 04/17/17 12:25 Dose: 40 mg Paroxetine HCl 20 mg/ (Paroxetine HCl 10 mg) 30 mg PO DAILY [facility] Last Admin: 04/17/17 12:25 Dose: 30 mg Sucralfate (Carafate -) 1 gm PO DAILY PRN PRN Reason: stomach pain Tiotropium [place] (Spiriva -) 1 puff IH DAILY [facility] Last Admin: 04/17/17 12:32 Dose: 1 puff - Objective Vital Signs: Vital Signs Temperature 97.9 F 04/17/17 05:19 Pulse Rate 65 04/17/17 05:19 Respiratory Rate 20 04/17/17 05:19 Blood Pressure 115/82 04/17/17 05:19 O2 Sat by Pulse Oximetry (%) 94 L 04/16/17 21:00 Constitutional: Yes: No Distress, Calm Cardiovascular: Yes: Regular Rate and Rhythm Respiratory: Yes: Regular, Poor Air Entry Gastrointestinal: Yes: Normal Bowel Sounds, Soft Musculoskeletal: Yes: WNL Extremities: Yes: WNL Neurological: Yes: Alert, Oriented Psychiatric: Yes: Alert, Oriented Labs: CBC, BMP 04/17/17 07:05 04/17/17 07:05 INR, PTT INR 1.13 (0.82-1.09) 04/13/17 07:30 Assessment/Plan Problem List - Problems (1) Encephalopathy Code(s): G93.40 - ENCEPHALOPATHY, UNSPECIFIED (2) Lung cancer Code(s): C34.90 - MALIGNANT NEOPLASM OF UNSP PART OF UNSP BRONCHUS OR LUNG (3) SCC (squamous cell carcinoma of lung) Code(s): C34.90 - MALIGNANT NEOPLASM OF UNSP PART OF UNSP BRONCHUS OR LUNG (4) UTI (urinary tract infection) Code(s): N39.0 - URINARY TRACT INFECTION, SITE NOT SPECIFIED (5) TITO (acute kidney injury) Code(s): N17.9 - ACUTE KIDNEY FAILURE, UNSPECIFIED pna uti plan stopped abx all results noted patient stable rest as per primary
--- NOTE | 2017-04-17 13:02 | PN ---
Progress Note, Physician Chief Complaint: Ms Chopra says she is still having diarrhea. However she says she is doing well otherwise. Denies cp, sob, n/v. - Current Medication List Current Medications: Active Medications Aspirin (Ecotrin -) 81 mg PO BID [facility] Last Admin: 04/17/17 12:32 Dose: 81 mg Atorvastatin Calcium (Lipitor -) 20 mg PO HS [facility] Last Admin: 04/16/17 21:15 Dose: 20 mg Diphenhydramine HCl (Benadryl -) 25 mg PO Q4H PRN PRN Reason: ITCHING Last Admin: 04/17/17 01:42 Dose: 25 mg Fluticasone Propionate (Flonase -) 2 spray NS DAILY [facility] Last Admin: 04/16/17 09:58 Dose: 2 sprays Gabapentin (Neurontin -) 300 mg PO TID [facility] Last Admin: 04/17/17 06:28 Dose: 300 mg Lactobacillus Acidophilus (Bacid -) 1 tab PO DAILY [facility] Last Admin: 04/17/17 12:25 Dose: 1 tab Levothyroxine Sodium (Synthroid -) 25 mcg PO DAILY@0700 [facility] Last Admin: 04/17/17 06:28 Dose: 25 mcg Loratadine (Claritin -) 10 mg PO DAILY [facility] Last Admin: 04/17/17 12:25 Dose: 10 mg Metoprolol Tartrate (Lopressor -) 25 mg PO BID [facility] Last Admin: 04/17/17 12:25 Dose: 25 mg Mometasone Furoate (Asmanex 220mcg -) 1 puff IH DAILY [facility] Last Admin: 04/17/17 12:28 Dose: 220 mcg Montelukast Sodium (Singulair -) 10 mg PO HS [facility] Last Admin: 04/16/17 21:15 Dose: 10 mg Pantoprazole Sodium (Protonix -) 40 mg PO DAILY [facility] Last Admin: 04/17/17 12:25 Dose: 40 mg Paroxetine HCl 20 mg/ (Paroxetine HCl 10 mg) 30 mg PO DAILY [facility] Last Admin: 04/17/17 12:25 Dose: 30 mg Sucralfate (Carafate -) 1 gm PO DAILY PRN PRN Reason: stomach pain Tiotropium [place] (Spiriva -) 1 puff IH DAILY [facility] Last Admin: 04/17/17 12:32 Dose: 1 puff - Objective Vital Signs: Vital Signs Temperature 36.6 C 04/17/17 05:19 Pulse Rate 65 04/17/17 05:19 Respiratory Rate 20 04/17/17 05:19 Blood Pressure 115/82 04/17/17 05:19 O2 Sat by Pulse Oximetry (%) 94 L 04/16/17 21:00 Constitutional: Yes: No Distress, Calm, Obese Cardiovascular: Yes: Regular Rate and Rhythm. No: Gallop, Murmur, Rub Respiratory: Yes: Regular, CTA Bilaterally. No: Rales, Rhonchi, Wheezes Gastrointestinal: Yes: Normal Bowel Sounds, Soft. No: Distention, Tenderness Extremities: Yes: WNL Edema: No Labs: CBC, BMP 04/17/17 07:05 04/17/17 07:05 INR, PTT INR 1.13 (0.82-1.09) 04/13/17 07:30 Problem List - Problems (1) Pneumonia Code(s): J18.9 - PNEUMONIA, UNSPECIFIED ORGANISM Qualifiers: Pneumonia type: aspiration pneumonia (2) Metabolic encephalopathy Code(s): G93.41 - METABOLIC ENCEPHALOPATHY (3) Chest pain Code(s): R07.9 - CHEST PAIN, UNSPECIFIED (4) Small cell lung cancer in adult Code(s): C34.90 - MALIGNANT NEOPLASM OF UNSP PART OF UNSP BRONCHUS OR LUNG (5) Liver mass Code(s): R16.0 - HEPATOMEGALY, NOT ELSEWHERE CLASSIFIED (6) Hypokalemia Code(s): E87.6 - HYPOKALEMIA (7) Fall Code(s): W19.XXXA - UNSPECIFIED FALL, INITIAL ENCOUNTER (8) C. difficile diarrhea Code(s): A04.7 - ENTEROCOLITIS DUE TO CLOSTRIDIUM DIFFICILE Assessment/Plan (1) Pneumonia Assessment/Plan: -appreciate ID assistance -s/p thoracentesis with exudate, however NGTD -ID to see and decide if can be switched to oral antibiotics Code(s): J18.9 - PNEUMONIA, UNSPECIFIED ORGANISM (2) Metabolic encephalopathy Assessment/Plan: -at baseline Code(s): G93.41 - METABOLIC ENCEPHALOPATHY (3) Chest pain Assessment/Plan: -resolved Code(s): R07.9 - CHEST PAIN, UNSPECIFIED (4) Small cell lung cancer in adult Assessment/Plan: -appreciate oncology assistance -MRI brain negative -thoracentesis shows no malignant cells Code(s): C34.90 - MALIGNANT NEOPLASM OF UNSP PART OF UNSP BRONCHUS OR LUNG (5) Liver mass Assessment/Plan: -patient says either hemangioma vs mesh -obtain CT scan with contrast vs MRCP per oncology recommendations Code(s): R16.0 - HEPATOMEGALY, NOT ELSEWHERE CLASSIFIED (6) Hypokalemia Assessment/Plan: -resolved Code(s): E87.6 - HYPOKALEMIA (7) Fall Assessment/Plan: -fall risk precautions -PT consulted and following Code(s): W19.XXXA - UNSPECIFIED FALL, INITIAL ENCOUNTER (8) Diarrhea -c diff positive for antigen but negative for antibody -Dr Tomlinson to evaluate, suspect will need treatment
--- NOTE | 2017-04-17 13:12 | PN ---
Progress Note (short form) - Note Progress Note: Last Vital Signs Note from 04/17: lost for some reason, completing now. Temp Pulse Resp BP Pulse Ox 97.9 F 65 20 115/82 94 L 04/17/17 05:19 04/17/17 05:19 04/17/17 05:19 04/17/17 05:19 04/16/17 21:00 CBC, BMP 04/17/17 07:05 04/17/17 07:05 Current Medications Generic Name Dose Route Start Last Admin Trade Name Freq PRN Reason Stop Dose Admin Aspirin 81 mg 04/12/17 22:00 04/17/17 12:32 Ecotrin - PO 81 mg BID [facility] Administration Atorvastatin Calcium 20 mg 04/12/17 22:00 04/16/17 21:15 Lipitor - PO 20 mg HS [facility] Administration Diphenhydramine HCl 25 mg 04/16/17 19:44 04/17/17 01:42 Benadryl - PO 25 mg Q4H PRN Administration ITCHING Fluticasone Propionate 2 spray 04/13/17 10:00 04/16/17 09:58 Flonase - NS 2 sprays DAILY [facility] Administration Gabapentin 300 mg 04/13/17 14:00 04/17/17 06:28 Neurontin - PO 300 mg TID [facility] Administration Lactobacillus Acidophilus 1 tab 04/17/17 10:00 04/17/17 12:25 Bacid - PO 1 tab DAILY [facility] Administration Levothyroxine Sodium 25 mcg 04/13/17 07:00 04/17/17 06:28 Synthroid - PO 25 mcg DAILY@0700 [facility] Administration Loratadine 10 mg 04/13/17 10:00 04/17/17 12:25 Claritin - PO 10 mg DAILY [facility] Administration Metoprolol Tartrate 25 mg 04/12/17 22:00 04/17/17 12:25 Lopressor - PO 25 mg BID [facility] Administration Mometasone Furoate 1 puff 04/13/17 10:00 04/17/17 12:28 Asmanex 220mcg - IH 220 mcg DAILY [facility] Administration Montelukast Sodium 10 mg 04/12/17 22:00 04/16/17 21:15 Singulair - PO 10 mg HS [facility] Administration Pantoprazole Sodium 40 mg 04/13/17 10:00 09/13/17 12:25 Protonix - PO 40 mg DAILY [facility] Administration Paroxetine HCl 20 mg/ 30 mg 04/13/17 10:00 04/17/17 12:25 Paroxetine HCl 10 mg PO 30 mg DAILY [facility] Administration Sucralfate 1 gm 04/12/17 15:33 Carafate - PO DAILY PRN stomach pain Tiotropium [place] 1 puff 04/13/17 14:30 04/17/17 12:32 Spiriva - IH 1 puff DAILY [facility] Administration 61 y/o patient with 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 Admitted w/ AMS now resolved. CTH/MRI : No mets CT abdomen liver protocol: Hemangioma PET-CT : No evidence of malignancy F/u advised in the office, info given Would also need pain management f.u will follow Problem List - Problems (1) Liver mass Code(s): R16.0 - HEPATOMEGALY, NOT ELSEWHERE CLASSIFIED (2) Metabolic encephalopathy Code(s): G93.41 - METABOLIC ENCEPHALOPATHY (3) Small cell lung cancer in adult Code(s): C34.90 - MALIGNANT NEOPLASM OF UNSP PART OF UNSP BRONCHUS OR LUNG (4) Fall Code(s): W19.XXXA - UNSPECIFIED FALL, INITIAL ENCOUNTER (5) Pneumonia Code(s): J18.9 - PNEUMONIA, UNSPECIFIED ORGANISM
--- NOTE | 2017-04-17 16:22 | PN ---
Progress Note, Physician History of Present Illness: Pt seen and examined at bedside. She has no complaints. She feels better today. - Current Medication List Current Medications: Active Medications Aspirin (Ecotrin -) 81 mg PO BID [facility] Last Admin: 04/17/17 12:32 Dose: 81 mg Atorvastatin Calcium (Lipitor -) 20 mg PO HS [facility] Last Admin: 04/16/17 21:15 Dose: 20 mg Diphenhydramine HCl (Benadryl -) 25 mg PO Q4H PRN PRN Reason: ITCHING Last Admin: 04/17/17 01:42 Dose: 25 mg Fluticasone Propionate (Flonase -) 2 spray NS DAILY [facility] Last Admin: 04/16/17 09:58 Dose: 2 sprays Gabapentin (Neurontin -) 300 mg PO TID [facility] Last Admin: 04/17/17 06:28 Dose: 300 mg Lactobacillus Acidophilus (Bacid -) 1 tab PO DAILY [facility] Last Admin: 04/17/17 12:25 Dose: 1 tab Levothyroxine Sodium (Synthroid -) 25 mcg PO DAILY@0700 [facility] Last Admin: 04/17/17 06:28 Dose: 25 mcg Loratadine (Claritin -) 10 mg PO DAILY [facility] Last Admin: 04/17/17 12:25 Dose: 10 mg Metoprolol Tartrate (Lopressor -) 25 mg PO BID [facility] Last Admin: 04/17/17 12:25 Dose: 25 mg Mometasone Furoate (Asmanex 220mcg -) 1 puff IH DAILY [facility] Last Admin: 04/17/17 12:28 Dose: 220 mcg Montelukast Sodium (Singulair -) 10 mg PO HS [facility] Last Admin: 04/16/17 21:15 Dose: 10 mg Pantoprazole Sodium (Protonix -) 40 mg PO DAILY [facility] Last Admin: 04/17/17 12:25 Dose: 40 mg Paroxetine HCl 20 mg/ (Paroxetine HCl 10 mg) 30 mg PO DAILY [facility] Last Admin: 04/17/17 12:25 Dose: 30 mg Sucralfate (Carafate -) 1 gm PO DAILY PRN PRN Reason: stomach pain Tiotropium [place] (Spiriva -) 1 puff IH DAILY [facility] Last Admin: 04/17/17 12:32 Dose: 1 puff - Objective Vital Signs: Vital Signs Temperature 98.7 F 04/17/17 14:11 Pulse Rate 82 04/17/17 14:11 Respiratory Rate 16 04/17/17 14:11 Blood Pressure 149/80 04/17/17 14:11 O2 Sat by Pulse Oximetry (%) 94 L 04/16/17 21:00 Constitutional: Yes: Calm Eyes: Yes: Conjunctiva Clear HENT: Yes: Atraumatic Neck: Yes: Supple Cardiovascular: Yes: S1, S2 Respiratory: Yes: On Nasal O2 Gastrointestinal: Yes: Soft Genitourinary: Yes: WNL Musculoskeletal: Yes: WNL Extremities: Yes: WNL Edema: No Neurological: Yes: Oriented Psychiatric: Yes: Oriented Labs: CBC, BMP 04/17/17 07:05 04/17/17 07:05 INR, PTT INR 1.13 (0.82-1.09) 04/13/17 07:30 Problem List - Problems (1) Small cell lung cancer in adult Code(s): C34.90 - MALIGNANT NEOPLASM OF UNSP PART OF UNSP BRONCHUS OR LUNG (2) CKD (chronic kidney disease) Code(s): N18.9 - CHRONIC KIDNEY DISEASE, UNSPECIFIED Assessment/Plan Current Medications Generic Name Dose Route Start Last Admin Trade Name Freq PRN Reason Stop Dose Admin Aspirin 81 mg 04/12/17 22:00 04/17/17 12:32 Ecotrin - PO 81 mg BID [facility] Administration Atorvastatin Calcium 20 mg 04/12/17 22:00 04/16/17 21:15 Lipitor - PO 20 mg HS [facility] Administration Diphenhydramine HCl 25 mg 04/16/17 19:44 04/17/17 01:42 Benadryl - PO 25 mg Q4H PRN Administration ITCHING Fluticasone Propionate 2 spray 04/13/17 10:00 04/16/17 09:58 Flonase - NS 2 sprays DAILY [facility] Administration Gabapentin 300 mg 04/13/17 14:00 04/17/17 06:28 Neurontin - PO 300 mg TID [facility] Administration Lactobacillus Acidophilus 1 tab 04/17/17 10:00 04/17/17 12:25 Bacid - PO 1 tab DAILY [facility] Administration Levothyroxine Sodium 25 mcg 04/13/17 07:00 04/17/17 06:28 Synthroid - PO 25 mcg DAILY@0700 [facility] Administration Loratadine 10 mg 04/13/17 10:00 04/17/17 12:25 Claritin - PO 10 mg DAILY [facility] Administration Metoprolol Tartrate 25 mg 04/12/17 22:00 04/17/17 12:25 Lopressor - PO 25 mg BID [facility] Administration Mometasone Furoate 1 puff 04/13/17 10:00 04/17/17 12:28 Asmanex 220mcg - IH 220 mcg DAILY [facility] Administration Montelukast Sodium 10 mg 04/12/17 22:00 04/16/17 21:15 Singulair - PO 10 mg HS [facility] Administration Pantoprazole Sodium 40 mg 04/13/17 10:00 04/17/17 12:25 Protonix - PO 40 mg DAILY [facility] Administration Paroxetine HCl 20 mg/ 30 mg 04/13/17 10:00 04/17/17 12:25 Paroxetine HCl 10 mg PO 30 mg DAILY [facility] Administration Sucralfate 1 gm 04/12/17 15:33 Carafate - PO DAILY PRN stomach pain Tiotropium [place] 1 puff 04/13/17 14:30 04/17/17 12:32 Spiriva - IH 1 puff DAILY [facility] Administration Impression 1. CKD 2. r/o PE 3. pleural effusion 4. lung cancer 5. hypothyroidism Plan - renal function stable for now - outpt renal workup - can stop fluids - encourage PO intake - will follow Dr Fung
--- NOTE | 2017-04-17 18:00 | PN ---
Progress Note (short form) - Note Progress Note: 61 y.o. female with a PMH SCC (R lung, Stage 3A, s/p chemotherapy + R middle lobectomy), recent (w/in last 2-3 months) hiatal hernia repair as well as brain aneursym admitted for AMS/PNA/UTI. Pt seen and examined at the bedside. She is awake and alert , states that has dx as lung cancer last year , and received chemo. She c/o joint pain and is on gabapentin for RA. She denies any headache, weakness or numbness, no h/o stroke , [place] etc. Pt was started on Levonax full dose concerning PE , given the h/o PE in the past and respiratory distress however she developed nose bleed. F/U: MS much improved; back to baseline MRI BR- no mets CTA : no PE, liver lesion, L Pleural effusion she states she gets occasional periods of hand weakness- hx of neuropathy Vital Signs Temperature 98.7 F 04/17/17 14:11 Pulse Rate 82 04/17/17 14:11 Respiratory Rate 16 04/17/17 14:11 Blood Pressure 149/80 04/17/17 14:11 O2 Sat by Pulse Oximetry (%) 92 L 04/17/17 09:00 CBCD WBC 5.8 K/mm3 (4.0-10.0) 04/15/17 07:05 RBC 3.45 M/mm3 (3.60-5.2) L 04/15/17 07:05 Hgb 10.8 GM/dL (10.7-15.3) D 04/15/17 07:05 Hct 32.4 % (32.4-45.2) 04/15/17 07:05 MCV 93.9 fl (80-96) 04/15/17 07:05 MCHC 33.3 g/dl (32.0-36.0) 04/15/17 07:05 RDW 14.3 % (11.6-15.6) 04/15/17 07:05 Plt Count 226 K/MM3 (134-434) 04/15/17 07:05 MPV 7.5 fl (7.5-11.1) 04/15/17 07:05 CMP Sodium 144 mmol/L (136-145) 04/15/17 07:05 Potassium 3.4 mmol/L (3.5-5.1) L 04/15/17 07:05 Chloride 108 mmol/L (98-107) H 04/15/17 07:05 Carbon Dioxide 25 mmol/L (21-32) 04/15/17 07:05 Anion Gap 11 (8-16) 04/15/17 07:05 BUN 8 mg/dL (7-18) 04/15/17 07:05 Creatinine 1.3 mg/dL (0.55-1.02) H 04/15/17 07:05 Creat Clearance w eGFR 41.92 (>60) 04/15/17 07:05 Calcium 8.7 mg/dL (8.5-10.1) 04/15/17 07:05 Total Bilirubin 0.5 mg/dL (0.2-1.0) 04/15/17 07:05 AST 16 U/L (15-37) 04/15/17 07:05 ALT 20 U/L (12-78) 04/15/17 07:05 Alkaline Phosphatase 125 U/L (45-117) H 04/15/17 07:05 Total Protein 6.7 g/dl (6.4-8.2) 04/15/17 07:05 Albumin 3.4 g/dl (3.4-5.0) 04/15/17 07:05 Level Of Consciousness: Yes: Oriented to Person, Oriented to Place, Oriented to Time Eyes: Yes: PERRLA Speech: WNL Cranial Nerves II-XII Intact: Yes Gag: Present DTR's: 1+ Left Bicep, 1+ Right Bicep, 1+ Left Tricep, 1+ Right Tricep, 1+ Left Brachioradialis, 1+ Right Brachioradialis, 1+ Left Achilles, 1+ Right Achilles Response to light touch: Normal Response to pain prick: Normal Coordination: Normal: Finger to Nose Motor Strength: Moves all exts , no focal weakness Gait: Other (Deferred ) A/P: AMS and multiple fall due to encephalopathy , inf/ metabloic; ? pneumonia , UTI in the setting of lung cancer; h/o brain aneurysm s/p coiling. MS back to baseline, MRI no mets neurology sign off Dr Lopes
[2017-04-17] MEDS: ATORVASTATIN CA 20 MG TABLET (FP) PO SCH (22:40)
[2017-04-17] MEDS: MONTELUKAST NA 10 MG TABLET PO SCH (22:40)
[2017-04-17] MEDS ORDERED: traMADol HCL 50 MG TABLET PO PRN (22:42)
[2017-04-18] MEDS: GABAPENTIN 300 MG CAPSULE (FP) PO SCH ×2 (06:06→13:49)
[2017-04-18] MEDS: LEVOTHYROXINE NA 25 MCG TABLET (FP) PO SCH (06:13)
[2017-04-18] MEDS: SODIUM CHLORIDE 1,000 ML IV SCH ×2 (06:14→16:04)
[2017-04-18] MEDS ORDERED: PT OWN MED DRAWER 7, Y5N ONE (09:31)
[2017-04-18] MEDS: MOMETASONE FUROATE 220 MCG/IH INHALER IH SCH (09:33)
[2017-04-18] MEDS: LACTOBACILLUS ACIDOPHILUS 1 EACH TAB (FP) PO SCH (09:34)
[2017-04-18] MEDS: FLUTICASONE PROP 0.05% 16 GM NASAL SPRAY NS SCH (09:35)
[2017-04-18] MEDS: ASPIRIN COATED 81 MG TABLET.EC PO SCH (09:35)
[2017-04-18] MEDS: PANTOPRAZOLE 40 MG TABLET (FP) PO SCH (09:35)
[2017-04-18] MEDS: LORATADINE 10 MG TABLET PO SCH (09:35)
[2017-04-18] MEDS: METOPROLOL TARTRATE 25 MG TABLET (FP) PO SCH (09:35)
[2017-04-18] MEDS: TIOTROPIUM BROMIDE 18 MCG/INH (DEVICE W/ 5 CAPSULES) IH SCH (09:36)
[2017-04-18] MEDS: PAROXETINE HCL 20 MG, PAROXETINE HCL 10 MG PO SCH (09:36)
[2017-04-18 09:43] LABS: MCH 30.4 pg (25.7-33.7); MCHC 32.8 g/dl (32.0-36.0); MEAN CELL VOLUME 92.5 fl (80-96); MEAN PLT VOLUME 7.6 fl (7.5-11.1); PLATELET COUNT 222 K/MM3 (134-434); RDW 14.2 % (11.6-15.6); WHITE BLOOD COUNT 5.6 K/mm3 (4.0-10.0)
--- NOTE | 2017-04-18 10:24 | PN ---
Progress Note (short form) - Note Progress Note: Breathing feels ok. Some dry cough. No hemoptysis. (+) LBP. Intake & Output 04/15/17 04/16/17 04/17/17 04/18/17 23:59 23:59 23:59 23:59 Intake Total 1462.5 490 1020 Balance 1462.5 490 1020 Last Vital Signs Temp Pulse Resp BP Pulse Ox 98.4 F 84 20 116/70 97 04/18/17 06:00 04/18/17 09:36 04/18/17 06:00 04/18/17 06:00 04/18/17 09:36 Active Medications Aspirin (Ecotrin -) [address] [facility] Last Admin: 04/18/17 09:35 Dose: 81 mg Atorvastatin Calcium (Lipitor -) 20 mg PO [facility] Last Admin: 04/17/17 22:40 Dose: 20 mg Diphenhydramine HCl (Benadryl -) 25 mg PO Q4H PRN PRN Reason: ITCHING Last Admin: 04/17/17 01:42 Dose: 25 mg Fluticasone Propionate (Flonase -) [address] [facility] Last Admin: 04/18/17 09:35 Dose: 2 sprays Gabapentin (Neurontin -) [address] [facility] Last Admin: 04/18/17 06:06 Dose: 300 mg Sodium Chloride (Normal Saline -) 1,000 mls @ 83 mls/hr IV ASDIR [facility] Last Admin: 04/18/17 06:14 Dose: 83 mls/hr Lactobacillus Acidophilus (Bacid -) [address] [facility] Last Admin: 04/18/17 09:34 Dose: 1 tab Levothyroxine Sodium (Synthroid -) 25 mcg PO DAILY@0700 [facility] Last Admin: 04/18/17 06:13 Dose: 25 mcg Loratadine (Claritin -) [address] [facility] Last Admin: 04/18/17 09:35 Dose: 10 mg Metoprolol Tartrate (Lopressor -) [address] [facility] Last Admin: 04/18/17 09:35 Dose: 25 mg Mometasone Furoate (Asmanex 220mcg -) [address] [facility] Last Admin: 04/18/17 09:33 Dose: 1 puff Montelukast Sodium (Singulair -) 10 mg PO [facility] Last Admin: 04/17/17 22:40 Dose: 10 mg Pantoprazole Sodium (Protonix -) [address] [facility] Last Admin: 04/18/17 09:35 Dose: 40 mg Paroxetine HCl 20 mg/ (Paroxetine HCl 10 mg) [address] [facility] Last Admin: 04/18/17 09:36 Dose: 30 mg Sucralfate (Carafate -) 1 gm PO DAILY PRN PRN Reason: stomach pain Tiotropium [place] (Spiriva -) [address] [facility] Last Admin: 04/18/17 09:36 Dose: 1 puff Tramadol HCl (Ultram -) 50 mg PO Q6H PRN PRN Reason: PAIN Last Admin: 04/18/17 09:36 Dose: 50 mg Constitutional: Yes: Mildly uncomfortable due to pain Eyes: Yes: WNL HENT: Yes: WNL Neck: Yes: WNL Cardiovascular: Yes: Regular Rate and Rhythm, S1, S2 Respiratory: Yes: Bibasilar rhonchi Gastrointestinal: Yes: Normal Bowel Sounds, Soft, obese Extremities: Yes: WNL Edema: No Labs: Laboratory Results - last 24 hr 04/18/17 09:10 WBC 5.6 RBC 3.34 L Hgb 10.2 L Hct 30.9 L MCV 92.5 MCH 30.4 MCHC 32.8 RDW 14.2 Plt Count 222 MPV 7.6 Problem List - Problems (1) TITO (acute kidney injury) Code(s): N17.9 - ACUTE KIDNEY FAILURE, UNSPECIFIED (2) Liver mass Code(s): R16.0 - HEPATOMEGALY, NOT ELSEWHERE CLASSIFIED (3) Lung cancer Code(s): C34.90 - MALIGNANT NEOPLASM OF UNSP PART OF UNSP BRONCHUS OR LUNG (4) SCC (squamous cell carcinoma of lung) Code(s): C34.90 - MALIGNANT NEOPLASM OF UNSP PART OF UNSP BRONCHUS OR LUNG (5) Small cell lung cancer in adult Code(s): C34.90 - MALIGNANT NEOPLASM OF UNSP PART OF UNSP BRONCHUS OR LUNG (6) Acute hypoxemic respiratory failure Code(s): J96.01 - ACUTE RESPIRATORY FAILURE WITH HYPOXIA (7) Chest pain Code(s): R07.9 - CHEST PAIN, UNSPECIFIED (8) Pneumonia Code(s): J18.9 - PNEUMONIA, UNSPECIFIED ORGANISM Qualifiers: Pneumonia type: aspiration pneumonia Assessment/Plan IMP ACUTE HYPOXEMIC RESPIRATORY FAILURE ,ATELECTASIS BILATERAL CONSOLIDATIONS : PNEUMONIA / ATELECTASIS LUNG CA SMALL CELL S/P RML LOBECTOMY,CHEMO S/P LEFT THORACOTOMY SECONDARY TO HIATAL HERNIA REPAIR CHEST PAIN LIVER MASS ?MET HTN PLEURAL EFFUSION EXUDATE PLAN O2 TO MAINTAIN SATURATION ANTIBIOTICS PER ID INHALED BRONCHODILATORS INCENTIVE SPIROMETER D/C PLANNING DR TATE
[2017-04-18 10:37] LABS: ALBUMIN 3.4 g/dl (3.4-5.0); ALK PHOS 117 U/L (45-117); ANION GAP 8 (8-16); BILIRUBIN,TOTAL 0.4 mg/dL (0.2-1.0); CALCIUM 8.6 mg/dL (8.5-10.1); CO2 26 mmol/L (21-32); CREATININE 1.2 mg/dL (0.55-1.02); GLUCOSE,RANDOM 97 mg/dL (74-106); SGOT/AST 19 U/L (15-37); SGPT/ALT 23 U/L (12-78); TOT PROT 6.3 g/dl (6.4-8.2)
--- NOTE | 2017-04-18 12:53 | DS ---
Physical Examination Vital Signs: Vital Signs Temperature 36.9 C 04/18/17 08:00 Pulse Rate 115 H 04/18/17 10:38 Respiratory Rate 20 04/18/17 08:00 Blood Pressure 168/95 04/18/17 08:00 O2 Sat by Pulse Oximetry (%) 94 L 04/18/17 10:38 Constitutional: Yes: No Distress, Calm, Obese Cardiovascular: Yes: Regular Rate and Rhythm. No: Gallop, Murmur, Rub Respiratory: Yes: Regular, CTA Bilaterally. No: Rales, Rhonchi, Wheezes Gastrointestinal: Yes: Normal Bowel Sounds, Soft. No: Distention, Tenderness Extremities: Yes: WNL Edema: No Labs: CBC, BMP 04/18/17 09:10 04/18/17 09:10 Discharge Summary Reason For Visit: PNEUMONIA Current Active Problems TITO (acute kidney injury) (Acute) Acute hypoxemic respiratory failure (Acute) C. difficile diarrhea (Acute) CKD (chronic kidney disease) (Acute) Chest pain (Acute) Encephalopathy (Acute) Fall (Acute) Hypokalemia (Acute) Liver mass (Acute) Lung cancer (Acute) Metabolic encephalopathy (Acute) Pneumonia (Acute) SCC (squamous cell carcinoma of lung) (Acute) Small cell lung cancer in adult (Acute) UTI (urinary tract infection) (Acute) Hospital Course: (1) Pneumonia Code(s): J18.9 - PNEUMONIA, UNSPECIFIED ORGANISM Qualifiers: Pneumonia type: aspiration pneumonia (2) Metabolic encephalopathy Code(s): G93.41 - METABOLIC ENCEPHALOPATHY (3) Chest pain Code(s): R07.9 - CHEST PAIN, UNSPECIFIED (4) Small cell lung cancer in adult Code(s): C34.90 - MALIGNANT NEOPLASM OF UNSP PART OF UNSP BRONCHUS OR LUNG (5) Liver mass Code(s): R16.0 - HEPATOMEGALY, NOT ELSEWHERE CLASSIFIED (6) Hypokalemia Code(s): E87.6 - HYPOKALEMIA (7) Fall Code(s): W19.XXXA - UNSPECIFIED FALL, INITIAL ENCOUNTER (8) C. difficile diarrhea Code(s): A04.7 - ENTEROCOLITIS DUE TO CLOSTRIDIUM DIFFICILE Ms Chopra is a very pleasant 61 year old female who came in with multifactorial metabolic encephalopathy. On presentation she was very somnolent and found to have a pneumonia. ID was consulted considering her history and she was placed on broad spectrum antibiotics. She was also on a large amount of medication that can cause AMS. These were held. She was evaluated by neurology and pain management, her gabapentin was restarted at a lower dose and her narcotics were transitioned to tramadol. She was seen by oncology since she has a history of metastatic SCLS. She underwent MRI of the brain, no mets were found. She was also noted to have possible hemangioma of the liver (which per patient she has a history of), this was confirmed by CT scan with contrast. She was having multiple falls prior to admission secondary to encephalopathy, she was followed by PT while here. This did not recur with treatment and adjustment of medications. She was having diarrhea and it was tested for c diff, it was antibody positive and antigen negative. She most likely had c diff in the past. She was seen by ID and was not started on treatment at this time. She is currently safe for discharge home. She will need home oxygen prior to discharge. 41 minutes spent in preparation of this discharge Condition: Good - Instructions Diet, Activity, Other Instructions: resume previous diet and activity Referrals: Curly Goss MD [Primary Care Provider] - Marian Last MD [Staff Physician] - Disposition: HOME - Home Medications Comprehensive Discharge Medication List: Ambulatory Orders Aspirin [Aspirin EC] 81 mg PO BID 04/12/17 Atorvastatin Ca [Lipitor] 20 mg PO HS 04/12/17 Cetirizine HCl [Zyrtec -] 10 mg PO DAILY 04/12/17 Dicyclomine HCl [Bentyl] 10 mg PO TID 04/12/17 Fluticasone Prop 0.05% Nasal [Flonase -] 2 spray NS DAILY 04/12/17 Levothyroxine [Synthroid -] 25 mcg PO DAILY 04/12/17 Metoprolol Tartrate 25 mg PO BID 04/12/17 Mometasone Furoate [Asmanex 220Mcg -] 1 inh IH DAILY 04/12/17 Montelukast Na [Singulair -] 10 mg PO HS 04/12/17 Pantoprazole Sodium [Protonix -] 40 mg PO DAILY 04/12/17 Paroxetine HCl [Paxil] 30 mg PO DAILY 04/12/17 Sucralfate [Carafate -] 1 gm PO DAILY PRN 04/12/17 Gabapentin [Neurontin -] 300 mg PO TID #90 cap 04/18/17 Lactobacillus Acidophilus [Bacid -] 1 tab PO DAILY #7 tab 04/18/17 Tiotropium [place] [Spiriva] 1 puff IH DAILY #1 inh 04/18/17 Tramadol HCl [Ultram -] 50 mg PO Q6H PRN #30 tablet MDD 400mg 04/18/17
[2017-04-18 14:41] VITALS: BP 130/77; PULSE 80; TEMP 99.6
--- NOTE | 2017-04-18 14:54 | PN ---
Progress Note, Physician History of Present Illness: doing well headache main issues - Current Medication List Current Medications: Active Medications Aspirin (Ecotrin -) 81 mg PO BID [facility] Last Admin: 04/18/17 09:35 Dose: 81 mg Atorvastatin Calcium (Lipitor -) 20 mg PO HS [facility] Last Admin: 04/17/17 22:40 Dose: 20 mg Diphenhydramine HCl (Benadryl -) 25 mg PO Q4H PRN PRN Reason: ITCHING Last Admin: 04/17/17 01:42 Dose: 25 mg Fluticasone Propionate (Flonase -) 2 spray NS DAILY [facility] Last Admin: 04/18/17 09:35 Dose: 2 sprays Gabapentin (Neurontin -) 300 mg PO TID [facility] Last Admin: 04/18/17 13:49 Dose: 300 mg Sodium Chloride (Normal Saline -) 1,000 mls @ 83 mls/hr IV ASDIR [facility] Last Admin: 04/18/17 06:14 Dose: 83 mls/hr Lactobacillus Acidophilus (Bacid -) 1 tab PO DAILY [facility] Last Admin: 04/18/17 09:34 Dose: 1 tab Levothyroxine Sodium (Synthroid -) 25 mcg PO DAILY@0700 [facility] Last Admin: 04/18/17 06:13 Dose: 25 mcg Loratadine (Claritin -) 10 mg PO DAILY [facility] Last Admin: 04/18/17 09:35 Dose: 10 mg Metoprolol Tartrate (Lopressor -) 25 mg PO BID [facility] Last Admin: 04/18/17 09:35 Dose: 25 mg Mometasone Furoate (Asmanex 220mcg -) 1 puff IH DAILY [facility] Last Admin: 04/18/17 09:33 Dose: 1 puff Montelukast Sodium (Singulair -) 10 mg PO HS [facility] Last Admin: 04/17/17 22:40 Dose: 10 mg Pantoprazole Sodium (Protonix -) 40 mg PO DAILY [facility] Last Admin: 04/18/17 09:35 Dose: 40 mg Paroxetine HCl 20 mg/ (Paroxetine HCl 10 mg) 30 mg PO DAILY [facility] Last Admin: 04/18/17 09:36 Dose: 30 mg Sucralfate (Carafate -) 1 gm PO DAILY PRN PRN Reason: stomach pain Tiotropium [place] (Spiriva -) 1 puff IH DAILY [facility] Last Admin: 04/18/17 09:36 Dose: 1 puff Tramadol HCl (Ultram -) 50 mg PO Q6H PRN PRN Reason: PAIN Last Admin: 04/18/17 09:36 Dose: 50 mg - Objective Vital Signs: Vital Signs Temperature 99.6 F 04/18/17 14:40 Pulse Rate 80 04/18/17 14:40 Respiratory Rate 20 04/18/17 14:40 Blood Pressure 130/77 04/18/17 14:40 O2 Sat by Pulse Oximetry (%) 94 L 04/18/17 10:38 Constitutional: Yes: No Distress, Calm Cardiovascular: Yes: Regular Rate and Rhythm Respiratory: Yes: Regular Gastrointestinal: Yes: Normal Bowel Sounds, Soft Musculoskeletal: Yes: WNL Extremities: Yes: WNL Neurological: Yes: Alert, Oriented Labs: CBC, BMP 04/18/17 09:10 04/18/17 09:10 INR, PTT INR 1.13 (0.82-1.09) 04/13/17 07:30 Assessment/Plan Problem List - Problems (1) Encephalopathy Code(s): G93.40 - ENCEPHALOPATHY, UNSPECIFIED (2) Lung cancer Code(s): C34.90 - MALIGNANT NEOPLASM OF UNSP PART OF UNSP BRONCHUS OR LUNG (3) SCC (squamous cell carcinoma of lung) Code(s): C34.90 - MALIGNANT NEOPLASM OF UNSP PART OF UNSP BRONCHUS OR LUNG (4) UTI (urinary tract infection) Code(s): N39.0 - URINARY TRACT INFECTION, SITE NOT SPECIFIED (5) TITO (acute kidney injury) Code(s): N17.9 - ACUTE KIDNEY FAILURE, UNSPECIFIED pna uti plan continue current mgmt rest as per primary team
--- NOTE | 2017-04-18 15:10 | PN ---
Progress Note (short form) - Note Progress Note: Pt seen and examined No overnight events. Cor: RSR, No murmurs, No gallops Lungs: Clear to P&A Abd: Soft, Normal bowel sounds, No organomegaly Ext:No significant edema Skin: No rashes, Integument intact Last Vital Signs Temp Pulse Resp BP Pulse Ox 99.6 F 80 20 130/77 94 L 04/18/17 14:40 04/18/17 14:40 04/18/17 14:40 04/18/17 14:40 04/18/17 10:38 Current Medications Generic Name Dose Route Start Last Admin Trade Name Freq PRN Reason Stop Dose Admin Aspirin 81 mg 04/12/17 22:00 04/18/17 09:35 Ecotrin - PO 81 mg BID MARILIN Administration Atorvastatin Calcium 20 mg 04/12/17 22:00 04/17/17 22:40 Lipitor - PO 20 mg HS MARILIN Administration Diphenhydramine HCl 25 mg 04/16/17 19:44 04/17/17 01:42 Benadryl - PO 25 mg Q4H PRN Administration ITCHING Fluticasone Propionate 2 spray 04/13/17 10:00 04/18/17 09:35 Flonase - NS 2 sprays DAILY MARILIN Administration Gabapentin 300 mg 04/13/17 14:00 04/18/17 13:49 Neurontin - PO 300 mg TID MARILIN Administration Sodium Chloride 1,000 mls @ 83 mls/hr 04/17/17 17:00 04/18/17 06:14 Normal Saline - IV 83 mls/hr ASDIR MARILIN Administration Lactobacillus Acidophilus 1 tab 04/17/17 10:00 04/18/17 09:34 Bacid - PO 1 tab DAILY MARILIN Administration Levothyroxine Sodium 25 mcg 04/13/17 07:00 04/18/17 06:13 Synthroid - PO 25 mcg DAILY@0700 MARILIN Administration Loratadine 10 mg 04/13/17 10:00 04/18/17 09:35 Claritin - PO 10 mg DAILY MARILIN Administration Metoprolol Tartrate 25 mg 04/12/17 22:00 04/18/17 09:35 Lopressor - PO 25 mg BID MARILIN Administration Mometasone Furoate 1 puff 04/13/17 10:00 04/18/17 09:33 Asmanex 220mcg - IH 1 puff DAILY MARILIN Administration Montelukast Sodium 10 mg 04/12/17 22:00 04/17/17 22:40 Singulair - PO 10 mg HS MARILIN Administration Pantoprazole Sodium 40 mg 04/13/17 10:00 04/18/17 09:35 Protonix - PO 40 mg DAILY MARILIN Administration Paroxetine HCl 20 mg/ 30 mg 04/13/17 10:00 04/18/17 09:36 Paroxetine HCl 10 mg PO 30 mg DAILY MARILIN Administration Sucralfate 1 gm 04/12/17 15:33 Carafate - PO DAILY PRN stomach pain Tiotropium [place] 1 puff 04/13/17 14:30 04/18/17 09:36 Spiriva - IH 1 puff DAILY MARILIN Administration Tramadol HCl 50 mg 04/17/17 22:42 04/18/17 09:36 Ultram - PO 50 mg Q6H PRN Administration PAIN CBC, BMP 04/18/17 09:10 04/18/17 09:10 61 y/o patient with 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 Admitted w/ AMS now resolved. CTH/MRI : No mets CT abdomen liver protocol: Hemangioma PET-CT : No evidence of malignancy F/u advised in the office, info given yesterday. Would also need pain management f.u along with PMD. rest of the management per team OK to d/c from Onc stand point Problem List - Problems (1) Liver mass Code(s): R16.0 - HEPATOMEGALY, NOT ELSEWHERE CLASSIFIED (2) Metabolic encephalopathy Code(s): G93.41 - METABOLIC ENCEPHALOPATHY (3) Small cell lung cancer in adult Code(s): C34.90 - MALIGNANT NEOPLASM OF UNSP PART OF UNSP BRONCHUS OR LUNG (4) Fall Code(s): W19.XXXA - UNSPECIFIED FALL, INITIAL ENCOUNTER (5) Pneumonia Code(s): J18.9 - PNEUMONIA, UNSPECIFIED ORGANISM
== END 2017-04-18 17:35 | disposition home or self-care (01) | DRG 193 ==
LOC: JER 08:50 → JERBED 14:25 → OBSVTOIN 15:45 → J6S 16:34
PROVIDERS: ADMIT Internal Medicine; ATTEND Internal Medicine
PROC: 0W9B3ZX Drainage of Left Pleural Cavity, Percutaneous Approach, Diagnostic (ICD-10-PCS; principal; 2017-04-15)
DX: J18.9 Pneumonia, unspecified organism (principal); G93.41 Metabolic encephalopathy; J96.01 Acute respiratory failure with hypoxia; C34.2 Malignant neoplasm of middle lobe, bronchus or lung; N17.9 Acute kidney failure, unspecified; N39.0 Urinary tract infection, site not specified; J90 Pleural effusion, not elsewhere classified; J98.11 Atelectasis; A04.7 Enterocolitis due to Clostridium difficile; R07.89 Other chest pain; R16.0 Hepatomegaly, not elsewhere classified; E87.6 Hypokalemia; E03.9 Hypothyroidism, unspecified; R04.0 Epistaxis; R40.0 Somnolence; K44.9 Diaphragmatic hernia without obstruction or gangrene; I12.9 Hypertensive chronic kidney disease with stage 1 through stage 4 chronic kidney disease, or unspecified chronic kidney disease; N18.9 Chronic kidney disease, unspecified; Z91.81 History of falling
CPT/HCPCS: 36415; 36600; 70450-TC; 70553-TC; 71010-TC; 71250-TC; 71275-TC; 74170-TC; 74176-TC; 76942; 80048; 80053; 81003; 82042; 82150; 82375; 82553; 82803; 82945; 83050; 83605; 83615; 83735; 83880; 84100; 84157; 84439; 84443; 84478; 84484; 85025; 85027; 85610; 85730; 86704; 86706; 86708; 86803; 86850; 86900; 86901; 87040; 87070; 87075; 87086; 87102; 87116; 87205; 87206; 87210; 87324; 87340; 87449; 88108; 88305-TC; 89050; 89051; 93005; 93010; 94761; 97116-GP; 97161-GP; 99285-25; A9576; G0378

== ENCOUNTER 2017-05-12 01:11 | Inpatient (IN) | payer OTHER, MEDICARE ==
[2017-05-12] MEDS ORDERED: NALOXONE HCL 0.4 MG/ML VIAL ONE ×2 (01:17→01:21)
[2017-05-12 01:21] LABS: BASOPHIL 0.4 % (0-2.0); EOSINOPHIL 4.8 % (0-4.5); MCH 30.4 pg (25.7-33.7); MCHC 32.9 g/dl (32.0-36.0); MEAN CELL VOLUME 92.3 fl (80-96); MEAN PLT VOLUME 7.7 fl (7.5-11.1); NEUTROPHILS 61.3 % (42.8-82.8); PLATELET COUNT 224 K/MM3 (134-434); RDW 14.5 % (11.6-15.6); WHITE BLOOD COUNT 6.8 K/mm3 (4.0-10.0)
[2017-05-12] MEDS ORDERED: NALOXONE HCL 0.4 MG/ML VIAL IVPUSH ONE ×2 (01:24→01:25)
--- NOTE | 2017-05-12 01:26 | PDOC ---
History of Present Illness - General Chief Complaint: Injury Stated Complaint: FALL IN BATHROOM Time Seen by Provider: 05/12/17 01:22 - History of Present Illness Initial Comments: 61 year old F with PMH of cerebral aneurysm (s/p multiple coil placements most recently within the last few months) presenting somnolent with decreased respiratory rate from her home. She states that she took her prescribed amount of Dilaudid 4 mg and went to bed then the family heard a thud in her room. They found her on the floor and called EMS. On arrival to the ED she was less responsive than usual, somnolent, and had a decreased respiratory rate. She was given 0.4 Narcan x 3 and eventually her RR increased to the mid teens from 8. Patient wasn't very intelligible so most of the history was obtained by family at bedside. They deny fevers, chills, nausea, vomiting, diarrhea, or constipation. 05/12/17 03:11 Past History - Past Medical History Allergies/Adverse Reactions: Allergies Allergy/AdvReac Type Severity Reaction Status Date / Time banana Allergy Verified 05/12/17 01:28 codeine Allergy Verified 05/12/17 01:28 corn syrup Allergy Verified 05/12/17 01:28 ethyl alcohol Allergy Verified 05/12/17 01:28 honey Allergy Swelling Verified 05/12/17 01:28 lorazepam [From Ativan] Allergy Verified 05/12/17 01:28 melon Allergy Swelling Verified 05/12/17 01:28 meperidine HCl [From Demerol] Allergy Verified 05/12/17 01:28 nylon Allergy Verified 05/12/17 01:28 onion Allergy Swelling Verified 05/12/17 01:28 peanut Allergy Verified 05/12/17 01:28 pecan nut Allergy Swelling Verified 05/12/17 01:28 pepper Allergy Difficulty Verified 05/12/17 01:28 Breathing shrimp Allergy Hives Verified 05/12/17 01:28 sulfamethoxazole Allergy Verified 05/12/17 01:28 [From Bactrim] trimethoprim [From Bactrim] Allergy Verified 05/12/17 01:28 walnut Allergy Swelling Verified 05/12/17 01:28 wool Allergy Verified 05/12/17 01:28 Home Medications: Ambulatory Orders Aspirin [Aspirin EC] 81 mg PO BID 04/12/17 Atorvastatin Ca [Lipitor] 20 mg PO HS 04/12/17 Cetirizine HCl [Zyrtec -] 10 mg PO DAILY 04/12/17 Dicyclomine HCl [Bentyl] 10 mg PO TID 04/12/17 Fluticasone Prop 0.05% Nasal [Flonase -] 2 spray NS DAILY 04/12/17 Levothyroxine [Synthroid -] 25 mcg PO DAILY 04/12/17 Metoprolol Tartrate 25 mg PO BID 04/12/17 Mometasone Furoate [Asmanex 220Mcg -] 1 inh IH DAILY 04/12/17 Montelukast Na [Singulair -] 10 mg PO HS 04/12/17 Pantoprazole Sodium [Protonix -] 40 mg PO DAILY 04/12/17 Paroxetine HCl [Paxil] 30 mg PO DAILY 04/12/17 Sucralfate [Carafate -] 1 gm PO DAILY PRN 04/12/17 Gabapentin [Neurontin -] 300 mg PO TID #90 cap 04/18/17 Lactobacillus Acidophilus [Bacid -] 1 tab PO DAILY #7 tab 04/18/17 Tiotropium [place] [Spiriva] 1 puff IH DAILY #1 inh 04/18/17 Tramadol HCl [Ultram -] 50 mg PO Q6H PRN #30 tablet MDD 400mg 04/18/17 Anemia: No Asthma: No Cancer: Yes (lung) Cardiac Disorders: No CVA: No COPD: No CHF: No Dementia: No GI Disorders: Yes HTN: Yes Hypercholesterolemia: Yes Liver Disease: No Seizures: No Thyroid Disease: Yes - Surgical History Abdominal Surgery: Yes (stomach/esophagus sx) Appendectomy: No Cardiac Surgery: No Cholecystectomy: No Lung Surgery: Yes (rt middle lobectomy) Neurologic Surgery: Yes (brain aneurysm) Orthopedic Surgery: No - Suicide/Smoking/Psychosocial Hx Smoking History: Never smoked Have you smoked in the past 12 months: No Hx Alcohol Use: No Drug/Substance Use Hx: No Substance Use Type: None Hx Substance Use Treatment: No Review of Systems - Review of Systems Able to Perform ROS?: No *Physical Exam - Physical Exam General Appearance: Yes: Nourished, Appropriately Dressed. No: Apparent Distress HEENT: positive: EOMI, RADHA (Pupils constricted but reactive to light. After narcan pupils dilated.), Normal ENT Inspection. negative: Normal Voice (Weak voice) Neck: positive: Trachea midline. negative: Tender Respiratory/Chest: positive: Lungs Clear, Normal Breath Sounds, Other ( Decreased respiratory rate on presentation prior to narcan administration.). negative: Chest Tender, Respiratory Distress Cardiovascular: positive: Regular Rhythm, Regular Rate Gastrointestinal/Abdominal: positive: Normal Bowel Sounds, Flat, Soft. negative : Tender Extremity: positive: Normal Capillary Refill, Normal Inspection Integumentary: positive: Normal Color, Dry, Warm Neurologic: negative: Fully Oriented (Somnolent but able to be arroused after given narcan), Alert ED Treatment Course - LABORATORY CBC & Chemistry Diagram: 05/12/17 01:15 05/12/17 02:40 - ADDITIONAL ORDERS Additional order review: 05/12/17 01:15 RBC 3.21 L MCV 92.3 MCHC 32.9 RDW 14.5 MPV 7.7 Neutrophils % 61.3 Lymphocytes % 26.4 D Monocytes % 7.1 Eosinophils % 4.8 H Basophils % 0.4 Medical Decision Making - Medical Decision Making 61 year old female presenting with depressed respiratory rate and altered mental status. Slightly better after 2 x Narcan 0.4 MG but became somnolent again. Labs roughly WNL with the exception of K 3.1. Will admit tele obs (non- cardiac) for AMS and depressed respiratory rate workup. Per family including POA , the patient is DNR/ DNI but can reconfirm in the day time. 05/12/17 04:[address] Goss and will admit the patient for tele. 05/12/17 04:55 *DC/Admit/Observation/Transfer Diagnosis at time of Disposition: Respiratory rate decreased Altered mental status Qualifiers: Altered mental status type: somnolence Qualified Code(s): R40.0 - Somnolence; R40.0 - Somnolence - Discharge Dispostion Condition at time of disposition: Stable Admit: Yes
[2017-05-12 01:28] VITALS: BMI 42.9
--- NOTE | 2017-05-12 01:33 | PDOC ---
History of Present Illness - General Chief Complaint: Injury Stated Complaint: FALL IN BATHROOM Time Seen by Provider: 05/12/17 01:22 History Source: Patient Exam Limitations: No Limitations - History of Present Illness Initial Comments: 05/12/17 01:35 61y F hx of SCC (R lng, stage 3a, sp chemo and r middle lobectomy), s/p coiling of brain aneurysm, presents with AMS - per EMS, the pt took a dilaudid last night as she normally does for pain, and then the family heard the patient fall. The pt was found somnolent by EMS, minimally responsive. On arrival the pt was somnolent, saturating around 80, rr of 8, pupils approx 2mm b/l reactive to light. Past History - Past Medical History Allergies/Adverse Reactions: Allergies Allergy/AdvReac Type Severity Reaction Status Date / Time banana Allergy Verified 05/12/17 01:28 codeine Allergy Verified 05/12/17 01:28 corn syrup Allergy Verified 05/12/17 01:28 ethyl alcohol Allergy Verified 05/12/17 01:28 honey Allergy Swelling Verified 05/12/17 01:28 lorazepam [From Ativan] Allergy Verified 05/12/17 01:28 melon Allergy Swelling Verified 05/12/17 01:28 meperidine HCl [From Demerol] Allergy Verified 05/12/17 01:28 nylon Allergy Verified 05/12/17 01:28 onion Allergy Swelling Verified 05/12/17 01:28 peanut Allergy Verified 05/12/17 01:28 pecan nut Allergy Swelling Verified 05/12/17 01:28 pepper Allergy Difficulty Verified 05/12/17 01:28 Breathing shrimp Allergy Hives Verified 05/12/17 01:28 sulfamethoxazole Allergy Verified 05/12/17 01:28 [From Bactrim] trimethoprim [From Bactrim] Allergy Verified 05/12/17 01:28 walnut Allergy Swelling Verified 05/12/17 01:28 wool Allergy Verified 05/12/17 01:28 Home Medications: Ambulatory Orders Aspirin [Aspirin EC] 81 mg PO BID 04/12/17 Atorvastatin Ca [Lipitor] 20 mg PO HS 04/12/17 Cetirizine HCl [Zyrtec -] 10 mg PO DAILY 04/12/17 Dicyclomine HCl [Bentyl] 10 mg PO TID 04/12/17 Fluticasone Prop 0.05% Nasal [Flonase -] 2 spray NS DAILY 04/12/17 Levothyroxine [Synthroid -] 25 mcg PO DAILY 04/12/17 Metoprolol Tartrate 25 mg PO BID 04/12/17 Mometasone Furoate [Asmanex 220Mcg -] 1 inh IH DAILY 04/12/17 Montelukast Na [Singulair -] 10 mg PO HS 04/12/17 Pantoprazole Sodium [Protonix -] 40 mg PO DAILY 04/12/17 Paroxetine HCl [Paxil] 30 mg PO DAILY 04/12/17 Sucralfate [Carafate -] 1 gm PO DAILY PRN 04/12/17 Gabapentin [Neurontin -] 300 mg PO TID #90 cap 04/18/17 Lactobacillus Acidophilus [Bacid -] 1 tab PO DAILY #7 tab 04/18/17 Tiotropium [place] [Spiriva] 1 puff IH DAILY #1 inh 04/18/17 Tramadol HCl [Ultram -] 50 mg PO Q6H PRN #30 tablet MDD 400mg 04/18/17 Anemia: No Asthma: No Cancer: Yes (lung) Cardiac Disorders: No CVA: No COPD: No CHF: No Dementia: No GI Disorders: Yes HTN: Yes Hypercholesterolemia: Yes Liver Disease: No Seizures: No Thyroid Disease: Yes - Surgical History Abdominal Surgery: Yes (stomach/esophagus sx) Appendectomy: No Cardiac Surgery: No Cholecystectomy: No Lung Surgery: Yes (rt middle lobectomy) Neurologic Surgery: Yes (brain aneurysm) Orthopedic Surgery: No - Suicide/Smoking/Psychosocial Hx Smoking History: Never smoked Have you smoked in the past 12 months: No Hx Alcohol Use: No Drug/Substance Use Hx: No Substance Use Type: None Hx Substance Use Treatment: No Review of Systems - Review of Systems Able to Perform ROS?: No *Physical Exam - Physical Exam Comments: 05/12/17 02:51 GENERAL: The patient is somnolent, lethargic, responsive to repetitive verbal command, HEAD: Normocephalic, atraumatic. EYES: extraocular movements intact, jpupils 2mm and reactive to light ENT: Normal voice, Moist mucous membranes. NECK: Normal range of motion, supple LUNGS: Breath sounds equal, clear to auscultation bilaterally. No wheezes, no rhonchi, no rales. HEART: Regular rate and rhythm, normal S1 and S2 without murmur, rub or gallop. ABDOMEN: Soft, nontender, normoactive bowel sounds. No guarding, no rebound. . No CVA tenderness EXTREMITIES: Normal range of motion, no edema. NEUROLOGICAL: No facial assymetry, moving all 4 extremities spontaenously and symmetrically PSYCH: Normal mood, normal affect. SKIN: Warm, Dry, normal turgor, Back: No midline tenderness to the cervical, thoracic or lumbar spine Musculoskelatal: FROM of b/l shoulders, elbows, wrist. FROM of hips, knees, ankles - No signs of ecchymosis, erythema, or crepitus noted on palpation extremities, chest wall, clavicals, ribs, back. Heart Score/ECG Review - ECG Impressions Comment:: 05/12/17 06:41 Twelve-lead EKG was performed and reviewed by me. There is normal sinus rhythm with a normal rate. rate of 77 1st degree avl block q wave in III, twi in III ED Treatment Course - LABORATORY CBC & Chemistry Diagram: 05/12/17 01:15 05/12/17 02:40 - ADDITIONAL ORDERS Additional order review: 05/12/17 01:15 RBC 3.21 L MCV 92.3 MCHC 32.9 RDW 14.5 MPV 7.7 Neutrophils % 61.3 Lymphocytes % 26.4 D Monocytes % 7.1 Eosinophils % 4.8 H Basophils % 0.4 - RADIOLOGY Radiology Studies Ordered: Category Date Time Status HEAD CT WITHOUT CONTRAST [CT] Stat CT Scan 05/12/17 01:25 Ordered Medical Decision Making - Medical Decision Making 05/12/17 01:35 I was immediately bedside to evaluate the patient. pts BGM initially suspected to be possibly opiate overdose/effect - pt was given 0.4mg of narcan with minimal effect of her mental status, but increased RR to 12-16. pt was given another 0.4 of narcan with a bit more arousal and improvement of her mental status no signs of trauma on exam. no pain on ROM of her extremities will obtain ct head due to trauma and AMS will ck UA as family notes pt was having decreased urinary output will ck labs/lytes/tox screen CRITICAL CARE DOCUMENTATION: I spent ~35 minutes of Critical Care time, excluding separately billable procedures, involving high complexity decision making to assess, manipulate and support vital system function(s) to treat single or multiple vital organ system failure and/or to prevent further life threatening deterioration of the patient' s condition. 05/12/17 02:55 no acute changes on cxr ct head neg labs reviewed unremarkble pt still somnolent - suspect pt has some benzos in addition to opiods to explain partial effect by narcan pt will be admitted for further evaluation of AMS case was d/w PMD by resident dieudonne crowe with admission and observation Case discussed in detail with admitting physician including history, physical exam and ancillary studies. Admitting physician has assumed care for the patient, will follow all pending diagnostics and will complete the evaluation and treatment. *DC/Admit/Observation/Transfer Diagnosis at time of Disposition: Respiratory rate decreased Altered mental status, unspecified Qualifiers: Altered mental status type: somnolence Qualified Code(s): R40.0 - Somnolence - Discharge Dispostion Condition at time of disposition: Stable - Referrals
--- NOTE | 2017-05-12 01:36 | PDOC ---
Attending Attestation - Resident Resident Name: SheldonTrishasheilacarrie - ED Attending Attestation I have performed the following: I have examined & evaluated the patient, The case was reviewed & discussed with the resident, I agree w/resident's findings & plan, Exceptions are as noted - HPI HPI: 05/12/17 01:36 61y F hx of SCC (R lng, stage 3a, sp chemo and r middle lobectomy), s/p coiling of brain aneurysm, presents with AMS - per EMS, the pt took a dilaudid last night as she normally does for pain, and then the family heard the patient fall. The pt was found somnolent by EMS, minimally responsive. On arrival the pt was somnolent, saturating around 80, rr of 8, pupils approx 2mm b/l reactive to light. I was immediately bedside to evaluate the patient. pts BGM initially suspected to be possibly opiate overdose/effect - pt was given 0.4mg of narcan with minimal effect of her mental status, but increased RR to 12-16. pt was given another 0.4 of narcan with a bit more arousal and improvement of her mental status no signs of trauma on exam. no pain on ROM of her extremities will obtain ct head due to trauma and AMS will ck UA as family notes pt was having decreased urinary output will ck labs/lytes/tox screen - Physicial Exam PE: 05/12/17 08:08 see above - Medical Decision Making 05/12/17 08:08 see above
[2017-05-12] MEDS ORDERED: SODIUM CHLORIDE 1,000 ML IV ONE (03:08)
[2017-05-12 03:17] LABS: VENOUS PH 7.38 (7.32-7.42)
[2017-05-12 03:27] LABS: ALBUMIN 3.3 g/dl (3.4-5.0); ANION GAP 12 (8-16); BILIRUBIN,TOTAL 0.4 mg/dL (0.2-1.0); CALCIUM 8.8 mg/dL (8.5-10.1); CO2 29 mmol/L (21-32); CREATININE 1.6 mg/dL (0.55-1.02); GLUCOSE,RANDOM 111 mg/dL (74-106); SGOT/AST 19 U/L (15-37); SGPT/ALT 19 U/L (12-78); TOT PROT 6.1 g/dl (6.4-8.2)
[2017-05-12 03:30] LABS: ALK PHOS 128 U/L (45-117); CPK 141 IU/L (26-192); TROPONIN I < 0.02 ng/ml (0.00-0.05)
[2017-05-12] MEDS ORDERED: POTASSIUM CHLORIDE TABS 20 MEQ TABLET.ER (FP) PO ONE ×2 (03:39→16:00)
[2017-05-12] MEDS ORDERED: KCL 10 MEQ IVPB 100 ML IVPB ONE (03:56)
[2017-05-12] MEDS ORDERED: KCL 10 MEQ IVPB 100 ML IVPB SCH (04:00)
[2017-05-12 05:10] LABS: URINE APPEARANCE CLEAR; URINE BILIRUBIN NEGATIVE (NEGATIVE); URINE BLOOD NEGATIVE (NEGATIVE); URINE COLOR LTYELLOW; URINE GLUCOSE (UA) NEGATIVE (NEGATIVE); URINE KETONE NEGATIVE (NEGATIVE); URINE NITRITE NEGATIVE (NEGATIVE); URINE PROTEIN NEGATIVE (NEGATIVE); URINE UROBILINOGEN NEGATIVE mg/dL (0.2-1.0)
[2017-05-12 05:23] LABS: URINE MARIJUANA THC NEGATIVE ng/ml (CUTOFF=50)
[2017-05-12] MEDS ORDERED: ACETAMINOPHEN 325 MG TABLET (FP) PO PRN (07:40)
[2017-05-12] MEDS ORDERED: ONDANSETRON 4 MG/2 ML VIAL IVPB PRN (07:40)
[2017-05-12] MEDS ORDERED: SUCRALFATE 1 GM TABLET (FP) PO PRN (07:43)
[2017-05-12] MEDS ORDERED: SODIUM CHLORIDE 1,000 ML IV SCH (07:45)
[2017-05-12 11:23] LABS: URINE LEUK ESTERASE Negative (NEGATIVE)
[2017-05-12] MEDS ORDERED: PARoxetine HCL 10 MG TABLET (FP) ONE (12:02)
[2017-05-12] MEDS: LORATADINE 10 MG TABLET PO SCH (12:07)
[2017-05-12] MEDS: LEVOTHYROXINE NA 25 MCG TABLET (FP) PO SCH (12:07)
[2017-05-12] MEDS: METOPROLOL TARTRATE 25 MG TABLET (FP) PO SCH ×2 (12:07→22:30)
[2017-05-12] MEDS: PANTOPRAZOLE 40 MG TABLET (FP) PO SCH (12:08)
[2017-05-12] MEDS: ASPIRIN COATED 81 MG TABLET.EC PO SCH ×2 (12:08→22:30)
[2017-05-12] MEDS: PARoxetine HCL 30 MG TABLET PO SCH (12:10)
--- NOTE | 2017-05-12 15:48 | EKG ---
Test Reason : Blood Pressure : / mmHG Vent. Rate : 077 BPM Atrial Rate : 077 BPM P-R Int : 214 ms QRS Dur : 106 ms QT Int : 416 ms P-R-T Axes : 049 029 001 degrees QTc Int : 470 ms SINUS RHYTHM WITH 1ST DEGREE A-V BLOCK ST-T ABNORMALITIES IN III aVF AND V2-V3, WHEN COMPARED WITH ECG OF 12-APR-2017 09:03, [place] INTERVAL HAS INCREASED OTHER CHANGES ABOVE. REPEAT EKG IF CLINICALLY INDICATED Confirmed by KAREN NIELSEN MD ([id number]) on 05/12/2017 3:48:34 PM Referred By: Confirmed By:KAREN NIELSEN MD
[2017-05-12] MEDS: DEXTROSE 5%-NORMAL SALINE 1,000 ML IV SCH (16:00)
--- NOTE | 2017-05-12 16:11 | HP ---
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 She states that she took her prescribed amount of pain meds went to bed then the family heard a thud in her room. They found her on the floor and called EMS. On arrival to the ED she was less responsive than usual, somnolent, and had a decreased respiratory rate. She was given 0.4 Narcan x 3 and eventually her RR increased to above 10 from 8. Patient seen and examined. Back to baseline mental status. She reports taking 2 tabs of dilaudid 4, Valium 10 mg and her prescribed dose of gabapentin. She does not remember what happened last night. She is seeing Dr. Mitchell for pain management. C/O Pain all over the body and lower abdomen. Aggravated by turning or moving. History Source: Patient, Medical Record Limitations to Obtaining History: Clinical Condition - Past Medical History Pulmonary: Yes: Cancer, Pulmonary Embolus Gastrointestinal: Yes: Hiatal Hernia ...: No Heme/Onc: Yes: Other (small cell lung cancer) - Past Surgical History Past Surgical History: Yes: Hernia Repair - Smoking History Smoking history: Former smoker Have you smoked in the past 12 months: No - Alcohol/Substance Use Hx Alcohol Use: No - Social History ADL: Family Assistance Home Medications - Allergies Allergies/Adverse Reactions: Allergies Allergy/AdvReac Type Severity Reaction Status Date / Time banana Allergy Verified 05/12/17 01:28 codeine Allergy Verified 05/12/17 01:28 corn syrup Allergy Verified 05/12/17 01:28 ethyl alcohol Allergy Verified 05/12/17 01:28 honey Allergy Swelling Verified 05/12/17 01:28 lorazepam [From Ativan] Allergy Verified 05/12/17 01:28 melon Allergy Swelling Verified 05/12/17 01:28 meperidine HCl [From Demerol] Allergy Verified 05/12/17 01:28 nylon Allergy Verified 05/12/17 01:28 onion Allergy Swelling Verified 05/12/17 01:28 peanut Allergy Verified 05/12/17 01:28 pecan nut Allergy Swelling Verified 05/12/17 01:28 pepper Allergy Difficulty Verified 05/12/17 01:28 Breathing shrimp Allergy Hives Verified 05/12/17 01:28 sulfamethoxazole Allergy Verified 05/12/17 01:28 [From Bactrim] trimethoprim [From Bactrim] Allergy Verified 05/12/17 01:28 walnut Allergy Swelling Verified 05/12/17 01:28 wool Allergy Verified 05/12/17 01:28 - Home Medications Home Medications: Ambulatory Orders Aspirin [Aspirin EC] 81 mg PO BID 04/12/17 Atorvastatin Ca [Lipitor] 20 mg PO HS 04/12/17 Cetirizine HCl [Zyrtec -] 10 mg PO DAILY 04/12/17 Dicyclomine HCl [Bentyl] 10 mg PO TID 04/12/17 Fluticasone Prop 0.05% Nasal [Flonase -] 2 spray NS DAILY 04/12/17 Levothyroxine [Synthroid -] 25 mcg PO DAILY 04/12/17 Metoprolol Tartrate 25 mg PO BID 04/12/17 Mometasone Furoate [Asmanex 220Mcg -] 1 inh IH DAILY 04/12/17 Montelukast Na [Singulair -] 10 mg PO HS 04/12/17 Pantoprazole Sodium [Protonix -] 40 mg PO DAILY 04/12/17 Paroxetine HCl [Paxil] 30 mg PO DAILY 04/12/17 Sucralfate [Carafate -] 1 gm PO DAILY PRN 04/12/17 Gabapentin [Neurontin -] 300 mg PO TID #90 cap 04/18/17 Lactobacillus Acidophilus [Bacid -] 1 tab PO DAILY #7 tab 04/18/17 Tiotropium [place] [Spiriva] 1 puff IH DAILY #1 inh 04/18/17 Tramadol HCl [Ultram -] 50 mg PO Q6H PRN #30 tablet MDD 400mg 04/18/17 Review of Systems - Review of Systems Constitutional: reports: Weakness Eyes: reports: No Symptoms HENT: reports: No Symptoms Neck: reports: No Symptoms Cardiovascular: reports: No Symptoms Respiratory: reports: No Symptoms Gastrointestinal: reports: No Symptoms Genitourinary: reports: No Symptoms Musculoskeletal: reports: Back Pain, Muscle Pain Neurological: reports: Confusion, Weakness Physical Examination Vital Signs: Vital Signs Temperature 98.6 F 05/12/17 13:41 Pulse Rate 98 H 05/12/17 13:41 Respiratory Rate 16 05/12/17 13:41 Blood Pressure 136/84 05/12/17 13:41 O2 Sat by Pulse Oximetry (%) 95 05/12/17 11:03 Constitutional: Yes: Anxious Eyes: Yes: Conjunctiva Clear, EOM Intact, PERRL HENT: Yes: Atraumatic, Normocephalic Neck: Yes: Supple, Trachea Midline Cardiovascular: Yes: Regular Rate and Rhythm Respiratory: Yes: Regular (bl lung base), Diminished Gastrointestinal: Yes: Normal Bowel Sounds ...Rectal Exam: Yes: Deferred Musculoskeletal: Yes: Back Pain, Joint Stiffness, Muscle Pain, Muscle Weakness Edema: No Peripheral Pulses WNL: Yes Neurological: Yes: Lethargy ...Motor Strength: WNL Imaging - Results X-ray: Report Reviewed Cat Scan: Report Reviewed Problem List - Problems (1) Altered mental status, unspecified Assessment/Plan: Improved. S/P Narcan x 3 doses in the ER. Back to baseline mental status. Patient is taking multiple medications causing altered mental status. Similar presentation last admission as well. She is taking Dilaudid 4 mg daily, valium 10 mg daily and neurontin at home. She was transitioned to tramadol last admission but says it does not do anything. Under Dr. Paula juarez as outpatient. Discussed in detail with the patient. Will hold meds causing drowsiness for the time being. Tramadol for pain if needed. Code(s): R41.82 - ALTERED MENTAL STATUS, UNSPECIFIED Qualifiers: Altered mental status type: somnolence Qualified Code(s): R40.0 - Somnolence; R40.0 - Somnolence (2) Fall Assessment/Plan: Secondary to above. CT Head: Nil acute. Code(s): W19.XXXA - UNSPECIFIED FALL, INITIAL ENCOUNTER (3) TITO (acute kidney injury) Assessment/Plan: Continue IV fluids. Code(s): N17.9 - ACUTE KIDNEY FAILURE, UNSPECIFIED (4) Respiratory rate decreased Assessment/Plan: Improved. Code(s): R06.89 - OTHER ABNORMALITIES OF BREATHING (5) SCC (squamous cell carcinoma of lung) Assessment/Plan: Under care of Dr. Hernesto cortez. Code(s): C34.90 - MALIGNANT NEOPLASM OF UNSP PART OF UNSP BRONCHUS OR LUNG
[2017-05-12] MEDS: MOMETASONE FUROATE 220 MCG/IH INHALER IH SCH (18:58)
[2017-05-12] MEDS: TIOTROPIUM BROMIDE 18 MCG/INH (DEVICE W/ 5 CAPSULES) IH SCH (18:58)
[2017-05-12] MEDS ORDERED: PT OWN MED DRAWER 7, Y5N ONE (22:23)
[2017-05-12] MEDS: ATORVASTATIN CA 20 MG TABLET (FP) PO SCH (22:29)
[2017-05-12] MEDS: MONTELUKAST NA 10 MG TABLET PO SCH (22:30)
[2017-05-13] MEDS: LEVOTHYROXINE NA 25 MCG TABLET (FP) PO SCH (06:07)
[2017-05-13 06:53] LABS: BASOPHIL 0.3 % (0-2.0); EOSINOPHIL 4.5 % (0-4.5); MCH 30.2 pg (25.7-33.7); MCHC 32.6 g/dl (32.0-36.0); MEAN CELL VOLUME 92.7 fl (80-96); MEAN PLT VOLUME 7.6 fl (7.5-11.1); NEUTROPHILS 63.6 % (42.8-82.8); PLATELET COUNT 178 K/MM3 (134-434); RDW 14.6 % (11.6-15.6); WHITE BLOOD COUNT 5.9 K/mm3 (4.0-10.0)
[2017-05-13 07:17] LABS: ALBUMIN 2.8 g/dl (3.4-5.0); ANION GAP 5 (8-16); CALCIUM 8.3 mg/dL (8.5-10.1); CO2 32 mmol/L (21-32); GLUCOSE,RANDOM 107 mg/dL (74-106)
[2017-05-13 07:20] LABS: ALK PHOS 113 U/L (45-117); BILIRUBIN,TOTAL 0.3 mg/dL (0.2-1.0); CREATININE 1.3 mg/dL (0.55-1.02); SGOT/AST 15 U/L (15-37); SGPT/ALT 16 U/L (12-78); TOT PROT 5.4 g/dl (6.4-8.2)
[2017-05-13] MEDS ORDERED: PARoxetine HCL 10 MG TABLET (FP) ONE (09:20)
[2017-05-13] MEDS ORDERED: PT OWN MED DRAWER 7, Y5N ONE ×2 (09:21→21:42)
[2017-05-13] MEDS: PANTOPRAZOLE 40 MG TABLET (FP) PO SCH (09:25)
[2017-05-13] MEDS: LORATADINE 10 MG TABLET PO SCH (09:25)
[2017-05-13] MEDS: METOPROLOL TARTRATE 25 MG TABLET (FP) PO SCH ×2 (09:25→21:44)
[2017-05-13] MEDS: MOMETASONE FUROATE 220 MCG/IH INHALER IH SCH (09:26)
[2017-05-13] MEDS: ASPIRIN COATED 81 MG TABLET.EC PO SCH ×2 (09:26→21:44)
[2017-05-13] MEDS: TIOTROPIUM BROMIDE 18 MCG/INH (DEVICE W/ 5 CAPSULES) IH SCH (09:27)
[2017-05-13] MEDS: PARoxetine HCL 30 MG TABLET PO SCH (09:35)
--- NOTE | 2017-05-13 12:36 | PN ---
Physical Exam: SUBJECTIVE: Patient seen and examined at bedside. OBJECTIVE: Vital Signs Period Temp Pulse Resp BP Sys/Sloan Pulse Ox Last 24 Hr 97.4 F-99.1 F 74-98 16-16 91-152/51-84 95-95 GENERAL: The patient is awake, alert, and fully oriented, in no acute distress. HEAD: Normal with no signs of trauma. EYES: PERRL, extraocular movements intact, sclera anicteric, conjunctiva clear. No ptosis. LUNGS: Breath sounds equal, clear to auscultation bilaterally, no wheezes, no crackles, no accessory muscle use. HEART: Regular rate and rhythm, S1, S2 without murmur, rub or gallop. ABDOMEN: Soft, nontender, nondistended, normoactive bowel sounds, no guarding, no rebound, no hepatosplenomegaly, no masses. EXTREMITIES: 2+ pulses, warm, well-perfused, no edema. NEUROLOGICAL: Cranial nerves II through XII grossly intact. Normal speech, gait not observed. SKIN: Warm, dry, normal turgor, no rashes or lesions noted. Laboratory Results - last 24 hr 05/12/17 05/12/17 05/13/17 14:49 15:09 05:45 WBC 5.9 RBC 3.11 L Hgb 9.4 L Hct 28.8 L MCV 92.7 MCH 30.2 MCHC 32.6 RDW 14.6 Plt Count 178 D MPV 7.6 Neutrophils % 63.6 Lymphocytes % 25.3 Monocytes % 6.3 Eosinophils % 4.5 Basophils % 0.3 Sodium Potassium Chloride Carbon Dioxide Anion Gap BUN Creatinine Creat Clearance w eGFR POC Glucometer 47 77 Random Glucose Calcium Total Bilirubin AST ALT Alkaline Phosphatase Total Protein Albumin 05/13/17 05:45 WBC RBC Hgb Hct MCV MCH MCHC RDW Plt Count MPV Neutrophils % Lymphocytes % Monocytes % Eosinophils % Basophils % Sodium 143 Potassium 3.5 Chloride 106 Carbon Dioxide 32 Anion Gap 5 L BUN 13 D Creatinine 1.3 H Creat Clearance w eGFR 41.92 POC Glucometer Random Glucose 107 H Calcium 8.3 L Total Bilirubin 0.3 D AST 15 D ALT 16 Alkaline Phosphatase 113 Total Protein 5.4 L Albumin 2.8 L Active Medications Generic Name Dose Route Start Last Admin Trade Name Freq PRN Reason Stop Dose Admin Acetaminophen 650 mg 05/12/17 07:40 Tylenol - PO Q4H PRN FEVER OR PAIN Aspirin 81 mg 05/12/17 10:00 05/13/17 09:26 Ecotrin - PO 81 mg BID MARILIN Administration Atorvastatin Calcium 20 mg 05/12/17 22:00 05/12/17 22:29 Lipitor - PO 20 mg HS MARILIN Administration Dextrose/Sodium Chloride 1,000 mls @ 50 mls/hr 05/12/17 16:00 05/12/17 16:00 D5-Ns - IV 50 mls/hr ASDIR MARILIN Administration Levothyroxine Sodium 25 mcg 05/12/17 08:15 05/13/17 06:07 Synthroid - PO 25 mcg DAILY@0700 MARILIN Administration Loratadine 10 mg 05/12/17 10:00 05/13/17 09:25 Claritin - PO 10 mg DAILY MARILIN Administration Metoprolol Tartrate 25 mg 05/12/17 10:00 05/13/17 09:25 Lopressor - PO 25 mg BID MARILIN Administration Mometasone Furoate 1 puff 05/12/17 10:00 05/13/17 09:26 Asmanex 220mcg - IH 1 puff DAILY MARILIN Administration Montelukast Sodium 10 mg 05/12/17 22:00 05/12/17 22:30 Singulair - PO 10 mg HS MARILIN Administration Ondansetron HCl 4 mg 05/12/17 07:40 Zofran Injection IVPB Q6H PRN NAUSEA Pantoprazole Sodium 40 mg 05/12/17 10:00 05/13/17 09:25 Protonix - PO 40 mg DAILY MARILIN Administration Paroxetine HCl 30 mg 05/12/17 10:00 05/13/17 09:35 Paxil - PO Not Given DAILY MARILIN Sucralfate 1 gm 05/12/17 07:43 Carafate - PO DAILY PRN stomach pain Tiotropium [place] 1 puff 05/12/17 10:00 05/13/17 09:27 Spiriva - IH 1 puff DAILY MARILIN Administration ASSESSMENT/PLAN: A: 61yo woman with SSC with fall and AMS which is currently resolved P: #AMS - Resolved- likely from hypoglycemia vs medication - hold agents that effect mental status - FS q6h - CTH(-) - NH4 #SSC - continue care as outpt with Dr. Eric #Asthma - spiriva - singulair - asmanex #Hypothroidism - synthroid #CAD - ASA #HLD - Lipitor #Depression - Paxil #F/E/N - regular diet - replete prn #PPX - OOB Dispo- requires continued observation of acute medical conditions Visit type - Emergency Visit Emergency Visit: Yes ED Registration Date: 05/12/17 Care time: The patient presented to the Emergency Department on the above date and was hospitalized for further evaluation of their emergent condition. - New Patient This patient is new to me today: Yes Date on this admission: 05/13/17 - Critical Care Critical Care patient: No
[2017-05-13] MEDS ORDERED: FLU VACCINE QUAD 60 MCG/0.5 ML (MDV 17-18) IM ONE (15:00)
[2017-05-13] MEDS ORDERED: traMADol HCL 50 MG TABLET PO PRN (15:44)
[2017-05-13] MEDS: DEXTROSE 5%-NORMAL SALINE 1,000 ML IV SCH (17:35)
[2017-05-13] MEDS: ATORVASTATIN CA 20 MG TABLET (FP) PO SCH (21:44)
[2017-05-13] MEDS: MONTELUKAST NA 10 MG TABLET PO SCH (21:44)
[2017-05-14 01:54] VITALS: PULSE 76
[2017-05-14] MEDS: LEVOTHYROXINE NA 25 MCG TABLET (FP) PO SCH (06:35)
[2017-05-14 06:46] VITALS: BP 112/72; TEMP 98.7
[2017-05-14 07:37] LABS: BASOPHIL 0.4 % (0-2.0); EOSINOPHIL 5.4 % (0-4.5); MCH 29.9 pg (25.7-33.7); MCHC 32.5 g/dl (32.0-36.0); MEAN CELL VOLUME 91.9 fl (80-96); MEAN PLT VOLUME 7.3 fl (7.5-11.1); NEUTROPHILS 68.2 % (42.8-82.8); PLATELET COUNT 174 K/MM3 (134-434); RDW 14.5 % (11.6-15.6); WHITE BLOOD COUNT 5.4 K/mm3 (4.0-10.0)
[2017-05-14 07:54] LABS: ALBUMIN 2.6 g/dl (3.4-5.0); ANION GAP 8 (8-16); CALCIUM 7.9 mg/dL (8.5-10.1); CO2 28 mmol/L (21-32); GLUCOSE,RANDOM 100 mg/dL (74-106)
[2017-05-14 07:58] LABS: ALK PHOS 110 U/L (45-117); BILIRUBIN,TOTAL 0.4 mg/dL (0.2-1.0); CREATININE 1.1 mg/dL (0.55-1.02); SGOT/AST 13 U/L (15-37); SGPT/ALT 18 U/L (12-78)
[2017-05-14] MEDS ORDERED: PARoxetine HCL 10 MG TABLET (FP) ONE (09:20)
[2017-05-14] MEDS: LORATADINE 10 MG TABLET PO SCH (09:23)
[2017-05-14] MEDS: ASPIRIN COATED 81 MG TABLET.EC PO SCH (09:23)
[2017-05-14] MEDS: PANTOPRAZOLE 40 MG TABLET (FP) PO SCH (09:23)
[2017-05-14] MEDS: METOPROLOL TARTRATE 25 MG TABLET (FP) PO SCH (09:23)
[2017-05-14] MEDS: PARoxetine HCL 30 MG TABLET PO SCH (09:25)
[2017-05-14] MEDS ORDERED: PT OWN MED DRAWER 7, Y5N ONE (09:27)
[2017-05-14] MEDS: TIOTROPIUM BROMIDE 18 MCG/INH (DEVICE W/ 5 CAPSULES) IH SCH (09:29)
[2017-05-14] MEDS: MOMETASONE FUROATE 220 MCG/IH INHALER IH SCH (09:29)
[2017-05-14] MEDS ORDERED: POTASSIUM CHLORIDE TABS 20 MEQ TABLET.ER (FP) PO ONE (13:38)
--- NOTE | 2017-05-14 13:42 | DS ---
Physical Examination Vital Signs: Vital Signs Temperature 37.1 C 05/14/17 06:00 Pulse Rate 76 05/14/17 06:00 Respiratory Rate 18 05/14/17 09:00 Blood Pressure 112/72 05/14/17 06:00 O2 Sat by Pulse Oximetry (%) 94 L 05/14/17 09:00 Constitutional: Yes: No Distress, Calm, Obese Cardiovascular: Yes: Regular Rate and Rhythm. No: Gallop, Murmur, Rub Respiratory: Yes: Regular, CTA Bilaterally. No: Rales, Rhonchi, Wheezes Gastrointestinal: Yes: Normal Bowel Sounds, Soft. No: Distention, Tenderness Extremities: Yes: WNL Edema: No Labs: CBC, BMP 05/14/17 06:00 05/14/17 06:00 Discharge Summary Reason For Visit: AMS, UNSPECIFIED, RESPIRATORY RATE DECREASED Current Active Problems TITO (acute kidney injury) (Acute) Acute hypoxemic respiratory failure (Acute) Altered mental status, unspecified (Acute) C. difficile diarrhea (Acute) CKD (chronic kidney disease) (Acute) Chest pain (Acute) Encephalopathy (Acute) Fall (Acute) Hypokalemia (Acute) Liver mass (Acute) Lung cancer (Acute) Metabolic encephalopathy (Acute) Pneumonia (Acute) Respiratory rate decreased (Acute) SCC (squamous cell carcinoma of lung) (Acute) Small cell lung cancer in adult (Acute) UTI (urinary tract infection) (Acute) Hospital Course: (1) Altered mental status, unspecified Code(s): R41.82 - ALTERED MENTAL STATUS, UNSPECIFIED Qualifiers: Altered mental status type: somnolence Qualified Code(s): R40.0 - Somnolence; R40.0 - Somnolence (2) Fall Code(s): W19.XXXA - UNSPECIFIED FALL, INITIAL ENCOUNTER (3) TITO (acute kidney injury) Code(s): N17.9 - ACUTE KIDNEY FAILURE, UNSPECIFIED (4) Respiratory rate decreased Code(s): R06.89 - OTHER ABNORMALITIES OF BREATHING (5) SCC (squamous cell carcinoma of lung) Code(s): C34.90 - MALIGNANT NEOPLASM OF UNSP PART OF UNSP BRONCHUS OR LUNG Ms Chopra is a very pleasant 61 year old female with history of squamous cell carcinoma of the lung who comes in with altered mental status. She says she did not eat a lot during the day and was also exposed to fumes from a car. She took her medication and became altered. She presented to the ED and was given narcan with improvement of her mental status. She is currently back to baseline and stable for discharge. She should follow up with her pain management doctor for possible adjustment of regimen if needed. Her potassium was replaced today prior to discharge. She is safe for discharge home. 33 minutes spent in preparation of this discharge Condition: Stable - Instructions Diet, Activity, Other Instructions: resume previous diet and activity Referrals: Curly Goss MD [Primary Care Provider] - Disposition: HOME - Home Medications Comprehensive Discharge Medication List: Ambulatory Orders Aspirin [Aspirin EC] 81 mg PO BID 04/12/17 Atorvastatin Ca [Lipitor] 20 mg PO HS 04/12/17 Cetirizine HCl [Zyrtec -] 10 mg PO DAILY 04/12/17 Dicyclomine HCl [Bentyl] 10 mg PO TID 04/12/17 Fluticasone Prop 0.05% Nasal [Flonase -] 2 spray NS DAILY 04/12/17 Levothyroxine [Synthroid -] 25 mcg PO DAILY 04/12/17 Metoprolol Tartrate 25 mg PO BID 04/12/17 Mometasone Furoate [Asmanex 220Mcg -] 1 inh IH DAILY 04/12/17 Montelukast Na [Singulair -] 10 mg PO HS 04/12/17 Pantoprazole Sodium [Protonix -] 40 mg PO DAILY 04/12/17 Paroxetine HCl [Paxil] 30 mg PO DAILY 04/12/17 Sucralfate [Carafate -] 1 gm PO DAILY PRN 04/12/17 Gabapentin [Neurontin -] 300 mg PO TID #90 cap 04/18/17 Tiotropium [place] [Spiriva] 1 puff IH DAILY #1 inh 04/18/17 Tramadol HCl [Ultram -] 50 mg PO Q6H PRN #30 tablet MDD 400mg 04/18/17
== END 2017-05-14 17:15 | disposition home health service (06) | DRG 948 ==
LOC: JER 01:11 → JERBED 05:08 → UNDOADMIN 05:38 → JERBED 05:38 → J4S 08:27
PROVIDERS: ADMIT Internal Medicine Geriatric Medicine; ATTEND Internal Medicine
DX: R41.82 Altered mental status, unspecified (principal); N17.9 Acute kidney failure, unspecified; Z68.41 Body mass index [BMI] 40.0-44.9, adult; C34.90 Malignant neoplasm of unspecified part of unspecified bronchus or lung; E66.9 Obesity, unspecified; J45.909 Unspecified asthma, uncomplicated; E03.9 Hypothyroidism, unspecified; I25.10 Atherosclerotic heart disease of native coronary artery without angina pectoris; E78.5 Hyperlipidemia, unspecified; F32.9 Major depressive disorder, single episode, unspecified
CPT/HCPCS: 36415; 70450-TC; 71010-TC; 80053; 80307; 81003; 82140; 82803; 84484; 85025; 87086; 90688; 93005; 93010; 97116-GP; 97161-GP; 99284-25